=== PATIENT | female | born 1935 | race Caucasian/White ===

== ENCOUNTER 2017-06-25 06:00 | Inpatient (IN) | payer MEDICARE, OTHER ==
--- NOTE | 2017-06-14 11:11 | NUR ---
PATIENT IS HERE TODAY FOR PREADMISSION APPOINTMENT. SHE IS SCHEDULED TO HAVE A RIGHT TOTAL KNEE REPLACEMENT ON 06/25/17. THE PATIENT IS VERY CONCERNED SHE HAS AN APPOINTMENT IS LESS THAN 20 MIN WITH [facility] AND DOES NOT WANT TO MISS THAT APPOINTMENT. SHE STATES SHE IS NOT GOING TO THE RETIREMENT IN [place] AND WOULD LIKE TO STAY IN THE HOSPITAL AFTER SURGERY UNTIL SHE CAN GO HOME. SHE DOES NOT HAVE FAMILY IN THE AREA AND DOES NOT HAVE LONG DISTANCE TO BE ABLE TO CONTACT HER DAUGHTER TO SEE IF SHE CAN COME AND STAY WITH HER. SHE STATES SHE HAS ONE STEP INTO HER HOME AND THEN MANY STEPS INSIDE THE HOME SINCE IT IS A TWO STORY HOME. SHE USES A WALKER TO GET AROUND INSIDE HER HOME AND A WC IF SHE GOES OUT BECAUSE SHE HAS A HARD TIME GETTING AROUND. SHE STATES SHE HAS A TUB/SHOWER COMBO BUT JUST DOES NOT KNOW HOW SHE WILL SHOWER WITHOUT HELP. BEFORE WE COULD FINISH THE PREADMIT SHE ASKED TO BE TAKEN TO HER APPOINTMENT WITH CARDIOLOGY. SHE WAS INSTRUCTED TO COME BACK TO DAY SURGERY SO SHE COULD FINISH THE APPOINTMENT AND GET INSTRUCTIONS ON DAY OF PROCEDURE. THIS INFORMATION WILL BE SENT TO DR JOSE MOELLER AND BOB PLANNING FOR FURTHER FOLLOW UP.
[~2017-06-25] VITALS: Ht 154.9 cm; Wt 74.8 kg
--- OUTSIDE RECORDS SUMMARY | ~2017-06-25 | XMS | Encounter Summary ---
Demographics + + + | Address | [address] | | | [place] [address] | + + + | Home Phone | | + + + | Preferred Language | Unknown | + + + | Marital Status | | + + + | Mandaeism Affiliation | 1001 | + + + | Race | Unknown | + + + | Ethnic Group | Unknown | + + + Author + + + | Author | [facility] | + + + | Organization | [facility] | + + + | Address | Unknown | + + + | Phone | Unavailable | + + + Support + + +---------+ + | Name | Relationship | Address | Phone | + + +---------+ + | Gale Archuleta | ECON | Unknown | | + + +---------+ + Care Team Providers + +------+ + | Care Sales Person Name | Role | Phone | + +------+ + | Christ Martinez DO | PCP | | + +------+ + Reason for Visit + + + | Reason | Comments | + + + | Labs Only | [facility] 10/23/2016, 03/27/2017 | + + + Encounter Details +--------+ + + + + | Date | Type | Department | Care Team | Description | +--------+ + + + + | 04/23/ | Documentati | [facility] [place] | Angeli Raymundo, | Labs Only | | 2018 | on Only | [facility] [place] | LINUX DEVOPS ENGINEER | ([place], [place]. | | | | [address] | | 10/23/2016, | | | | [facility] | | 03/27/2017) | | | | [address] | | | | | | [phone] | | | +--------+ + + + + Social History + +-------+ +--------+------+ | Tobacco Use | Types | Packs/Day | Years | Date | | | | | Used | | + +-------+ +--------+------+ | Never Smoker | | | | | + +-------+ +--------+------+ + +---+---+---+ | Smokeless Tobacco: | | | | | Never Used | | | | + +---+---+---+ + + +---------+ + | Alcohol Use | Drinks/We | oz/Week | Comments | | | ek | | | + + +---------+ + | No | 0 | 0.0 | | | | Standard | | | | | drinks or | | | | | | | | | | equivalen | | | | | t | | | + + +---------+ + + + + | Sex Assigned at | Date Recorded | | | | + + + | Not on file | | + + + as of this encounter Plan of Treatment Not on fileas of this encounter Visit Diagnoses Not on filein this encounter"
--- OUTSIDE RECORDS SUMMARY | ~2017-06-25 | XMS | Encounter Summary ---
Demographics + + + | Address | [address] | | | [place] [address] | + + + | Home Phone | | + + + | Preferred Language | Unknown | + + + | Marital Status | | + + + | Anglican Affiliation | 1001 | + + + | Race | Unknown | + + + | Ethnic Group | Unknown | + + + Author + + + | Author | [facility] | + + + | Organization | [facility] | + + + | Address | Unknown | + + + | Phone | Unavailable | + + + Support + + +---------+ + | Name | Relationship | Address | Phone | + + +---------+ + | Gale Archuleta | ECON | Unknown | | + + +---------+ + Care Team Providers + +------+ + | Care Geometrician Name | Role | Phone | + +------+ + | Christ Martinez DO | PCP | | + +------+ + Reason for Visit + + + | Reason | Comments | + + + | Labs Only | [facility] 05/29/17 | + + + Encounter Details +--------+ + + + + | Date | Type | Department | Care Team | Description | +--------+ + + + + | 06/14/ | Documentati | [facility] [place] | Nikia Jaramillo, | Labs Only ([facility] | | 2018 | on Only | Kim Carl | JABIER | Labs 05/29/17) | | | | [address] | | | | | | [address] | | | | | | [place] [address] | | | | | | [phone] | | | +--------+ + + + [...]
--- OUTSIDE RECORDS SUMMARY | ~2017-06-25 | XMS | Encounter Summary ---
Demographics + + + | Address | [address] | | | [place] [address] | + + + | Home Phone | | + + + | Preferred Language | Unknown | + + + | Marital Status | | + + + | Orthodox Affiliation | 1001 | + + + | Race | Unknown | + + + | Ethnic Group | Unknown | + + + Author + + + | Author | [facility] | + + + | Organization | [facility] | + + + | Address | Unknown | + + + | Phone | Unavailable | + + + Support + + +---------+ + | Name | Relationship | Address | Phone | + + +---------+ + | Gale Archuleta | ECON | Unknown | | + + +---------+ + Care Team Providers + +------+ + | Care Puttier Name | Role | Phone | + +------+ + | Christ Martinez DO | PCP | | + +------+ + Reason for Visit +--------+ + | Reason | Comments | +--------+ + | Other | [facility] 10/23/16 | +--------+ + Encounter Details +--------+ + + + + | Date | Type | Department | Care Team | Description | +--------+ + + + + | 03/30/ | Documentati | [facility] [place] | Asia Lara CMA | Other ([facility] | | 2018 | on Only | [facility] [place] | | Labs 10/23/16) | | | | [address] | | | | | | [place] | | | | | | [address] | | | | | | [phone] | | | +--------+ + + + [...]
--- OUTSIDE RECORDS SUMMARY | ~2017-06-25 | XMS | Clinical Summary ---
Demographics + + + | Address | [address] | | | [place] [address] | + + + | Home Phone | | + + + | Preferred Language | Unknown | + + + | Marital Status | | + + + | Jewish Affiliation | 1001 | + + + | Race | Unknown | + + + | Ethnic Group | Unknown | + + + Author + + + | Author | [facility] | + + + | Organization | [facility] [employer] | + + + | Address | Unknown | + + + | Phone | Unavailable | + + + Support + + +---------+ + | Name | Relationship | Address | Phone | + + +---------+ + | Gale Archuleta | ECON | Unknown | | + + +---------+ + Care Team Providers + +------+ + | Care Basket Sorter Name | Role | Phone | + +------+ + | Christ Martinez DO | PP | | + +------+ + Allergies + + + + + + | Active Allergy | Reactions | Severity | Noted | Comments | | | | | Date | | + + + + + + | Tetanus Antitoxin | Edema | Medium | 12/31/19 | | | | | | 15 | | + + + + + + Current Medications + + +-------+---------+------+------+-------+ | Prescription | Sig. | Disp. | Refills | Star | End | Statu | | | | | | t | Date | s | | | | | | Date | | | + + +-------+---------+------+------+-------+ | gabapentin | Take 300 mg by mouth | | | | | Activ | | (NEURONTIN) 300 MG | every evening. | | | | | e | | capsule | | | | | | | + + +-------+---------+------+------+-------+ | felodipine | Take 5 mg by mouth | | | | | Activ | | (PLENDIL) 5 MG 24 hr | daily. | | | | | e | | tablet | | | | | | | + + +-------+---------+------+------+-------+ | insulin aspart | Inject into the | | | | | Activ | | (NOVOLOG) 100 | skin 3 (three) times | | | | | e | | UNIT/ML | daily before meals. | | | | | | | injectionIndications | 10 units before | | | | | | | : Type 2 Diabetes | breakfast and lunch, | | | | | | | Mellitus | and 15 units before | | | | | | | | dinner | | | | | | + + +-------+---------+------+------+-------+ | insulin glargine | Inject 30 Units into | | | | | Activ | | (LANTUS) 100 UNIT/ML | the skin nightly. | | | | | e | | injection | | | | | | | + + +-------+---------+------+------+-------+ | atorvastatin | Take 10 mg by mouth | | | | | Activ | | (LIPITOR) 10 MG | nightly. | | | | | e | | tablet | | | | | | | + + +-------+---------+------+------+-------+ | | Take 1 tablet by | | | | | Activ | | lisinopril-hydrochlo | mouth 2 (two) times | | | | | e | | rothiazide | daily. | | | | | | | (ZESTORETIC) 20-12.5 | | | | | | | | MG per tablet | | | | | | | + + +-------+---------+------+------+-------+ | celecoxib | Take 200 mg by mouth | | | | | Activ | | (CELEBREX) 200 MG | as needed for Pain. | | | | | e | | capsule | Takes 1-2 Times | | | | | | | | per week | | | | | | + + +-------+---------+------+------+-------+ | metoprolol | Take 100 mg by mouth | | | | | Activ | | (TOPROL-XL) 100 MG | daily. | | | | | e | | 24 hr tablet | | | | | | | + + +-------+---------+------+------+-------+ | Turmeric 500 MG | Take 1 capsule by | | | | | Activ | | CAPS | mouth daily. | | | | | e | + + +-------+---------+------+------+-------+ | nitrofurantoin, | Take 100 mg by mouth | | | | | Activ | | macrocrystal-monohyd | 2 (two) times | | | | | e | | rate, (MACROBID) 100 | daily. | | | | | | | MG | | | | | | | | capsuleIndications: | | | | | | | | Uncomplicated | | | | | | | | Urinary Tract | | | | | | | | Infection | | | | | | | + + +-------+---------+------+------+-------+ | atenolol | Take 50 mg by mouth | | | | 05/28 | Disco | | (TENORMIN) 50 MG | daily. | | | | 0 | ntinu | | tablet | | | | | 18 | ed | + + +-------+---------+------+------+-------+ Active Problems + + + | Problem | Noted Date | + + + | Chest pain | 01/28/2015 | + + + + + | Last Assessment & Plan: She reports chest pain many months | | back did not happen againShe feel better- says her BP And DM are | | better controlled nowShe do not want to do any testing including | | stress test or angiogram at this time- she want to see me incase | | of recurrence of symptomsEcho done recently in [place] | | showed hyperdynamic LV function with concentric remodelling- - | | could be from hypovolemia/ dehydration- encourage to have good | | hydrationMay continue atenolol, Lisinopril/hctz, StatinContinue | | risk factor modificationFollow up 6 months or recurrence of | | symptoms. | + + + + + | Pulmonary HTN | 01/28/2015 | + + + + + | Last Assessment & Plan: Mid to moderate TR on echo with | | moderate-severe PHTN on echoDiscussed with patient- she feel | | improved currently and do not want to do any additional | | testingContinue Lisinopril/hctz, Atenolol, ASAThis could be a | | secondary PHTN from LV diastolic dysfunciton | + + + + + | Chronic diastolic CHF (congestive heart failure) | 01/28/2015 | + + + + + | Last Assessment & Plan: Heart failure of normal EF | | Appears well compensated currently | | No chest pain, no SOB | | Bradly edema improved | | Continue Lisinopril, Atenolol | | Follow up in 6 months. | + + Encounters +--------+ + + + + | Date | Type | Specialty | Care Team | Description | +--------+ + + + + | 06/14/ | Office | | Cherie Coronado | Mild diastolic | | 2018 | Visit | | [place] | dysfunction (Primary | | | | | | Dx); Mild pulmonary | | | | | | hypertension (HCC); | | | | | | Mild tricuspid | | | | | | regurgitation; | | | | | | Hypertension goal BP | | | | | | (blood pressure) < | | | | | | 140/80; Encounter | | | | | | for pre-operative | | | | | | cardiovascular | | | | | | clearance; Murmur, | | | | | | cardiac; | | | | | | Hyperlipidemia, | | | | | | unspecified | | | | | | hyperlipidemia type; | | | | | | History of | | | | | | precordial chest | | | | | | pain; Stage 3 | | | | | | chronic kidney | | | | | | disease; Type 2 | | | | | | diabetes mellitus | | | | | | without | | | | | | complication, with | | | | | | long-term current | | | | | | use of insulin (HCC) | +--------+ + + + + | 06/14/ | Documentati | | Nikia Jaramillo, | Labs Only ([facility] | | 2017 | on Only | | [place] | Labs 05/29/17) | +--------+ + + + + | 06/11/ | Documentati | | Francy Stewart, | Other ([facility] | | 2017 | on Only | | [place] | Labs) | +--------+ + + + + | 06/04/ | Documentati | | Carrol, | Labs Only | 2017 | on Only | | CHEPE Alvarado | | +--------+ + + + + | 05/22/ | Ancillary | | Cherie Coronado | Mild diastolic | | 2017 | Procedure | | [place] | dysfunction; Other | | | | | | secondary pulmonary | | | | | | hypertension; | | | | | | Tricuspid 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, | | | | | | unspecified | | | | | | etiology; | | | | | | Hypertension goal BP | | | | | | (blood pressure) < | | | | | | 140/80; Encounter | | | | | | for pre-operative | | | | | | cardiovascular | | | | | | clearance; Murmur, | | | | | | cardiac | +--------+ + + + + | 05/03/ | Office | | Cherie Coronado | History of | | 2017 | Visit | | [place] | precordial chest | | | | | | pain (Primary Dx); | | | | | | Mild diastolic | | | | | | dysfunction; Other | | | | | | secondary pulmonary | | | | | | hypertension; | | | | | | Tricuspid 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, | | | | | | unspecified | | | | | | etiology; | | | | | | Hypertension goal BP | | | | | | (blood pressure) < | | | | | | 140/80; | | | | | | Hyperlipidemia, | | | | | | unspecified | | | | | | hyperlipidemia type; | | | | | | Type 2 diabetes | | | | | | mellitus without | | | | | | complication, with | | | | | | long-term current | | | | | | use of insulin | | | | | | (HCC); Stage 3 | | | | | | chronic kidney | | | | | | disease; Encounter | | | | | | for pre-operative | | | | | | cardiovascular | | | | | | clearance | +--------+ + + + + | 04/23/ | Documentati | | Angeli Raymundo | Labs Only | | 2018 | on Only | | [employer] SU[employer] TECHNICIAN | (Calvin Gama. | | | | | | 10/23/2016, | | | | | | 03/27/2017) | +--------+ + + + + | 04/23/ | Documentati | | Rosaura, | Other | | 2018 | on Only | | JABIER Chisholm | (10/26/16.Christ | | | | | | Michelle.Tho | | | | | | notes) | +--------+ + + + + | 04/04/ | Documentati | | Ashley Gerber MA | Labs Only (09/2016) | | 2018 | on Only | | | | +--------+ + + + + | 03/30/ | Documentati | | Asia Lara CMA | Other ([facility] | | 2018 | on Only | | | Labs 10/23/16) | +--------+ + + + + from Last 3 Months Family History + + +------+ + | Medical History | Relation | Name | Comments | + + +------+ + | Diabetes type II | Father | | | + + +------+ + | Breast cancer | Sister | | | + + +------+ + | Cancer | Sister | | | + + +------+ + | Diabetes type II | Sister | | | + + +------+ + + +------+ + + | Relation | Name | Status | Comments | + +------+ + + | Father | | | Hx DM | | | | (Age | | | | | 87) | | + +------+ + + | Mother | | | unknown health status and cause of | | | | (Age | | | | | late | | | | | 80's ) | | + +------+ + + | Sister | | | | + +------+ + + Social History + +-------+ +--------+------+ [...] on file | | + + + Last Filed Vital Signs + + + + | Vital Sign | Reading | Time Taken | + + + + | Blood Pressure | 122/52 | 06/14/2017 10:48 AM PDT | + + + + | Pulse | 74 | 06/14/2017 10:48 AM PDT | + + + + | Temperature | - | - | + + + + | Respiratory Rate | 18 | 06/14/2017 10:48 AM PDT | + + + + | Oxygen Saturation | 97% | 06/14/2017 10:48 AM PDT | + + + + | Inhaled Oxygen | - | - | | Concentration | | | + + + + | Weight | 72.5 kg (159 lb 14.4 | 06/14/2017 10:48 AM PDT | | | oz) | | + + + + | Height | 154.9 cm (5' 1") | 06/14/2017 10:48 AM PDT | + + + + | Body Mass Index | 30.21 | 06/14/2017 10:48 AM PDT | + + + + Plan of Treatment + + + + + | Health Maintenance | Due Date | Last Done | Comments | + + + + + | DEXA SCAN SCREENING | | | | | | 0 | | | + + + + + | Vaccine: | | | | | Pneumococcal 65+ | 0 | | | | Low/Medium Risk (1 | | | | | of 2 - PCV13) | | | | + + + + + | Vaccine: Influenza | | | | | (Season Ended) | 8 | | | + + + + + Procedures + +--------+ + + + | Procedure Name | Priori | Date/Time | Associated Diagnosis | Comments | | | ty | | | | + +--------+ + + + | ECHO OUTSIDE | Routin | 05/22/2017 | Mild diastolic | Results for this | | INTERPRETATION | e | 10:56 AM | dysfunction Other | procedure are in the | | STANDARD | | PDT | secondary pulmonary | results section. | | | | | hypertension | | | | | | Tricuspid 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, | | | | | | unspecified etiology | | | | | | Hypertension goal | | | | | | BP (blood pressure) | | | | | | < 140/80 Encounter | | | | | | for pre-operative | | | | | | cardiovascular | | | | | | clearance Murmur, | | | | | | cardiac | | + +--------+ + + + from Last 3 Months Results Lipid panel (06/01/2017 9:30 AM) + + + + | Component | Value | Ref Range | + + + + | CHOLESTEROL | 125 | 200 mg/dL | + + + + | TRIGLYCERIDES | 120 | 30 - 150 mg/dL | + + + + | HDL CHOL | 38.0 (A) | 40 mg/dl | + + + + | LDL CALC | 63 | 100 mg/dL | + + + + | LDl/HDL Ratio | | | + + + + | CHOL/HDL | 3.3 | 4.44 | + + + + | VLDL CHOL | 24 | 4 - 40 mg/dL | + + + + | NON HDL CHOL | 87 | 130 | + + + + + + + | Specimen | Performing Laboratory | + + + | Blood | [facility] [address] [place] [address] [place] | | | [id number] | + + + ECHO outside interpretation standard (05/22/2017 10:56 AM) + + + | Specimen | Performing Laboratory | + + + | | [id number] [address] | + + + + + | Impressions | + + | 1. Left ventricular systolic function is hyperdynamic with an estimated EF of >70%. | | 2. The diastolic filling pattern indicates impaired relaxation consistent with mild | | dysfunction (Grade I). 3. The right ventricle is normal in size and function. 4. | | Gucz-nf-yfrjugiw eccentric tricuspid regurgitation present. 5. There is mild pulmonary | | hypertension. | + + + + | Narrative | + + | Patient Name: Alfonso Rios Date of : 1935 | | Performing Physician: GLADYS WEI MD | | INDICATIONS | | HTN, Murmur CONCLUSIONS 1. Left ventricular systolic | | function is hyperdynamic with an estimated EF of >70%. 2. The diastolic filling pattern | | indicates impaired relaxation consistent with mild dysfunction (Grade I). 3. The right | | ventricle is normal in size and function. 4. Gljl-xq-mfptmkgj eccentric tricuspid | | regurgitation present. 5. There is mild pulmonary hypertension. FINDINGS -------- | | ECG rhythm: Sinus rhythm. Study: A 2-dimensional transthoracic echocardiogram with | | m-mode, spectral and color flow Doppler was perfomed. Study: This was a technically | | adequate study. Left Ventricle: Left ventricular systolic function is hyperdynamic with | | an estimated EF of >70%. Left Ventricle: The left ventricle cavity size is normal. | | Left Ventricle: Left ventricular wall thickness is normal. Left Ventricle: No regional | | wall motion abnormalities. Left Ventricle: The diastolic filling pattern indicates | | impaired relaxation consistent with mild dysfunction (Grade I). Right Ventricle: The | | right ventricle is normal in size and function. Right Ventricle: The right ventricle | | is normal in size. Left Atrium: The left atrial size is normal. Right Atrium: The | | right atrial size is normal. Aortic Valve: The aortic valve appears to be trileaflet. | | Aortic Valve: There is mild aortic valve sclerosis without stenosis. Aortic Valve: | | There is no evidence of aortic stenosis. Mitral Valve: There is trace mitral | | regurgitation. Mitral Valve: No evidence of MVP. Mitral Valve: Mild mitral annular | | calcification present. Tricuspid Valve: The tricuspid valve appears structurally | | normal. Tricuspid Valve: Zchl-rj-pxpaessa eccentric tricuspid regurgitation present. | | Tricuspid Valve: There is mild pulmonary hypertension. Tricuspid Valve: The right | | ventricular systolic pressure (pulmonary artery systolic pressure), as measured by | | Doppler, is 38 - 43 mm Hg. Pulmonic Valve: The pulmonic valve is normal. Pulmonic | | Valve: Mild pulmonic regurgitation. Pericardium: There is no pericardial effusion. | | IVC/Hepatic Veins: The IVC is normal size (1.5-2.5cm) and collapses >50% with sniff, | | consistent with central venous pressures of 5-10mmHg. Aorta: The aortic root, ascending | | aorta and aortic arch are normal. Mass: No mass visualized Thrombus: No clot | | visualized Thrombus: No vegetation visualized. Septum: No ASD observed. Septum: No | | VSD observed. MEASUREMENTS Ao asc: 2.99 cm Ao Diam: 2.73 cm | | Ao sinus: 2.[address] junct: 2.85 cm IVC: 1.48 cm LA Diam: 3.43 | | cm LA Major: 4.67 cm EDV(Teich): 55.07 ml IVSd: 0.97 cm LVIDd: 3.61 | | cm LVPWd: 0.98 cm LVOT Area: 3.67 cm2 LVOT Diam: 2.16 cm %FS: 32.48 | | % EF(Teich): 61.75 % ESV(Teich): 21.06 ml LVIDs: 2.44 cm SV(Teich): | | 34.01 ml RA Major: 4.92 cm RV Major: 7.41 cm RVIDd: 2.69 cm LVEF MOD | | A2C: 69.31 % SV MOD A2C: 36.16 ml LVEF MOD A4C: 66.70 % SV MOD A4C: | | 39.93 ml EF Biplane: 66.91 % LVEDV MOD BP: 55.75 ml LVESV MOD BP: 18.44 | | ml LVEDV MOD A2C: 52.17 ml LVLd A2C: 7.13 cm LVEDV MOD A4C: 59.86 ml | | LVLd A4C: 7.10 cm LVESV MOD A2C: 16.01 ml LVLs A2C: 5.53 cm LVESV MOD | | A4C: 19.93 ml LVLs A4C: 5.94 cm LAESV(A-L): 50.00 ml LAESV Index | | (A-L): 28.73 ml/m2 LAAs A2C: 15.00 cm2 LAESV A-L A2C: 43.59 ml LALs | | A2C: 4.38 cm LAAs A4C: 17.21 cm2 LAESV A-L A4C: 50.39 ml LALs A4C: | | 4.99 cm RAAs: 12.71 cm2 RAESV A-L: 26.83 ml RAESV MOD: 26.68 ml | | RALs: 5.11 cm TAPSE: 2.43 cm AV maxP.01 mmHg AV meanP.84 | | mmHg AV Vmax: 1.65 m/s AV Vmean: 1.15 m/s AV VTI: 35.88 cm ADONAY Vmax: | | 2.44 cm2 ADONAY (VTI): 2.69 cm2 AVAI Vmax: 0.00 cm2/m2 AVAI (VTI): 0.00 | | cm2/m2 LVOT maxP.85 mmHg LVOT meanP.98 mmHg LVSI Dopp: 55.56 | | ml/m2 LVSV Dopp: 96.67 ml LVOT Vmax: 1.10 m/s LVOT Vmean: 0.81 m/s LVOT | | VTI: 26.29 cm MV A Boaz: 1.17 m/s MV DecT: 260.62 ms MV E Boaz: 0.76 | | m/s MV E/A Ratio: 0.65 MV PHT: 75.58 ms MVA By PHT: 2.91 cm2 Septal | | e': 0.05 m/s Septal E/e': 13.53 RAP: 5 mmHg RVSP: 37.73 mmHg TR | | maxP.73 mmHg TR Vmax: 2.86 m/s State Inspector: Authenticated | | by: GLADYS WEI MD Report Date/Time: -- [id number] | + + + + | Procedure Note | + + | Neil, Rad Results In - 05/22/2017 7:21 PM PDT Patient Name: Cesar Rios of | | : 5Accession: [id number] Physician: GLADYS WEI MD | | INDICATIONS HTN | | , MurmurCONCLUSIONS 1. Left ventricular systolic function is hyperdynamic with | | an estimated EF of >70%.2. The diastolic filling pattern indicates impaired relaxation | | consistent with mild dysfunction (Grade I).3. The right ventricle is normal in size and | | function.4. Gazp-fb-tuyrbzxs eccentric tricuspid regurgitation present.5. There is mild | | pulmonary hypertension.FINDINGS--------ECG rhythm: Sinus rhythm.Study: A 2-dimensional | | transthoracic echocardiogram with m-mode, spectral and color flow Doppler was perfomed. | | Study: This was a technically adequate study.Left Ventricle: Left ventricular systolic | | function is hyperdynamic with an estimated EF of >70%. Left Ventricle: The left | | ventricle cavity size is normal. Left Ventricle: Left ventricular wall thickness is | | normal. Left Ventricle: No regional wall motion abnormalities. Left Ventricle: The | | diastolic filling pattern indicates impaired relaxation consistent with mild dysfunction | | (Grade I).Right Ventricle: The right ventricle is normal in size and function. Right | | Ventricle: The right ventricle is normal in size.Left Atrium: The left atrial size is | | normal.Right Atrium: The right atrial size is normal.Aortic Valve: The aortic valve | | appears to be trileaflet. Aortic Valve: There is mild aortic valve sclerosis without | | stenosis. Aortic Valve: There is no evidence of aortic stenosis.Mitral Valve: There is | | trace mitral regurgitation. Mitral Valve: No evidence of MVP. Mitral Valve: Mild mitral | | annular calcification present.Tricuspid Valve: The tricuspid valve appears structurally | | normal. Tricuspid Valve: Yxxw-cp-ewepmimt eccentric tricuspid regurgitation present. | | Tricuspid Valve: There is mild pulmonary hypertension. Tricuspid Valve: The right | | ventricular systolic pressure (pulmonary artery systolic pressure), as measured by | | Doppler, is 38 - 43 mm Hg.Pulmonic Valve: The pulmonic valve is normal. Pulmonic Valve: | | Mild pulmonic regurgitation.Pericardium: There is no pericardial effusion.IVC/Hepatic | | Veins: The IVC is normal size (1.5-2.5cm) and collapses >50% with sniff, consistent with | | central venous pressures of 5-10mmHg.Aorta: The aortic root, ascending aorta and aortic | | arch are normal.Mass: No mass visualizedThrombus: No clot visualized Thrombus: No | | vegetation visualized.Septum: No ASD observed. Septum: No VSD | | observed.MEASUREMENTS Ao asc: 2.99 cmAo Diam: 2.73 cmAo sinus: 2.86 | | cmAo st junct: 2.85 cmIVC: 1.48 cmLA Diam: 3.43 cmLA Major: 4.67 cmEDV(Teich): | | 55.07 mlIVSd: 0.97 cmLVIDd: 3.61 cmLVPWd: 0.98 cmLVOT Area: 3.67 [id number] Diam: | | 2.16 cm%FS: 32.48 %EF(Teich): 61.75 %ESV(Teich): 21.06 mlLVIDs: 2.44 | | cmSV(Teich): 34.01 mlRA Major: 4.92 cmRV Major: 7.41 cmRVIDd: 2.69 cmLVEF MOD | | A2C: 69.31 %SV MOD A2C: 36.16 mlLVEF MOD A4C: 66.70 %SV MOD A4C: 39.93 mlEF | | Biplane: 66.91 %LVEDV MOD BP: 55.75 mlLVESV MOD BP: 18.44 mlLVEDV MOD A2C: 52.17 | | mlLVLd A2C: 7.13 cmLVEDV MOD A4C: 59.86 mlLVLd A4C: 7.10 cmLVESV MOD A2C: 16.01 | | mlLVLs A2C: 5.53 cmLVESV MOD A4C: 19.93 mlLVLs A4C: 5.94 cmLAESV(A-L): 50.00 | | mlLAESV Index (A-L): 28.73 ml/m2LAAs A2C: 15.00 [id number] A-L A2C: 43.59 mlLALs | | A2C: 4.38 cmLAAs A4C: 17.21 [id number] A-L A4C: 50.39 mlLALs A4C: 4.99 cmRAAs: | | 12.71 [id number] A-L: 26.83 mlRAESV MOD: 26.68 mlRALs: 5.11 cmTAPSE: 2.43 cmAV | | maxP.01 mmHgAV meanP.84 mmHgAV Vmax: 1.65 m/Theodore Vmean: 1.15 m/Theodore VTI: | | 35.88 cmAVA Vmax: 2.44 cm2AVA (VTI): 2.69 uq4FRSD Vmax: 0.00 cm2/m2AVAI (VTI): | | 0.00 cm2/m2LVOT maxP.85 mmHgLVOT meanP.98 mmHgLVSI Dopp: 55.56 ml/m2LVSV | | Dopp: 96.67 mlLVOT Vmax: 1.10 m/sLVOT Vmean: 0.81 m/sLVOT VTI: 26.29 cmMV A Boaz: | | 1.17 m/sMV DecT: 260.62 msMV E Boaz: 0.76 m/sMV E/A Ratio: 0.65 MV PHT: 75.58 | | msMVA By PHT: 2.91 ic3Nvgsxb e': 0.05 m/sSeptal E/e': 13.53 RAP: 5 mmHgRVSP: | | 37.73 mmHgTR maxP.73 mmHgTR Vmax: 2.86 m/sSonographer: Authenticated by: | | YASMANI BURCHeport Date/Time: -- [id number]:1. Left ventricular | | systolic function is hyperdynamic with an estimated EF of >70%.2. The diastolic filling | | pattern indicates impaired relaxation consistent with mild dysfunction (Grade I).3. The | | right ventricle is normal in size and function.4. Epwa-wq-kubmfaaj eccentric tricuspid | | regurgitation present.5. There is mild pulmonary hypertension. | | | |MEASUREMENTS | | | |Ao asc: 2.99 cm | |Ao Diam: 2.73 cm | |Ao sinus: 2.86 cm | |Ao st junct: 2.85 cm | |IVC: 1.48 cm | |LA Diam: 3.43 cm | |LA Major: 4.67 cm | |EDV(Teich): 55.07 ml | |IVSd: 0.97 cm | |LVIDd: 3.61 cm | |LVPWd: 0.98 cm | |LVOT Area: 3.67 cm2 | |LVOT Diam: 2.16 cm | |%FS: 32.48 % | |EF(Teich): 61.75 % | |ESV(Teich): 21.06 ml | |LVIDs: 2.44 cm | |SV(Teich): 34.01 ml | |RA Major: 4.92 cm | |RV Major: 7.41 cm | |RVIDd: 2.69 cm | |LVEF MOD A2C: 69.31 % | |SV MOD A2C: 36.16 ml | |LVEF MOD A4C: 66.70 % | |SV MOD A4C: 39.93 ml | |EF Biplane: 66.91 % | |LVEDV MOD BP: 55.75 ml | |LVESV MOD BP: 18.44 ml | |LVEDV MOD A2C: 52.17 ml | |LVLd A2C: 7.13 cm | |LVEDV MOD A4C: 59.86 ml | |LVLd A4C: 7.10 cm | |LVESV MOD A2C: 16.01 ml | |LVLs A2C: 5.53 cm | |LVESV MOD A4C: 19.93 ml | |LVLs A4C: 5.94 cm | |LAESV(A-L): 50.00 ml | |LAESV Index (A-L): 28.73 ml/m2 | |LAAs A2C: 15.00 cm2 | |LAESV A-L A2C: 43.59 ml | |LALs A2C: 4.38 cm | |LAAs A4C: 17.21 cm2 | |LAESV A-L A4C: 50.39 ml | |LALs A4C: 4.99 cm | |RAAs: 12.71 cm2 | |RAESV A-L: 26.83 ml | |RAESV MOD: 26.68 ml | |RALs: 5.11 cm | |TAPSE: 2.43 cm | |AV maxP.01 mmHg | |AV meanP.84 mmHg | |AV Vmax: 1.65 m/s | |AV Vmean: 1.15 m/s | |AV VTI: 35.88 cm | |ADONAY Vmax: 2.44 cm2 | |ADONAY (VTI): 2.69 cm2 | |AVAI Vmax: 0.00 cm2/m2 | |AVAI (VTI): 0.00 cm2/m2 | |LVOT maxP.85 mmHg | |LVOT meanP.98 mmHg | |LVSI Dopp: 55.56 ml/m2 | |LVSV Dopp: 96.67 ml | |LVOT Vmax: 1.10 m/s | |LVOT Vmean: 0.81 m/s | |LVOT VTI: 26.29 cm | |MV A Boaz: 1.17 m/s | |MV DecT: 260.62 ms | |MV E Boaz: 0.76 m/s | |MV E/A Ratio: 0.65 | |MV PHT: 75.58 ms | |MVA By PHT: 2.91 cm2 | |Septal e': 0.05 m/s | |Septal E/e': 13.53 | |RAP: 5 mmHg | |RVSP: 37.73 mmHg | |TR maxP.73 mmHg | |TR Vmax: 2.86 m/s | | | |State Inspector: | |Authenticated by: GLADYS WEI MD | |Report Date/Time: -- [id number] | | | |IMPRESSION: | |1. Left ventricular systolic function is hyperdynamic with an estimated EF of >70%. | |2. The diastolic filling pattern indicates impaired relaxation consistent with mild dysfunc tion (Grade I). | |3. The right ventricle is normal in size and function. | |4. Anen-wd-mnhxgznw eccentric tricuspid regurgitation present. | |5. There is mild pulmonary hypertension. | + + EKG STANDARD 12 LEAD (05/03/2017 10:46 AM) + + + + | Component | Value | Ref Range | + + + + | Ventricular Rate | 68 | BPM | + + + + | Atrial Rate | 68 | BPM | + + + + | P-R Interval | 152 | ms | + + + + | QRS Duration | 84 | ms | + + + + | Q-T Interval | 424 | ms | + + + + | QTC Calculation | 450 | ms | | (Alissa) | | | + + + + | Calculated P [place] | 53 | degrees | + + + + | Calculated R [place] | 73 | degrees | + + + + | Calculated T [place] | 48 | degrees | + + + + | Diagnosis | Please refer to Providers office visit note | | | | for Providers Interpretation.Confirmed by | | | | [facility], ADAN Maldonado ([id number]), | | | | non linear editor Magdaleno De León ([id number]) on 05/03/2017 | | | | 10:58:32 AM | | + + + + + + + | Specimen | Performing Laboratory | + + + | | [facility] [address] [place] [address] | + + + from Last 3 Months Insurance + +--------+ +------+-------+ + | Payer | Benefi | Subscriber | Type | Phone | Address | | | t Plan | ID | | | | | | / | | | | | | | Group | | | | | + +--------+ +------+-------+ + | MEDICARE | MEDICA | xxxxxxxxxx | | | [address] | | | RE | | | | [place] [address] | | | IP-OP | | | | | + +--------+ +------+-------+ + | MEDICAID | MEDICA | xxxxxxxx | | | [address] | | | ID | | | | [place] | | | [place] | | | | [phone] | + +--------+ +------+-------+ + + +--------+ +--------+ + + | Guarantor Name | Accoun | Relation to | Date | Phone | Billing Address | | | t Type | Patient | of | | | | | | | | | | + +--------+ +--------+ + + | ALFONSO RIOS | Person | Self | [birth year] | Home: | [address] | | | al/Fam | | 1936 | [phone] [place] | | | [place]enn | | | [phone] [phone] | + +--------+ +--------+ + +
--- OUTSIDE RECORDS SUMMARY | ~2017-06-25 | XMS | Encounter Summary ---
Demographics + + + | Address | [address] | | | [place] [address] | + + + | Home Phone | | + + + | Preferred Language | Unknown | + + + | Marital Status | | + + + | Caodaism Affiliation | 1001 | + + + | Race | Unknown | + + + | Ethnic Group | Unknown | + + + Author + + + | Author | [facility] | + + + | Organization | [facility] | + + + | Address | Unknown | + + + | Phone | Unavailable | + + + Support + + +---------+ + | Name | Relationship | Address | Phone | + + +---------+ + | Gale Archuleta | ECON | Unknown | | + + +---------+ + Care Team Providers + +------+ + | Care Tire Retreader Name | Role | Phone | + +------+ + | Christ Martinez DO | PCP | | + +------+ + Reason for Visit +--------+ + | Reason | Comments | +--------+ + | Other | [facility] | +--------+ + Encounter Details +--------+ + + + + | Date | Type | Department | Care Team | Description | +--------+ + + + + | 06/11/ | Documentati | [facility] | Francy Stewart, | Other ([facility] | | 2018 | on Only | [facility] | JABIER | Labs) | | | | [address] | | | | | | [place] | | | | | | [address] | | | | | | [phone] | | | +--------+ + + + [...] Treatment Not on fileas of this encounter Results Lipid panel (06/01/2017 9:30 AM) + [...] | + + + | Blood | [address] | | | [address] | + + + in this encounter Visit Diagnoses Not on filein this encounter"
--- OUTSIDE RECORDS SUMMARY | ~2017-06-25 | XMS | Clinical Summary ---
Demographics + + + | Address | [address] | | | [place] [address] | + + + | Home Phone | | + + + | Preferred Language | Unknown | + + + | Marital Status | Unknown | + + + | Mu-Ism Affiliation | Unknown | + + + | Race | Unknown | + + + | Ethnic Group | Unknown | + + + Author + + + | Author | [facility] | | | and [facility] | + + + | Organization | [facility] | | | and [facility] | + + + | Address | Unknown | + + + | Phone | Unavailable | + + + Support + + +---------+ + | Name | Relationship | Address | Phone | + + +---------+ + | None,Per Patient | ECON | Unknown | | + + +---------+ + Care Team Providers + +------+ + | Care Sports Photographer Name | Role | Phone | + +------+ + | Christ Martinez DO | PP | | + +------+ + Allergies + + + + + + | Active Allergy | Reactions | Severity | Noted | Comments | | | | | Date | | + + + + + + | Tetanus Toxoids | | | 03/30/19 | | | | | | 15 [...] | | Activ | | (NEURONTIN) 300 mg | nightly. | | | | | e | | capsule | | | | | | | + + +-------+---------+------+------+-------+ Active Problems + + + | Problem | Noted Date | + + + | Peripheral neuropathy | 03/30/2014 | + + + | DDD (degenerative disc disease), lumbar | 03/30/2014 | + + + | Bilateral leg weakness | 03/30/2014 | + + + | Diabetes mellitus (HCC) | 03/30/2014 | + + + Social History + +-------+ +--------+------+ | Tobacco Use | Types | Packs/Day | Years | Date | | | | | Used | | + +-------+ +--------+------+ | Never Smoker | | | | | + +-------+ +--------+------+ + + + | Sex Assigned at | Date Recorded | | | | + + + | Not on file | | + + + Last Filed Vital Signs + + + + | Vital Sign | Reading | Time Taken | + + + + | Blood Pressure | - | - | + + + + | Pulse | - | - | + + + + | Temperature | - | - | + + + + | Respiratory Rate | - | - | + + + + | Oxygen Saturation | - | - | + + + + | Inhaled Oxygen | - | - | | Concentration | | | + + + + | Weight | 77.1 kg (170 lb) | 03/30/20141099 PST | + + + + | Height | 154.9 cm (5' 1") | 03/30/20141099 PST | + + + + | Body Mass Index | 32.12 | 03/30/20141099 PST | + + + + Plan of Treatment + + + + + | Health Maintenance | Due Date | Last Done | Comments | + + + + + | Diabetic Eye Exam | | | | | (Bi-Annually) | 3 | | | + + + + + | Diabetic Foot Exam | | | | | | 3 | | | + + + + + | Hemoglobin A1c Q3 | | | | | Months | 3 | | | + + + + + | Vaccine: | | | | | Pneumococcal (PPSV23 | 0 | | | | only) 65+ | | | | | Low/Medium Risk (1 | | | | | of 1 - PPSV23) | | | | + + + + + | Microalbumin | | | | | Screening | 5 | | | + + + + + | Vaccine: Influenza | | | | | (Season Ended) | 8 | | | + + + + + Results Not on filefrom Last 3 Months Insurance + +--------+ +--------+ +---------+ | Payer | Benefi | Subscriber | Type | Phone | Address | | | t Plan | ID | | | | | | / | | | | | | | Group | | | | | + +--------+ +--------+ +---------+ | [employer] | FAMILY | xxxxxxxxxx | Medica | [id number] | | MEDICARE | CARE | | re | [id number] | | | | PRMCR | | | | | | | MDCR | | | | | | | HMO | | | | | + +--------+ +--------+ +---------+ | [employer] | MODA | [id number] | Medica | [phone] | | | MEDICAID HMO | HEALTH | | id | [id number] | | | | MDCD | | | | | | | HMO [place] | | | | | + +--------+ +--------+ +---------+ + +--------+ +--------+ + + | Guarantor Name | Accoun | Relation to | Date | Phone | Billing Address | | | t Type | Patient | of | | | | | | | | | | + +--------+ +--------+ + + | ALFONSO AGGARWAL | Person | Self | [birth year] | Home: | [address] | | | al/Fam | | 1936 | [phone] | [place] | | | [place] | | [phone] | + +--------+ +--------+ + +
--- OUTSIDE RECORDS SUMMARY | ~2017-06-25 | XMS | Encounter Summary ---
Demographics + + + | Address | [address] | | | [place] [address] | + + + | Home Phone | | + + + | Preferred Language | Unknown | + + + | Marital Status | | + + + | Temple Affiliation | 1001 | + + + | Race | Unknown | + + + | Ethnic Group | Unknown | + + + Author + + + | Author | [facility] | + + + | Organization | [facility] | + + + | Address | Unknown | + + + | Phone | Unavailable | + + + Support + + +---------+ + | Name | Relationship | Address | Phone | + + +---------+ + | Gale Archuleta | ECON | Unknown | | + + +---------+ + Care Team Providers + +------+ + | Care Cna Hha Name | Role | Phone | + +------+ + | Christ Martinez DO | PCP | | + +------+ + Encounter Details +--------+ + + + + | Date | Type | Department | Care Team | Description | +--------+ + + + + | 05/22/ | Ancillary | [facility] | Cherie Coronado | Mild diastolic | | 2018 | Procedure | ECHO | [address] | dysfunction; Other | | | | | [address] | secondary pulmonary | | | | | [place] [address] | hypertension; | | | | | [phone] | Tricuspid valve | | | | [...] cardiac | +--------+ + + + + Social [...] Treatment Not on fileas of this encounter Procedures + +--------+ + + + | [...] | | + +--------+ + + + in this encounter Results ECHO outside interpretation standard (05/22/2017 10:56 AM) + + + | Specimen | Performing Laboratory | + + + | | [address] [place] [address] | + + + + + | Impressions | + + | 1. Left ventricular systolic function is hyperdynamic with an estimated EF of >70%. | | 2. The diastolic filling pattern indicates impaired relaxation consistent with mild | | dysfunction (Grade I). 3. The right ventricle is normal in size and function. 4. | | Bgdh-ce-lqudtkcf eccentric tricuspid regurgitation present. 5. There is mild pulmonary | | hypertension. | + + + + | Narrative | + + | Patient Name: Yessy Aggarwal Date of : 1935 | | Performing Physician: GLADYS WEI MD | | INDICATIONS | | HTN, Murmur CONCLUSIONS 1. Left ventricular systolic | | function is hyperdynamic with an estimated EF of >70%. 2. The diastolic filling pattern | | indicates impaired relaxation consistent with mild dysfunction (Grade I). 3. The right | | ventricle is normal in size and function. 4. Iadn-pv-qshoefwv eccentric tricuspid | | regurgitation present. 5. [...] appears structurally | | normal. Tricuspid Valve: Irxj-qr-hjyouiew eccentric tricuspid regurgitation present. | | Tricuspid [...] | maxP.73 mmHg TR Vmax: 2.86 m/s Business Practices Officer: Authenticated | | by: GLADYS WEI MD Report Date/Time: -- 30_[id number]_30:15:26 | + + + + | Procedure Note | + + | Neil, Rad Results In - 05/22/2017 7:21 PM PDT Patient Name: Cesar Aggarwal of | | : 5Accession: [id number] Physician: GLADYS WEI MD | | INDICATIONS HTN | | , MurmurCONCLUSIONS 1. Left ventricular systolic function is hyperdynamic with | | an estimated EF of >70%.2. The diastolic filling pattern indicates impaired relaxation | | consistent with mild dysfunction (Grade I).3. The right ventricle is normal in size and | | function.4. Yocy-nv-vjpxlvgv eccentric tricuspid regurgitation present.5. There is mild [...] appears structurally | | normal. Tricuspid Valve: Gjkb-dn-cbugqdmd eccentric tricuspid regurgitation present. | | Tricuspid [...] cmLVIDd: 3.61 cmLVPWd: 0.98 cmLVOT Area: 3.67 zi6HRVT Diam: | | 2.16 cm%FS: 32.48 %EF(Teich): [...] mlLAESV Index (A-L): 28.73 ml/m2LAAs A2C: 15.00 ey2IBNVX A-L A2C: 43.59 mlLALs | | A2C: 4.38 cmLAAs A4C: 17.21 da3VOEML A-L A4C: 50.39 mlLALs A4C: 4.99 cmRAAs: | | 12.71 wn7SCWOG A-L: 26.83 mlRAESV MOD: 26.68 mlRALs: 5.11 cmTAPSE: 2.43 cmAV | | maxP.01 mmHgAV meanP.84 mmHgAV Vmax: 1.65 m/Theodore Vmean: 1.15 m/Theodore VTI: | | 35.88 cmAVA Vmax: 2.44 cm2AVA (VTI): 2.69 uy4AECY Vmax: 0.00 cm2/m2AVAI (VTI): | | 0.00 cm2/m2LVOT maxP.85 mmHgLVOT meanP.98 mmHgLVSI Dopp: 55.56 ml/m2LVSV | | Dopp: 96.67 mlLVOT Vmax: 1.10 m/sLVOT Vmean: 0.81 m/sLVOT VTI: 26.29 cmMV A Boaz: | | 1.17 m/sMV DecT: 260.62 msMV E Boaz: 0.76 m/sMV E/A Ratio: 0.65 MV PHT: 75.58 | | msMVA By PHT: 2.91 tk3Rxvqsb e': 0.05 m/sSeptal E/e': 13.53 RAP: 5 mmHgRVSP: | | 37.73 mmHgTR maxP.73 mmHgTR Vmax: 2.86 m/sSonographer: Authenticated by: | | YASMANI BURCHeport Date/Time: -- 24_[id number]_[id number]:15:26IMPRESSION:1. Left ventricular | | systolic function is hyperdynamic with an estimated EF of >70%.2. The diastolic filling | | pattern indicates impaired relaxation consistent with mild dysfunction (Grade I).3. The | | right ventricle is normal in size and function.4. Lnde-eh-haqtuoyb eccentric tricuspid | | regurgitation present.5. There [...] |TR Vmax: 2.86 m/s | | | |Business Practices Officer: | |Authenticated by: GLADYS WEI MD | |Report Date/Time: -- 10_[id number]_42:15:26 | | | |IMPRESSION: | |1. Left ventricular systolic function is hyperdynamic with an estimated EF of >70%. | |2. The diastolic filling pattern indicates impaired relaxation consistent with mild dysfunc tion (Grade I). | |3. The right ventricle is normal in size and function. | |4. Obbo-it-cfhwfmbr eccentric tricuspid regurgitation present. | |5. There is mild pulmonary hypertension. | + + in this encounter Visit Diagnoses + + | Diagnosis | + + | Mild diastolic dysfunction | + + | Heart disease, unspecified | + + | Other secondary pulmonary hypertension (HCC) | + + | Tricuspid valve insufficiency, unspecified etiology | + + | Hypertension goal BP (blood pressure) < 140/80 | + + | Unspecified essential hypertension | + + | Encounter for pre-operative cardiovascular clearance | + + | Pre-operative cardiovascular examination | + + | Murmur, cardiac | + + | Undiagnosed cardiac murmurs | + +"
--- OUTSIDE RECORDS SUMMARY | ~2017-06-25 | XMS | Encounter Summary ---
Demographics + + + | Address | [address] | | | [place] [address] | + + + | Home Phone | | + + + | Preferred Language | Unknown | + + + | Marital Status | | + + + | Sikh Affiliation | 1001 | + + + | Race | Unknown | + + + | Ethnic Group | Unknown | + + + Author + + + | Author | [facility] | + + + | Organization | [facility] | + + + | Address | Unknown | + + + | Phone | Unavailable | + + + Support + + +---------+ + | Name | Relationship | Address | Phone | + + +---------+ + | Gale Archuleta | ECON | Unknown | | + + +---------+ + Care Team Providers + +------+ + | Care Tobacco Stripper Hand Name | Role | Phone | + +------+ + | Christ Martinez DO | PCP | | + +------+ + Reason for Visit +--------+ + | Reason | Comments | +--------+ + | Other | 10/26/16.Christ Martinez.Progress notes | +--------+ + Encounter Details +--------+ + + + + | Date | Type | Department | Care Team | Description | +--------+ + + + + | 04/23/ | Documentati | [facility] | Rosaura, | Other | | 2018 | on Only | [facility] [place] | JABIER [place]m | (10/26/16.Christ | | | | [address] | | [place] | | | | [facility] [place] | | notes) | | | | [address] | | | | | | [phone] | | | +--------+ + + + [...]
--- OUTSIDE RECORDS SUMMARY | ~2017-06-25 | XMS | Clinical Summary ---
Demographics + + + | Address | [address] | | | [place] [address] | + + + | Home Phone | | + + + | Preferred Language | Unknown | + + + | Marital Status | Single | + + + | Jew Affiliation | Unknown | + + + | Race | White | + + + | Ethnic Group | or | + + + Author + + + | Author | [facility] | + + + | Organization | [facility] | + + + | Address | Unknown | + + + | Phone | Unavailable | + + + Support + + +---------+ + | Name | Relationship | Address | Phone | + + +---------+ + | HARSHAL CHRISTY | ECON | Unknown | | + + +---------+ + Care Team Providers + +------+ + | Care Etiquette Coach Name | Role | Phone | + +------+ + PP | Unavailable | + +------+ + Source Comments LISANDRA is fully live on both [facility] and [facility] Allergies + + + + + + | Active Allergy | Reactions | Severity | Noted | Comments | | | | | Date | | + + + + + + | Tetanus Vaccines And | | High | 12/23/19 | Pt became swollen | | Toxoid | | | 08 | | + + + + + + Current Medications + + +-------+---------+------+------+-------+ | Prescription | Sig. | Disp. | Refills | Star | End | Statu | | | | | | t | Date | s | | | | | | Date | | | + + +-------+---------+------+------+-------+ | metformin 500 mg | 3 tabs PO BID | | | | | Activ | | Oral Tablet | | | | | | e | + + +-------+---------+------+------+-------+ | atenolol 50 mg | 1 tab daily | | | | | Activ | | Oral Tablet | | | | | | e | + + +-------+---------+------+------+-------+ | | 1 tab dialy | | | | | Activ | | hydrochlorothiazide | | | | | | e | | 25 mg Oral Tablet | | | | | | | + + +-------+---------+------+------+-------+ | glyBURIDE 5 mg | 1 tab BID | | | | | Activ | | Oral Tablet | | | | | | e | + + +-------+---------+------+------+-------+ | felodipine SR 5 mg | 1 tab daily | | | | | Activ | | Oral Tablet | | | | | | e | | Sustained Release 24 | | | | | | | | hr | | | | | | | + + +-------+---------+------+------+-------+ | lisinopril 20 mg | 2 tab daily | | | | | Activ | | Oral Tablet | | | | | | e | + + +-------+---------+------+------+-------+ | VICODIN 5-500 mg | 1-2 tab PO PRN pain | | | | | Activ | | Oral Tablet | | | | | | e | + + +-------+---------+------+------+-------+ Active Problems + + + | Problem | Noted Date | + + + | Lumbar spondylosis | 12/23/2007 | + + + + + | Overview: ICD10 | + + Family History + + +------+ + | Medical History | Relation | Name | Comments | + + +------+ + | Non-contributory | Father | | | + + +------+ + | Non-contributory | Mother | | | + + +------+ + + +------+ + + | Relation | Name | Status | Comments | + +------+ + + | Father | | | | + +------+ + + | Mother | | | | + +------+ + + Social History + +-------+ +--------+------+ | Tobacco Use | Types | Packs/Day | Years | Date | | | | | Used | | + +-------+ +--------+------+ | Never Smoker | | | | | + +-------+ +--------+------+ + + +---------+ + | Alcohol Use | Drinks/We | oz/Week | Comments | | | ek | | | + + +---------+ + | No | | | | + + +---------+ + + + + | Sex Assigned at | Date Recorded | | | | + + + | Not on file | | + + + Last Filed Vital Signs + + + + | Vital Sign | Reading | Time Taken | + + + + | Blood Pressure | 142/86 | 12/23/2007 11:06 AM PDT | + + + + | Pulse | 79 | 12/23/2007 11:06 AM PDT | + + + + | Temperature | 36.7 C (98.1 F) | 12/23/2007 11:06 AM PDT | + + + + | Respiratory Rate | 9 | 12/23/2007 11:06 AM PDT | + + + + | Oxygen Saturation | - | - | + + + + | Inhaled Oxygen | - | - | | Concentration | | | + + + + | Weight | 79.4 kg (175 lb) | 12/23/2007 11:06 AM PDT | + + + + | Height | 154.9 cm (5' 1") | 12/23/2007 11:06 AM PDT | + + + + | Body Mass Index | 33.07 | 12/23/2007 11:06 AM PDT | + + + + Plan of Treatment + + + + + | Health Maintenance | Due Date | Last Done | Comments | + + + + + | INFLUENZA VACCINE | | | | | (FLU SHOT) | 8 | | | + + + + + Results Not on filefrom Last 3 Months
--- OUTSIDE RECORDS SUMMARY | ~2017-06-25 | XMS | Encounter Summary ---
Demographics + + + | Address | [address] | | | [place] [address] | + + + | Home Phone | | + + + | Preferred Language | Unknown | + + + | Marital Status | | + + + | Sabianist Affiliation | 1001 | + + + | Race | Unknown | + + + | Ethnic Group | Unknown | + + + Author + + + | Author | [facility] | + + + | Organization | [facility] | + + + | Address | Unknown | + + + | Phone | Unavailable | + + + Support + + +---------+ + | Name | Relationship | Address | Phone | + + +---------+ + | Gale Archuleta | ECON | Unknown | | + + +---------+ + Care Team Providers + +------+ + | Care Mill Hand Name | Role | Phone | + +------+ + | Christ Martinez DO | PCP | | + +------+ + Reason for Visit + + + | Reason | Comments | + + + | Labs Only | | + + + Encounter Details +--------+ + + + + | Date | Type | Department | Care Team | Description | +--------+ + + + + | 06/04/ | Documentati | [facility] | [place] | Labs Only | | 2018 | on Only | [facility] [place] | [facility] [place] | | | | | [address] | | | | | | [facility] [place] | | | | | | [address] | | | | | | [phone] | | | +--------+ + + + [...]
--- OUTSIDE RECORDS SUMMARY | ~2017-06-25 | XMS | Encounter Summary ---
Demographics + + + | Address | [address] | | | [place] [address] | + + + | Home Phone | | + + + | Preferred Language | Unknown | + + + | Marital Status | | + + + | Latter Day Affiliation | 1001 | + + + | Race | Unknown | + + + | Ethnic Group | Unknown | + + + Author + + + | Author | [facility] | + + + | Organization | [facility] | + + + | Address | Unknown | + + + | Phone | Unavailable | + + + Support + + +---------+ + | Name | Relationship | Address | Phone | + + +---------+ + | Gale Archuleta | ECON | Unknown | | + + +---------+ + Care Team Providers + +------+ + | Care Psychological Operations Officer Name | Role | Phone | + +------+ + | Christ Martinez DO | PCP | | + +------+ + Reason for Visit + + + | Reason | Comments | + + + | Labs Only | 09/2016 | + + + Encounter Details +--------+ + + + + | Date | Type | Department | Care Team | Description | +--------+ + + + + | 04/04/ | Documentati | [facility] | Ashley Gerber MA | Labs Only (09/2016) | | 2018 | on Only | [place] | | | | | | [address] | | | | | | [place] | | | | | | [address] | | | | | | [phone] | | | +--------+ + + + [...]
--- OUTSIDE RECORDS SUMMARY | ~2017-06-25 | XMS | Encounter Summary ---
Demographics + + + | Address | [address] | | | [place] [address] | + + + | Home Phone | | + + + | Preferred Language | Unknown | + + + | Marital Status | | + + + | Mandaen Affiliation | [id number] | + + + | Race | Unknown | + + + | Ethnic Group | Unknown | + + + Author + + + | Author | [facility] | + + + | Organization | [facility] | + + + | Address | Unknown | + + + | Phone | Unavailable | + + + Support + + +---------+ + | Name | Relationship | Address | Phone | + + +---------+ + | Gale Archuleta | ECON | Unknown | | + + +---------+ + Care Team Providers + +------+ + | Care Family Engagement Specialist Name | Role | Phone | + +------+ + | Christ Crews DO | PCP | | + +------+ + Reason for Visit + + + | Reason | Comments | + + + | Follow-up | annual | + + + Routine Exam (Routine) +--------+--------+ + + + + | Status | Reason | Specialty | Diagnoses / | Referred By | Referred To | | | | | Procedures | Contact | Contact | +--------+--------+ + + + + | Closed | | Cardiology | Diagnoses | Michelle | Sneha, | | | | | Type 2 | DO Christ | Stephen Velazquez MD | | | | | diabetes | [address] | [address] | | | | | mellitus | [address] | Joel Torres | | | | | with | [address] | | | | | hyperglycemi | [place], | [place], [place] | | | | | a ([facility]) | [place] [address] | [address] Phone: | | | | | snf | Phone: | [phone] | | | | | (current) | [phone] | Fax: | | | | | use of | Fax: | [phone] | | | | | insulin | [phone] | | | | | | (HCC) | | | | | | | Hypertensive | | | | | | | heart | | | | | | | disease | | | | | | | without | | | | | | | heart | | | | | | | failure | | | | | | | Procedures | | | | | | | routine | | | +--------+--------+ + + + + Encounter Details +--------+---------+ + + + | Date | Type | Department | Care Team | Description | +--------+---------+ + + + | 05/03/ | Office | [facility] | Cherie Coronado | History of | | 2018 | Visit | Cardiology Vlad | [address] | precordial chest | | | | [address] | Joel Nair F | pain (Primary Dx); | | | | [address] | [place] [address] | Mild diastolic | | | | [place] [address] | [phone] | dysfunction; Other | | | | [phone] | | secondary pulmonary | | | [...] | | | | | clearance | +--------+---------+ + + + Social History + +-------+ [...] + + + as of this encounter Last Filed Vital Signs + + + + | Vital Sign | Reading | Time Taken | + + + + | Blood Pressure | 116/56 | 05/03/2017 10:37 AM PST | + + + + | Pulse | 70 | 05/03/2017 10:37 AM PST | + + + + | Temperature | - | - | + + + + | Respiratory Rate | 20 | 05/03/2017 10:37 AM PST | + + + + | Oxygen Saturation | 97% | 05/03/2017 10:37 AM PST | + + + + | Inhaled Oxygen | - | - | | Concentration | | | + + + + | Weight | 74.8 kg (165 lb) | 05/03/2017 10:37 AM PST | + + + + | Height | 154.9 cm (5' 1") | 05/03/2017 10:37 AM PST | + + + + | Body Mass Index | 31.18 | 05/03/2017 10:37 AM PST | + + + + in this encounter Instructions Patient Instructions - Cherie Coronado ARNP - 05/03/2017 10:30 AM PSTI have ordered y ou fasting labs to be done at [facility] and also ordered you an Echo to be done at [facility] See me back in 4-6 weeks so I can do cardiac risk assessment for your knee surgery in this encounter Progress Notes Cherie Coronado ARNP - 05/03/2017 10:30 AM PSTFormatting of this note may be differen t from the original. Date of visit: 05/04/2017 Primary Care Physician: [facility] CHIEF COMPLAINT: Chief Complaint Patient presents with Follow-up annual HISTORY OF PRESENT ILLNESS: Ms. Yessy Aggarwal is an 81-year-old woman who is here today for cardiac clearance for a nticipated right knee surgery to be done at the end of May She has a history of chest pain, hypertension, hyperlipidemia, moderate to severe pulmonary hypertension, mild to moderate tricuspid regurgitation, chronic diastolic heart failure, ty pe II diabetes. She was a patient of Dr. Hoover and last seen by him in January 2015 and I reviewed his note today. He documented her above findings, and that she had declined doing a stress test or angiogram at that point. I also reviewed the notes from her PCP, Dr. Crews who saw her last on April 26, 2017. Her last Echo performed September 2014 and reported normal EF of 59 percent with moderate left ventricular hypertrophy, mild diastolic dysfunction, and moderate pulmonary hypertensio n. Her EKG done in the office today showed normal sinus rhythm at 60 bpm and similar to E KG performed in January [address] Hoover. Her labs performed in September 2016 showed a normal CMP except for creatinine of 1.19 and G FR of 43, consistent with stage III chronic kidney disease with normal liver enzymes and an A1c of 7.9, and her last A1c done in February was improved at 6.8.Her last lipid panel was do cumented by Dr. Crews is being done in August 2015 an overall fairly well controlled with an LDL of 63, triglycerides of 131, cholesterol 126. Today, she denies any chest pain, palpitations, dyspnea, dizziness,or syncope. She also denies any signs or symptoms of stroke or TIA. She was unsure of the purpose of her visit and I explained to her that she was being seen to have a cardiac evaluation for degree of risk with anticipated right knee surgery. She is a lifelong unknown nonsmoker and nondrinker, denies any use of recreational or ill icit drugs, drinks minimal caffeine, seldom exercises due to back and knee pain and uses a w alker. She moved from [place] in the s, and is unsure of most of her family history, but reports that she is the last surviving member of 8 children. She brought her medication bottles to the clinic today and I reviewed them with her person al REVIEW OF SYSTEMS: Negative except for pertinent items noted in HPI. Constitutional: Denies fatigue or unexplained weight loss. Appetite is good. Weight is st able. Denies night sweats fevers or chills HENT: Denies nosebleeds. Positive for minor hearing loss Denies dysphagia Eyes: Recent cataract surgery. History of glaucoma, not on any treatment Denies visual dis turbance or double vision. Respiratory/Sleep:: Denies cough and shortness of breath. Denies hemoptysis or excessive s putum production. Denies snoring, orthopnea, PND. Cardiovascular: Denies chest pain, palpitations and leg swelling. Denies history of rheuma tic fever. Denies claudication . Gastrointestinal: Denies history of gastroesophageal reflux disease . Denies nausea, vomi ting, abdominal pain and blood in stool. Genitourinary: Denies hematuria. Musculoskeletal: arthralgia both knees, back, Hx DJD and DDD. History of epidural injectio ns left knee replacement, anticipating right knee surgery, Dr. Bull, anticipating right kne e surgery Denies myalgias, back pain and arthralgias. Skin: Denies color change. Denies rash or lesions Neurological: Denies for peripheral neuropathy to lower legs, secondary to back injuries a nd diabetes Denies history of stroke/Transient ischemic attack.Denies history of seizures. D enies dizziness, syncope Hematological/Oncology Does not bruise/bleed easily. Denies history of cancer Endocrine: Positive for type II diabetes, denies thyroid disease. Denies excessive thirst or hunger. Psychiatric/Behavioral: reports some mild chronic anxiety , Vaccines: Current on 2017 flu vaccine. Current on pneumonia vaccine. Habits/Social : Denies history of smoking. Denies EtOH use. Drinks servings of caffeine da jenn . Denies illicit drug use. Exercising due to knee pain, uses walker. Moved from [facility] in the 1950's, last surviving of 8 children. Has 5 children of her own. . 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 felodipine (PLENDIL) 5 MG 24 hr tablet Take 5 mg by mouth daily. gabapentin (NEURONTIN) 300 MG capsule Take 300 mg by mouth every evening. insulin aspart (NOVOLOG) 100 UNIT/ML injection Inject into the skin 3 (three) times da jenn before meals. insulin glargine (LANTUS) 100 UNIT/ML injection Inject into the skin nightly. lisinopril-hydrochlorothiazide (ZESTORETIC) 20-12.5 MG per tablet Take 1 tablet by mout h daily. atenolol (TENORMIN) 50 MG tablet Take 50 mg by mouth daily. No facility-administered medications prior to visit. PHYSICAL EXAM: Wt Readings from Last 3 Encounters: 05/03/17 74.8 kg (165 lb) 01/28/15 84 kg (185 lb 1.6 oz) Temp Readings from Last 3 Encounters: No data found for Temp BP Readings from Last 3 Encounters: 05/03/17 116/56 01/28/15 134/70 Pulse Readings from Last 3 Encounters: 05/03/17 70 01/28/15 87 GENERAL: Well developed, well nourished, in no distress. Appears approximately stated age . HEENT: Normocephalic, atraumatic. EYES: PERRL, EOM normal. MOUTH: Oral mucosae moist, dentition adequate, no lesions noted NECK: No JVD, lymphadenopathy, thyromegaly, bruits. Carotid pulses are 2+ bilaterally LUNGS/CHEST: Clear bilaterally, with no rales, rhonchi or wheezing noted, respirations unl abored HEART: Nondisplaced PMI, regular rate and rhythm, S1, S2 normal. 2/6 diastolic Murmur LLS B , near apex. No rubs or gallops noted. ABDOMEN: Soft, nontender, no organomegaly, masses or bruits. Bowel sounds are normal in a ll 4 quadrants. The abdominal aortic pulsation is not palpable. EXTREMITIES: Trace bilateral ankle edema. Radial pulses 2+ bilaterally. Femoral pulses ar e 2+ bilaterally without bruits. DP and PT pulses are 2+ bilaterally. No clubbing. Gait i s slow and stiff SKIN: Warm and dry, capillary refill is normal, no lesions. NEUROLOGIC: Awake, alert and oriented x 3. No focal motor or sensory deficits, but poor me marjorie PSYCHIATRIC: Appropriate, affect appears normal DATA: Blood tests: No results found for: WBC, RBC, HGB, HCT, PLT No results found for: NA, K, CL, CO2, ANIONGAP, GLUF, BUN, CREATININE, BCR, CA, EGFR No results found for: CHOL, TRIG, LDL, LDL, GLUF, HGBA1C No results found for: BNP, CKTOTAL, TSH, CRP No results found for: METF, NMETFX, TFNMFX, [id number], JNAXIC32QIK, TOTEPI PROCEDURES/IMAGING Two-view chest x-ray: 2012. PA and lateral views show clear lungs and normal cardiom ediastinal silhouette. Normal pulmonary vasculature. No evidence of pneumonia, effusion, c ongestive heart failure, or other acute pathology. Significant degenerative change and anky losis to spine ECHO Echo: 09/29: EF 59 percent..Moderate LV hypertrophy. Mild diastolic dysfunction. R V normal in size and function. Normal bi atrial size normal. Aortic valve calcified and th ickened, no stenosis or regurgitation. Mitral valve slight thickening to the posterior mitr al valve, trace MR. Mild TR.. Moderate pulmonary hypertension, RVSP 50 mmHg. EKG /EVENT MONITOR EK: Normal sinus rhythm, normal EKG. Rate 66 bpm, CT 160 ms, QRS 76 ms, QTC 419 ms LABS Labs: 09/24/2015: Lipids: Cholesterol 126, triglycerides 131, HDL 37, LDL 63 Labs: 2016: CMP: Sodium 142, potassium 4.1, chloride 105, glucose 54, BUN 38, creatin ine 1.19, GFR 43. AST 12, ALT 11, alk phos 70, total bilirubin 0.4, albumin 3.8. A1c 7.9. A1c: 03/27/2017 :6.8 ( 148) ASSESSMENT & PLAN: She is here today for cardiac risk assessment for anticipated right knee surgery at the e may. She was unsure of the purpose of her visit , which I explained to her is to evaluate her he art Function prior to her having knee surgery I reviewed her previous testing in detail with her as she was unaware that she had any pr oblems with her heart, but told her that her EKG was normal today, and she is asymptomatic w ith blood pressure and heart rate well controlled, and her weight is down 20 pounds since , and her diabetes also seems better controlled. I do not have a lipid panel since August 2015, so I have ordered a CMP and lipid panel with copies to be sent to her PCP, Dr. Crews are. I have also ordered an updated echo and I wi ll follow-up with her in 4-5 weeks with the results. I will send Dr. Bull a letter documenting her cardiac risk assessment after I see her ba ck on June 07 1. History of precordial chest pain 2. Chronic diastolic CHF (congestive heart failure) 3. Other secondary pulmonary hypertension 4. Tricuspid valve insufficiency, unspecified etiology 5. Hypertension goal BP (blood pressure) < 140/80 6. Hyperlipidemia, unspecified hyperlipidemia type 7. Type 2 diabetes mellitus without complication, with long-term current use of insulin (HC C) 8. Stage 3 chronic kidney disease 9. Encounter for pre-operative cardiovascular clearance 10. Murmur, cardiac Orders Placed This Encounter Procedures Comprehensive metabolic panel Lipid panel Electrocardiogram, 12-lead Echo cardiac adult complete The following portions of the patient's history were personally reviewed by me and updated as appropriate: EKG tracings, other specialty provider and PCP notes,any Hospital admission and discharge summaries, any ER records , current and previous cardiac testing and procedure reports and d teresa, medication bottles brought to visit today personally reviewed by me. Allergies, current medications.labs Family history, past medical history, past social history, past surgical history. Problem list. AUDREY Renteria [facility] 05/04/2017in this encounter Plan of Treatment + +--------+ + + | Name | Priori | Associated Diagnoses | Order Schedule | | | ty | | | + +--------+ + + | Comprehensive metabolic panel | Routin | Mild Diastolic | Expected: | | | e | Dysfunction Other | 05/03/2017, Expires: | | | | Secondary Pulmonary | 05/03/2018 | | | | Hypertension (Hcc) | | | | | Tricuspid Valve | | | | | Insufficiency, | | | | | Unspecified Etiology | | | | | Hyperlipidemia, | | | | | Unspecified | | | | | Hyperlipidemia Type | | | | | Type 2 Diabetes | | | | | Mellitus Without | | | | | Complication, With | | | | | Long-Term Current | | | | | Use Of Insulin (Hcc) | | | | | Stage 3 Chronic | | | | | Kidney Disease | | | | | Encounter For | | | | | Pre-Operative | | | | | Cardiovascular | | | | | Clearance | | + +--------+ + + | Lipid panel | Routin | Tricuspid Valve | Expected: | | | e | Insufficiency, | 05/03/2017, Expires: | | | | Unspecified Etiology | 05/03/2018 | | | | Hyperlipidemia, | | | | | Unspecified | | | | | Hyperlipidemia Type | | | | | Type 2 Diabetes | | | | | Mellitus Without | | | | | Complication, With | | | | | Long-Term Current | | | | | Use Of Insulin (Hcc) | | + +--------+ + + as of this encounter Results ECHO outside interpretation standard (05/22/2017 10:56 AM) + + + | Specimen | Performing Laboratory | + + + | | [address] [address] | + + + + + | Impressions | + + | 1. Left ventricular systolic function is hyperdynamic with an estimated EF of >70%. | | 2. The diastolic filling pattern indicates impaired relaxation consistent with mild | | dysfunction (Grade I). 3. The right ventricle is normal in size and function. 4. | | Jnwd-rv-lugfpzvj eccentric tricuspid regurgitation present. 5. There is [...] is normal in size and function. 4. Geel-zv-bddqraix eccentric tricuspid | | regurgitation present. 5. [...] appears structurally | | normal. Tricuspid Valve: Wfhg-ti-vnlztjzf eccentric tricuspid regurgitation present. | | Tricuspid [...] | maxP.73 mmHg TR Vmax: 2.86 m/s Performance Improvement Specialist: Authenticated | | by: GLADYS WEI MD Report Date/Time: -- [id number] | + + + + | Procedure Note | + + | Neil, Rad Results In - 05/22/2017 7:21 PM PDT Patient Name: Cesar Aggarwal of | | : 5Accession: [id number] Physician: GLADYS WEI MD | | INDICATIONS HTN | | , MurmurCONCLUSIONS 1. Left ventricular systolic function is hyperdynamic with | | an estimated EF of >70%.2. The diastolic filling pattern indicates impaired relaxation | | consistent with mild dysfunction (Grade I).3. The right ventricle is normal in size and | | function.4. Nght-ba-faobdqky eccentric tricuspid regurgitation present.5. There is mild [...] appears structurally | | normal. Tricuspid Valve: Srhb-ew-raofaelz eccentric tricuspid regurgitation present. | | Tricuspid [...] cmLVIDd: 3.61 cmLVPWd: 0.98 cmLVOT Area: 3.67 [id number] Diam: | | 2.16 cm%FS: 32.48 %EF(Teich): [...] mlLAESV Index (A-L): 28.73 ml/m2LAAs A2C: 15.00 [id number] A-L A2C: 43.59 mlLALs | | A2C: 4.38 cmLAAs A4C: 17.21 [id number] A-L A4C: 50.39 mlLALs A4C: 4.99 cmRAAs: | | 12.71 [id number] A-L: 26.83 mlRAESV MOD: 26.68 mlRALs: 5.11 cmTAPSE: 2.43 cmAV | | maxP.01 mmHgAV meanP.84 mmHgAV Vmax: 1.65 m/Theodore Vmean: 1.15 m/Theodore VTI: | | 35.88 cmAVA Vmax: 2.44 cm2AVA (VTI): 2.69 wo7RFOC Vmax: 0.00 cm2/m2AVAI (VTI): | | 0.00 cm2/m2LVOT maxP.85 mmHgLVOT meanP.98 mmHgLVSI Dopp: 55.56 ml/m2LVSV | | Dopp: 96.67 mlLVOT Vmax: 1.10 m/sLVOT Vmean: 0.81 m/sLVOT VTI: 26.29 cmMV A Boaz: | | 1.17 m/sMV DecT: 260.62 msMV E Boaz: 0.76 m/sMV E/A Ratio: 0.65 MV PHT: 75.58 | | msMVA By PHT: 2.91 ox5Cmhadl e': 0.05 m/sSeptal E/e': 13.53 RAP: 5 mmHgRVSP: | | 37.73 mmHgTR maxP.73 mmHgTR Vmax: 2.86 m/sSonographer: Authenticated by: | | Ysabel BURCH Date/Time: -[id number]:1. Left ventricular | | systolic function is hyperdynamic with an estimated EF of >70%.2. The diastolic filling | | pattern indicates impaired relaxation consistent with mild dysfunction (Grade I).3. The | | right ventricle is normal in size and function.4. Iaau-gb-kepvpnvp eccentric tricuspid | | regurgitation present.5. There [...] |TR Vmax: 2.86 m/s | | | |Performance Improvement Specialist: | |Authenticated by: GLADYS WEI MD | |Report Date/Time: -[id number] | | | |IMPRESSION: | |1. Left ventricular systolic function is hyperdynamic with an estimated EF of >70%. | |2. The diastolic filling pattern indicates impaired relaxation consistent with mild dysfunc tion (Grade I). | |3. The right ventricle is normal in size and function. | |4. Mkyr-it-ugzeplnp eccentric tricuspid regurgitation present. | |5. There [...] Calculation | 450 | ms | | (Gumeet) | | | + + + + | Calculated P [place] | 53 | degrees | + + + + | Calculated R [place] | 73 | degrees | + + + + | Calculated T [place] | 48 | degrees | + + + + | Diagnosis | Please refer to Providers office visit note | | | | for Providers Interpretation.Confirmed by | | | | [facility] Read Only, ADAN Maldonado ([id number]), | | | | restaurant expeditor Magdaleno De León ([id number]) on 05/03/2017 | | | | 10:58:32 AM | | + + + + + + + | Specimen | Performing Laboratory | + + + | | [facility] [address] [address] | + + + in this encounter Visit Diagnoses + + | Diagnosis | + + | History of precordial chest pain - Primary | + + | Personal history of other specified diseases | + + | Mild diastolic dysfunction | + + | Heart disease, unspecified | + + | Other secondary pulmonary hypertension (HCC) | + + | Tricuspid valve insufficiency, unspecified etiology | + + | Hypertension goal BP (blood pressure) < 140/80 | + + | Unspecified essential hypertension | + + | Hyperlipidemia, unspecified hyperlipidemia type | + + | Type 2 diabetes mellitus without complication, with long-term current use of insulin | | (HCC) | + + | Stage 3 chronic kidney disease | + + | Encounter for pre-operative cardiovascular clearance | + + | Pre-operative cardiovascular examination | + + | Murmur, cardiac | + + | Undiagnosed cardiac murmurs | + + | Hypertensive left ventricular hypertrophy, without heart failure | + +
--- OUTSIDE RECORDS SUMMARY | ~2017-06-25 | XMS | Encounter Summary ---
Demographics + + + | Address | [address] | | | [place] [address] | + + + | Home Phone | | + + + | Preferred Language | Unknown | + + + | Marital Status | | + + + | Yazidism Affiliation | 1001 | + + + | Race | Unknown | + + + | Ethnic Group | Unknown | + + + Author + + + | Author | [facility] | + + + | Organization | [facility] | + + + | Address | Unknown | + + + | Phone | Unavailable | + + + Support + + +---------+ + | Name | Relationship | Address | Phone | + + +---------+ + | Gale Archuleta | ECON | Unknown | | + + +---------+ + Care Team Providers + +------+ + | Care Eyelet Punch Operator Name | Role | Phone | + +------+ + | Christ Crews DO | PCP | | + +------+ + Reason for Visit + + + | Reason | Comments | + + + | Follow-up | 5 week- Echo Done | + + + Encounter Details +--------+---------+ + + + | Date | Type | Department | Care Team | Description | +--------+---------+ + + + | 06/14/ | Office | [facility] | Cherie Coronado | Mild diastolic | | 2018 | Visit | [facility] [place] | Cindy, OVENS SUPERVISOR [address] | dysfunction (Primary | | | | [address] | [address] F | Dx); Mild pulmonary | | | | [address] | [place] [address] | hypertension (HCC); | | | | [place] [address] | [phone] | Mild tricuspid | | | | [phone] | | regurgitation; | | | | [...] | | use of insulin (HCC) | +--------+---------+ + + + Social History [...] AM PDT | + + + + in this encounter Instructions Patient Instructions - Cherie Coronado ARNP - 06/14/2017 10:30 AM PDTYour Echo looked better today but still have mild pulmonary hypertension, and mild to moderate tricuspid reg urgitation , and okay for surgery See me back in one year but sooner if needed. in this encounter Progress Notes Cherie Coronado, OVENS SUPERVISOR - 06/14/2017 10:30 AM PDTFormatting of this note may be differen t from the original. Date of visit: 06/15/2017 Primary Care Physician: CHRIST CREWS CHIEF COMPLAINT: Chief Complaint Patient presents with Follow-up 5 week- Echo Done HISTORY OF PRESENT ILLNESS: Ms. Yessy Aggarwal is an 81-year-old woman who is here today for cardiac clearance for a nticipated right knee surgery to be done at the end of May She has a history of previous chest, now resolved,hypertension, hyperlipidemia, mild pulmon shaheed hypertension, mild to moderate tricuspid regurgitation, Mild diastolic heart failure, t ype II diabetes. She was a patient of Dr. Hoover and last seen by him in January 2015 . He documented she had declined a stress test or angiogram when he saw her. I also previously reviewed the notes from her PCP, Dr. Crews who saw her last on April. I saw her last on May 04, 2017 when I repeated her EKG which showed normal sinus rhythm at 60 bpm and stable since January 2015, and also ordered an echo, CMP and lipids Her previous testing and procedures are documented below. Her lipid panel performed June 01, 2017 showed lipids are well controlled with cholesterol of 125, triglycerides of 120 and LDL of 63, CMP normal except for low glucose of 56 and BUN of 39 with creatinine of 0.95 and GFR of 56 and A1c of 6.4, and CBC shows elevated white bl ood cell count of 14, hemoglobin of 10.9, hematocrit of 33.9, with elevated neutrophils and low lymphocytes, and urinary urinalysis showed likely urinary tract infection with mild elev ation to WBC , 3+ bacteria and moderate leukoesterase, and INR was 1.3 Her Echo performed 05/22/2017 reports improved EF, and decreased pulmonary hypertension wi th a hyperdynamic EF of greater than 70 percent. LV is normal in size, mild diastolic dysfu nction, RV normal in size and function, mild to moderate eccentric tricuspid regurgitation, and mild pulmonary hypertension, with no apparent pericardial effusion, and normal size aort ic root, ascending aorta, and aortic arch. Today she reports she is just finishing a week's worth of antibiotics for her urinary tra ct infection, and getting a repeat urinalysis today. She also reports she has followed up w desean Crews about her low blood sugars, and for some reason her blood sugars have been ru nning a low, and she has lost 6 pounds since I saw her last. She reports her knee surgery is still planned for the end of May Today, she denies any chest pain, palpitations, dyspnea, dizziness,or syncope. She als o denies any signs or symptoms of stroke or TIA. She is a [employer] and is a lifelong unknown nonsmoker and nondrinker, den ies any use of recreational or illicit drugs, drinks minimal caffeine, seldom exercises due to back and knee pain and uses a walker. She moved from [place] in the 1949's, and is unsure of most of her family history, but reports that she is the last surviving member of 8 children. She brought her medication bottles to the clinic today and I reviewed them with her person tarik REVIEW OF SYSTEMS: Negative except for pertinent [...] knee replacement, anticipating right knee surgery, Dr. Blul, anticipating right kne e surgery Denies myalgias, back pain and arthralgias. Skin: Denies color change. Denies rash or lesions Neurological: Denies for peripheral neuropathy to lower legs, secondary to back injuries a nd diabetes Denies history of stroke/Transient ischemic attack.Denies history of seizures. D enies dizziness, syncope Hematological/Oncology Does not bruise/bleed easily. Denies history of cancer Endocrine: Positive for type II diabetes, reports recent low blood sugars, see HPI , , andrey es thyroid disease. Denies excessive thirst or hunger. Psychiatric/Behavioral: reports some mild chronic anxiety , Vaccines: Current on 2017 flu vaccine. Current on pneumonia vaccine. Habits/Social : Denies history of smoking. Denies EtOH use. Drinks servings of caffeine da jenn . Denies illicit drug use. Exercising due to knee pain, uses walker. Moved from [facility] in the s, last surviving of 8 children. Has 5 children of her own. . 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 celecoxib (CELEBREX) 200 MG capsule Take 200 mg by mouth as needed for Pain. Takes 1-2 Times per week felodipine (PLENDIL) 5 MG 24 hr tablet Take 5 mg by mouth daily. gabapentin (NEURONTIN) 300 MG capsule Take 300 mg by mouth every evening. insulin aspart (NOVOLOG) 100 UNIT/ML injection Inject into the skin 3 (three) times da jenn before meals. 10 units before breakfast and lunch, and 15 units before dinner insulin glargine (LANTUS) 100 UNIT/ML injection Inject 30 Units into the skin nightly. lisinopril-hydrochlorothiazide (ZESTORETIC) 20-12.5 MG per tablet Take 1 tablet by mout h 2 (two) times daily. metoprolol (TOPROL-XL) 100 MG 24 hr tablet Take 100 mg by mouth daily. atenolol (TENORMIN) 50 MG tablet Take 50 mg by mouth daily. No facility-administered medications prior to visit. PHYSICAL EXAM: Wt Readings from Last 3 Encounters: 06/14/17 72.5 kg (159 lb 14.4 oz) 05/03/17 74.8 kg (165 lb) 01/28/15 84 kg (185 lb 1.6 oz) Temp Readings from Last 3 Encounters: No data found for Temp BP Readings from Last 3 Encounters: 06/14/17 122/52 05/03/17 116/56 01/28/15 134/70 Pulse Readings from Last 3 Encounters: 06/14/17 74 05/03/17 70 01/28/15 87 GENERAL: Well developed, [...] ANIONGAP, GLUF, BUN, CREATININE, BCR, CA, EGFR Lab Results Component Value Date CHOL 125 06/01/2017 TRIG 120 06/01/2017 LDL 63 06/01/2017 No results found for: BNP, CKTOTAL, TSH, CRP No results found for: METF, NMETFX, TFNMFX, [id number], QCJGSK10AXY, TOTEPI PROCEDURES/IMAGING Two-view chest x-ray: 2012. PA and lateral views show clear lungs and normal cardiom ediastinal silhouette. Normal pulmonary vasculature. No evidence of pneumonia, effusion, c ongestive heart failure, or other acute pathology. Significant degenerative change and anky losis to spine ECHO Last Echo: 05/22/2017:( [facility]) SR. TAS. EF greater than 70 percent. LV normal in size and wa ll thickness. No regional wall motion abnormalities. Mild diastolic dysfunction, grade 1, normal for age. RV normal in size and function. Normal size atria. Aortic valve trileafle t, but mild aortic valve sclerosis without stenosis. Trace MR, no mitral valve prolapse, mi ld MAC. Tricuspid valve structurally normal, mild to moderate eccentric tricuspid regurgita tion. Mild pulmonary hypertension, RVSP 38-43 mmHg. Mild NM. No pericardial effusion. No rmal size IVC, normal CVP. Aortic root, ascending aorta, and aortic arch are normal. No cl ot or mass visualized Echo: 09/29: EF 59 percent..Moderate LV hypertrophy. [...] sinus rhythm, normal EKG. Rate 66 bpm, NM 160 ms, QRS 76 ms, QTC 419 ms LABS Labs: 09/24/2015: Lipids: Cholesterol 126, triglycerides 131, HDL 37, LDL 63 Labs: 2016: CMP: Sodium 142, potassium 4.1, chloride 105, glucose 54, BUN 38, creatin ine 1.19, GFR 43. AST 12, ALT 11, alk phos 70, total bilirubin 0.4, albumin 3.8. A1c 7.9. A1c: 03/27/2017 :6.8 ( 148) Labs: 2017: Sodium 140, potassium 3.6, chloride 101, glucose 56, BUN 39, creatinine 0. 95, AST 16, ALT 9, alk phos 72, total bilirubin 0.3, GFR 56, albumin 3.7, A1c 6.4. CBC: WBC 14, hemoglobin 10.9, hematocrit 33.9, neutrophils 81.8, lymphocytes 9, urinalysis positive for elevated WBC, and moderate leuk esterase and 3+ bacteria, INR 1.3 ASSESSMENT & PLAN: She is here today for cardiac risk assessment for anticipated right knee surgery at the e of May. I had ordered an Echo, CMP, and lipid panel, and she also had a CBC A1c and urinalysis per formed on June 01. Her lipid panel performed June 01, 2017 showed lipids are well controlled ,CMP normal exce pt for low glucose of 56 and BUN of 39 with creatinine of 0.95 and GFR of 56, and A1c of 6.4 , and CBC shows elevated white blood cell count of 14 likely due to UTI,, hemoglobin of 10. 9, hematocrit of 33.9, with elevated neutrophils and low lymphocytes, and INR was 1.3 . Urinalysis showed urinary tract infection and she reports this has been treated with one- week course Nitrofurantoin which she is just finishing today, and getting a repeat urinalys is Her Echo performed 05/22/2017 shows a hyperdynamic EF of greater than 70 percent. LV is n ormal in size, mild diastolic dysfunction, RV normal in size and function, mild to moderate eccentric tricuspid regurgitation, and mild pulmonary hypertension, with no apparent pericar dial effusion, and normal size aortic root, ascending aorta, and aortic arch. Overall her echo has improved since 2014 , with improved EF ,now mild pulmonary hyperten yeni, resolution of previous LV hypertrophy ,but increased tricuspid regurgitation as previo usly mild I reviewed the results of her labs and Echo with her in detail, and told her she had a lo w cardiac risk for surgery , and also gave her a copy of her echo to take with her. She is otherwise stable today with heart rate and blood pressure well controlled, but rep orts she has ongoing low blood sugars which she has followed up with Dr. Crews about, and h as also lost 6 pounds since I saw her last. I will see her back in one year, as she will need serial echoes to evaluate her pulmonary hypertension and mild to moderate tricuspid regurgitation. She did not want me to order an Echo today to be done prior to seeing me back in one yea r, and prefers to have it done after she sees me back. 1. Mild diastolic dysfunction 2. Mild pulmonary hypertension (HCC) 3. Mild tricuspid regurgitation 4. Hypertension goal BP (blood pressure) < 140/80 5. Encounter for pre-operative cardiovascular clearance 6. Murmur, cardiac 7. Hyperlipidemia, unspecified hyperlipidemia type 8. History of precordial chest pain 9. Stage 3 chronic kidney disease 10. Type 2 diabetes mellitus without complication, with long-term current use of insulin (H CC) No orders of the defined types were placed in this encounter. The following portions of the patient's history [...] social history, past surgical history. Problem list. Cherie CoronadoAUDREY [facility] 06/15/2017in this encounter Plan of Treatment Not on fileas of this encounter Visit Diagnoses + + | Diagnosis | + + | Mild diastolic dysfunction - Primary | + + | Heart disease, unspecified | + + | Mild pulmonary hypertension (HCC) | + + | Other chronic pulmonary heart diseases | + + | Mild tricuspid regurgitation | + + | Diseases of tricuspid valve | + + | Hypertension goal BP (blood pressure) < 140/80 | + + | Unspecified essential hypertension | + + | Encounter for pre-operative cardiovascular clearance | + + | Pre-operative cardiovascular examination | + + | Murmur, cardiac | + + | Undiagnosed cardiac murmurs | + + | Hyperlipidemia, unspecified hyperlipidemia type | + + | History of precordial chest pain | + + | Personal history of other specified diseases | + + | Stage 3 chronic kidney disease | + + | Type 2 diabetes mellitus without complication, with long-term current use of insulin | | (HCC) | + +
[~2017-06-25 06:00] MED LIST: CELEBREX200 MG PO; FELODIPINE ER5 MG PO; LANTUS100 UNITS/ SUB-Q; LIPITOR10 MG PO; LISINOPRIL-HCT1 EACH PO; METOPROLOL SUC100 MG PO; NEURONTIN300 MG PO; NOVOLOG100 UNIT/2 SUB-Q
--- NOTE | 2017-06-25 07:14 | NUR ---
PATIENT CHECKED IN FOR SURGERY, RESTING IN BED, RATES CHRONIC RIGHT KNEE PAIN 8/10. CHG MOUTHWASH AND NASAL SWABS ARE DONE.
--- NOTE | 2017-06-25 09:10 | NUR ---
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
--- NOTE | 2017-06-25 11:56 | NUR ---
06/25/17 1156 Amelie Rodriguez 1137 PT ARRIVES IN PACU WITH O2 VIA OXYMASK AT 4L. BREATHING EVEN AND NON LABORED. OPA IN PLACE. PT AROUSES TO VOICE BUT QUICKLY BACK TO SLEEP. CBG 154. BILATERAL SCD'S AND MARY HOES IN PLACE. 1150 PT AROUSES TO VOICE, OPA REMOVED AT THIS TIME. P CONTINUES TO REST, SATS 98% ON 4L PER OXYMASK. 1151 PT REPORTS SLIGHT PAIN TO RIGHT KNEE. PT MOVING ALL EXTREMITIES. CMS INTACT. SPINAL LEVEL AT THE KNEE. SENSATION TO PRESSURE BELOW.
--- NOTE | 2017-06-25 13:35 | NUR ---
PT ARRIVED TO FLOOR FROM PACU VIA HOSPITAL BED. PT IS VERY DROWSY, WILL OPEN EYES AND RESPOND TO VERBAL STIMULI BUT FALLS BACK ASLEEP QUICKLY AND EASILY. PT DENIES PAIN OR NAUSEA AT THIS TIME, STATES SHE WANTS TO EAT SOMETHING. GOOD SENSATION AND MOVEMENT OF BLE, BUT PT REPORTS CHRONIC NUMBNESS OF LEFT LEG. RIGHT KNEE DRESSING CDI. SCD'S, TEDS, HEEL PROTECTORS, AND CRYO CUFF IN PLACE. PT ORIENTED TO SELF ONLY. PT LOOKS AROUND ROOM AND ASKS "WHAT IS THIS ROOM? I DON'T LIKE IT." PT REQUIRES FREQUENT REORIENTATION TO SITUTION AND PLACE. SATTING 99% ON 2LNC, HR 105, PULSE OX IN PLACE. IV INFUSING IN LEFT WRIST, SITE WITHOUT REDNESS OR INFLAMMATION. CALL LIGHT WITHIN REACH. BED ALARM ON.
--- NOTE | 2017-06-25 14:34 | NUR ---
PT HAD APPROX 100ML OF DARK ORANGE EMESIS. MEDICATED WITH ZOFRAN. PT STATES "I'M HUNGRY! I NEED SOMETHING TO EAT!" TAKING SIPS WATER.
--- NOTE | 2017-06-25 15:56 | NUR ---
PT TRIED TO EAT CLEAR LIQUIDS ON CLEAR LIQUID TRAY, HAD 300ML EMESIS. WEANED TO RA SATTING 97%. PT STILL VERY DROWSY BUT NOW ORIENTED TO LOCATION AND YEAR. CALL LIGHT WITHIN REACH.
--- NOTE | 2017-06-25 16:30 | NUR ---
PT ASSISTED TO BSC WITH P.T. AND THIS RN. HAD INCONTINENT VOID IN BED AND LARGE 500ML VOID IN COMMODE. PT ASSISTED BACK TO BED. PAINFUL WITH MOVEMENT BUT DENIES PAIN AT REST. FALLS ASLEEP EASILY. CRYOCUFF, TEDS, SCD'S IN PLACE. CALL LIGHT WITHIN REACH.
--- NOTE | 2017-06-25 18:36 | NUR ---
PATIENT RESTING IN BED WITH EYES CLOSED. RN IN ROOM. ICE IN CRYO. FRESH ICE WATER. CALL BUTTON IN REACH.
--- NOTE | 2017-06-25 18:39 | NUR ---
PT DESATTING TO 88% WHILE ASLEEP, BREATHING THROUGH MOUTH, PLACED ON 2L NC. SATS INCREASE TO 100% ON RA WHILE AWAKE. PT STILL VERY DROWSY BUT MENTATION CONTINUES TO CLEAR. DENIES PAIN. PT ATE MASHED POTATOES, JOLENE WELL SO FAR. STATES NAUSEA RESOLVED AT THIS TIME. CALL LIGHT WITHIN REACH.
--- NOTE | 2017-06-25 19:15 | NUR ---
BEDSIDE REPORT RECEIVED FROM CHEPE PERKINS. PT SLEEPING, AWAKENS TO RN TOUCH, AND BACK TO SLEEP SNORING. PT ON 2L OXYMASK AT THIS TIME, SPO2 100%. SCDS, MARY HOSE, HEEL PROTECTORS IN PLACE. DRESSING CDI WITH LOUIS WRAP, CRYO CUFF ON FILLED WITH ICE. IVF INFUSING WNL. BED ALARM IS ON PT KNOWN TO BE CONFUSED. CALL LIGHT IN REACH.
--- NOTE | 2017-06-25 21:40 | NUR ---
PT ASSESSMENT COMPLETE. PT DENIES ANY PAIN AT THIS TIME, CSM INTACT BLE WITH CHRONIC NUMBNESS NOTED IN LEFT LEG. LOUIS WRAP CDI TO RIGHT KNEE. CRYO CUFF REFILLED WITH ICE AND IN PLACE. PT DENIES NAUSEA, BOWEL TONES ACTIVE AT THIS TIME. LUNGS CLEAR, DIMINISHED THROUGHOUT ALL LOBES. HR REGULAR RHYTHM 72, SPO2 99% ON 1L OXYGEN BY OXYMASK. PT CONTINUES TO BE DROWSY, ORIENTED X 4 AT THIS TIME, SOME CONFUSION UPON AWAKENING REGARDING TIME OF DAY. SCHEDULED TYLENOL AND TORADOL ADMINISTERED FOR PAIN, CBG 387 AT THIS TIME. IVF INFUSING WNL. NEW BAG HUNG. DR. BENJAMIN VERIFIED AND VERBAL OKAY TO ADMINISTER HOME EYE DROPS. CALL LIGHT IN REACH, PT STATES DOES NOT NEED TO VOID AT THIS TIME, BED ALARM SET. SCDS, MARY RESTREPO ON.
--- NOTE | 2017-06-25 21:50 | NUR ---
NOTIFIED OF PTS CBG 387, ORDER TO CONTINUE W SS INSULIN ORDERED.
--- NOTE | 2017-06-25 22:00 | NUR ---
IN PT ROOM FOR ADMINISTRATION OF EYE DROPS. 2PA WITH FWW TO BSC FOR VOID. PT ABLE TO FOLLOW DIRECTIONS W WALKER USE, WEAKNESS NOTED. 450 ML VOID. ASSISTED BACK TO BED, SCDS, MARY HOSE, HEEL PROTECTORS, CRYO CUFF IN PLACE. PT HAS WATER, PERSONAL SUPPLIES IN REACH. TV REMOTE GIVEN TO PT REQUESTED. BED ALARM SET.
--- NOTE | 2017-06-26 00:58 | NUR ---
CHECKED ON PT, PT APPEARS TO BE SLEEPING, SPO2 100% ON 1L OXYGEN BY OXYMASK, MOUTH OPEN, SNORING. IVF INFUSING, LIGHTS OFF IN ROOM. SCDS, HEEL PROTECTORS, MARY HOSE ON. BED ALARM IN PLACE.
--- NOTE | 2017-06-26 02:50 | NUR ---
PT ASSESSMENT COMPLETE. PT IS ALERT AND ORIENTED X 4, DRESSING ON RIGHT KNEE CLEAN DRY AND INTACT [place] WRAP, CRYO CUFF WITH ICE TO RIGHT KNEE. SCDS, MARY HOSE ON. CSM INTACT BUE, BLE. BOWEL TONES ACTIVE X 4, PT DENIES NAUSEA. LUNGS CLEAR THROUGHOUT ALL LOBES. PT DENIES TOILETING NEEDS AT THIS TIME. SUGAR FREE PUDDING, APPLE SAUCE, ICE WATER GIVEN TO PT REQUESTED. IVF INFUSING WNL. CALL LIGHT IN REACH, BED ALARM ON. WILL CONTINUE TO MONITOR. PT ON ROOM AIR AT THIS TIME SPO2 99%.
--- NOTE | 2017-06-26 04:01 | NUR ---
CHECKED ON PT, PT AWAKE, SITTING UP IN BED WATCHING TV. SPO2 96% ON ROOM AIR. PT GIVEN GLUCERNA NUTRITION DRINK AT THIS TIME. CALL LIGHT IN REACH, SCDS, MARY HOSE, CRYO CUFF IN PLACE. IVF INFUSING. NO ADDL REQUESTS. BED ALARM SET.
--- NOTE | 2017-06-26 04:45 | NUR ---
PT ALERT AND ORIENTED X 4 THIS SHIFT, ON ROOM AIR. NO EMESIS THIS SHIFT. PAIN MANAGED WITH SCHEDULED TORADOL, TYLENOL. DRESSING C/D/I. CRYO CUFF ON RIGHT KNEE, SCDS, MARY HOSE, HEEL PROTECTORS ON. CONT. PULSE OX IN PLACE. IVF INFUSING WNL. 2PA W FWW TO BSC FOR VOIDS. BED ALARM IN PLACE PT DROWSY AND FORGETFUL AT START OF SHIFT.
--- NOTE | 2017-06-26 06:35 | NUR ---
SCHEDULED TYLENOL ADMINISTERED PT RATES PAIN 8/10 IN RIGHT KNEE. PT REFUSES PRN PAIN MEDICATIONS "I DON'T WANT ANYTHING THAT WILL MAKE ME SLEEPY". CRYO CUFF REFILLED WITH ICE AT THIS TIME. PT ASSISTED TO BSC WITH 2PA AND FWW FOR BM, VOID. CALL LIGHT GIVEN TO PT. PT ALERT THIS MORNING COMPARED TO START OF SHIFT.
--- NOTE | 2017-06-26 07:56 | NUR ---
BEDSIDE REPORT RECEIVED FROM ALLISON MO. WHITE BOARD UPDATED. STUDENT NURSE, BRITTANY, PRESENT FOR REPORT. PATIENT DROWSY. AWAKENS TO VOICE AND THEN FALLS BACK ASLEEP EASILY. CRYOCUFF IN PLACE ON RIGHT KNEE. SCDs ON. SALINE LOCKED NOW. WILL SEE HOW SHE TOLERATES BREAKFAST.
--- NOTE | 2017-06-26 08:04 | OR ---
[facility] [address] [place], [place] [address] Signed DATE OF OPERATION: 06/25/2017 SURGEON: Mundo Bull MD PREOPERATIVE DIAGNOSIS: Severe degenerative joint disease, right knee. POSTOPERATIVE DIAGNOSIS: Severe degenerative joint disease, right knee. PROCEDURE PERFORMED: Right total knee arthroplasty. GROMMET WORKER: MONIQUE Osborne. Maddie was present for the entire procedure, was critical for positioning, retraction, and wound closure. ANESTHESIA: Spinal. BLOOD LOSS: Minimal. TOURNIQUET TIME: 56 minutes. IMPLANT: [place] Triathlon size 3 with 11 mm insert and 32 patella. BRIEF HISTORY: Alfonso is an 81-year-old female with progressive worsening of her arthritis. We treated this nonoperatively for significant amount of time. Risks and benefits of operative treatment were discussed with her and she elected to proceed. DESCRIPTION OF PROCEDURE: Once consent was obtained and medical clearance was obtained, she was taken to the operating room. After adequate anesthesia, she was placed on operating room table. All downside pressure points were well padded. The right leg was placed on a hip bump and placed in well-padded proximal thigh tourniquet. The leg was then prepped and draped in a standard sterile fashion and the leg was prepped and draped in a standard sterile Electronically Signed By: MUNDO BULL MD 06/26/17 0804 PATIENT NAME: ALFONSO RIOS OPERATIVE REPORT DATE OF : 33 REPORT #: [id number] PHYSICIAN: MUNDO BULL MD PCP: SHAUN CREWS DO REPORT IS CONFIDENTIAL AND NOT TO BE RELEASED WITHOUT AUTHORIZATION [facility] [address] [place], [place] [address] Signed fashion. Standard anterior approach through curved incision was taken through skin and subcutaneous tissue. After exsanguinating the leg and inflating tourniquet to 250 mm, a median parapatellar arthrotomy was performed and the infrapatellar fat pad was excised. The MCL was elevated at a sleeve around the posterior medial corner. The knee was flexed. The anterior horns of menisci were transected as was the ACL. At this point, we attempted to use the navigation, however, the navigation computer would not start and registered the trackers. We then elected to go back to standard procedure. The distal femoral drill hole was placed and the intramedullary guide was positioned and the guide was set to take 9 mm off the distal femur. The cut was made with care taken to protect the surrounding soft tissues. The distal femur sized to a 3, which matched the other side. The AP cutting block was then pinned in line with epicondylar axis and the anterior, posterior, and chamfer cuts were made. All bone pieces were excised as were osteophytes. Attention was turned to proximal tibia. The menisci were removed and the cutting block was then pinned to remove 2 mm off the medial side and aligned with the anterior tibial spine. The cut was made again with care taken to protect the patellar tendon, the MCL. Posterior osteophytes and posterior release were performed. The flexion and extension gaps were sized found to be symmetric at 11 mm. The trials were then positioned, knee was taken through range of motion, and found to be stable. The patella was cut, sized, and drilled for a 32 patella. The distal femoral drill holes were made. The proximal tibia was finished using the keel punch. All bone surfaces were pulse lavaged and packed with dry Ray-Dimitry. Cement was mixed and reached proper consistency, displaced all implants on bone surfaces. The tibia was impacted in position first and all excess cement removed. The polyethylene was snapped into position. The femur was impacted. Again any remaining cement was removed. The leg was extended and nicely loaded. The patella was clamped and again the remaining cement was removed. The cement was allowed to harden. Once hardened sufficiently, the knee was flexed and the remaining cement was removed using osteotomes. The knee was pulse lavaged at intervals throughout the procedure. A total of 3 L antibiotic irrigation was used. The periarticular soft tissues were injected with 95 mL of ropivacaine, Toradol mixture. The arthrotomy was then closed using #2 Stratafix subcutaneous tissue with 0 Stratafix, and skin with ivis. Wound was dressed with Mepilex Ag dressing, ABD, and Azael wrap. The patient tolerated the procedure well. All sponge, needle, and instrument counts were correct. Mundo Bull MD BA/MODL /[id number] Electronically Signed By: MUNDO BULL MD 06/26/17 0804 PATIENT NAME: ALFONSO RIOS OPERATIVE REPORT DATE OF : 33 REPORT #: [id number] PHYSICIAN: MUNDO BULL MD PCP: SHAUN CREWS DO REPORT IS CONFIDENTIAL AND NOT TO BE RELEASED WITHOUT AUTHORIZATION [address] [address] Signed Copies: ~ Electronically Signed By: MUNDO BULL MD 06/26/17 0804 PATIENT NAME: BLANCAALFONSOMoe HOLCOMB OPERATIVE REPORT DATE OF : 33 REPORT #: [id number] PHYSICIAN: MUNDO BULL MD PCP: SHAUN CREWS DO REPORT IS CONFIDENTIAL AND NOT TO BE RELEASED WITHOUT AUTHORIZATION
--- NOTE | 2017-06-26 08:20 | NUR ---
OT IN ROOM WITH PATIENT AT THIS TIME. ICE IN CRYO.
--- NOTE | 2017-06-26 09:00 | NUR ---
MED REC COMPLETE WITH DR CREWS OFFICE RECORDS AND LEV REFILL HISTORY.
[2017-06-26] MEDS ORDERED: PREDNISOLONE ACE5 ML OPTH (09:59)
--- NOTE | 2017-06-26 10:05 | NUR ---
PATIENT REPORTS 2-3/10 PAIN IN RIGHT KNEE. SCDs IN PLACE. +2 PEDAL PULSES BILAT. CLEAR LUNG SOUNDS. REGULAR EVEN HEART BEAT. ACTIVE BOWEL TONES. PATIENT REPORTS FEELING SLEEPY AND WOULD LIKE TO STAY IN BED FOR NOW. CHAIR SET UP FOR PATIENT TO GET INTO WHEN PHYSICAL THERAPIST WORKS WITH HER. WORKED ON INCENTIVE SPIROMETER X3 AND ABLE TO REACH 1500. KEPT BEAD BETWEEN ARROWS WELL.
--- NOTE | 2017-06-26 10:50 | NUR ---
PATIENT IN ROOM WORKING WITH PT. NO NEEDS AT THIS TIME.
--- NOTE | 2017-06-26 13:13 | NUR ---
STUDENT RN STATES THAT THE PATIENT ATE LUNCH AND IS UP IN THE CHAIR WITH CRYO CUFF ON. NO OTHER NEEDS AT THIS TIME.
--- NOTE | 2017-06-26 15:28 | NUR ---
PT SITTING UP IN RECLINER. C/O HAVING LOOSE STOOLS. WILL HOLD FURTHER STOOL SOFTENERS.
--- NOTE | 2017-06-26 17:28 | NUR ---
FAXED CHART NOTES TO [facility] INCLUDING FACESHEET, H AND P, OP NOTE, PT EVAL AND NOTES, PROG NOTES, AND IMAGING. RECIEVED FAX CONFIRMATION.
--- NOTE | 2017-06-26 17:46 | NUR ---
PATIENT UP WITH PHYSICAL THERAPY X2 TODAY. DIARRHEA D/T STOOL SOFTENERS. HOLD LAXATIVES. SALINE LOCKED. TOLERATING ADA DIET. CRYOCUFF. TEDS. SCDs. ACCU CHECKS. OXYCODONE X1 TODAY.
--- NOTE | 2017-06-26 19:25 | NUR ---
BEDSIDE REPORT RECEIVED FROM CHEPE CUEVAS. PT APPEARS TO BE SLEEPING, SITTING UP IN CHAIR, EYES CLOSED, BREATHING NON-LABORED, ON ROOM AIR. IV SALINE LOCKED. CRYO CUFF ON RIGHT KNEE. PERSONAL SUPPLIES AND CALL LIGHT IN REACH, WILL CONTINUE TO MONITOR.
--- NOTE | 2017-06-26 20:40 | NUR ---
PT ASSESSMENT COMPLETE. DRESSING C/D/I RIGHT KNEE, PT C/O 6/10 PAIN RIGHT KNEE. PRN OXYCODONE 5 MG ADMINISTERED, SCHEDULED TORADOL. STRONG PEDAL PULSES BILATERALLY, CAP REFILL <3 BILATERALLY, SENSATION INTACT RIGHT KNEE. CHRONIC NUMBNESS LEFT LEG. LUNGS CLEAR THROUGHOUT ALL LOBES, BOWEL TONES ACTIVE, ABDOMEN SOFT, PT REFUSES PRN MILK OF MAGNESIA. CRYO CUFF REFILLED AT THIS TIME. 2PA TO RESTROOM FOR BM, INCONTINENT OF STOOL. CHARLES SHEEHAN IN PT ROOM FOR SAFETY.
--- NOTE | 2017-06-26 22:19 | NUR ---
PT SLEEPING, AWAKENS TO VOICE, PT RATES PAIN 5/10 IN RIGHT KNEE. SCHEDULED TYLENOL ADMINISTERED. CRYO CUFF, SCDS, MARY HOSE, HEEL PROTECTORS IN PLACE. PT HAS NO REQUESTS AT THIS TIME.
--- NOTE | 2017-06-27 00:40 | NUR ---
IN PT ROOM TO CHECK ON PT, PT AWAKE, LYING IN BED, STATES NEED FOR BM. 2PA WITH CHARLES SHEEHAN AND FWW TO BSC FOR BM. SMALL INCONTINENCE OF STOOL. PT RATES PAIN 5/10 IN RIGHT KNEE, GRIMACING, STATING IT HURTS W AMBULATION. PRN OXYCODONE 5MG ADMINISTERED FOR PAIN. CHARLES SHEEHAN REMAINS IN ROOM WITH PT FOR SAFETY.
--- NOTE | 2017-06-27 03:16 | NUR ---
IN PT ROOM FOR SCHEDULED TORADOL ADMINISTRATION, IV INFILTRATED, NEW IV STARTED RIGHT FOREARM BY RN SANTIAGO, PT JOLENE WELL. SALINE LOCKED. DRESSING CDI RIGHT KNEE, CRYO CUFF REFILLED AND ON KNEE. PT RATES PAIN 5/10. SCDS, HEEL PROTECTORS ON. CSM INTACT BLE, BUE. LUNGS CLEAR THROUGHOUT. PT DENIES TOILETING NEEDS, WATCHING TV AT THIS TIME, CALL LIGHT IN REACH.
--- NOTE | 2017-06-27 04:16 | NUR ---
CHECKED ON PT, PT APPEARS TO BE SLEEPING, EYES CLOSED, BREATHING VISIBLE, EQUAL CHEST RISE BILATERALLY, SCDS ON, MARY HOSE, HEEL PROTECTORS IN PLACE.
--- NOTE | 2017-06-27 05:55 | NUR ---
MEPILEX C/D/I THROUGHOUT SHIFT, CSM INTACT. PAIN CONTROLLED W SCHEDULED TORADOL, TYLENOL, PRN OXYCODONE X 2 THIS SHIFT. THREE BMS THIS SHIFT. NEW IV RIGHT FOREARM SALINE LOCKED. 2PA TO RESTROOM FOR VOIDS, ATTENDS IN PLACE, INCONTINENT URINE AND STOOL. SCDS, CRYO CUFF, HEEL PROTECTORS IN PLACE.
--- NOTE | 2017-06-27 06:31 | NUR ---
2PA FROM BSC TO RESTROOM FOR ORAL CARE AND BACK TO BED. PT RATES PAIN 6/10 IN RIGHT KNEE. PRN OXYCODONE 5MG ADMINISTERED WITH SCHEDULED TYLENOL. CRYO CUFF TO RIGHT KNEE. MARY HOSMaggi AND SCDS IN PLACE. CALL LIGHT IN REACH. PT HAS PERSONAL SUPPLIES IN REACH. CHARLES SHEEHAN IN ROOM FOR VITALS.
--- NOTE | 2017-06-27 07:46 | NUR ---
patient resting in bed. Patient states she washed hands and face with wash cloth already and has performed oral care. Call light in reach. No other needs at this time.
--- NOTE | 2017-06-27 09:55 | NUR ---
PHYSICAL THERAPY IN ROOM TO WORK WITH PATIENT. PATIENT GOING TO ATTEMPT TO WALK IN [place] WITH PT.
--- NOTE | 2017-06-27 10:00 | NUR ---
PATIENT WAS ABLE TO DO THE STAIRS WITH PT. ASSISTED BACK TO BR DUE TO PATIENT HAVING LOOSE STOOL. AFTER BR PATIENT WAS ASSISTED TO THE CHAIR. LEGS ELEVATED. KRYO IN PLACE.
--- NOTE | 2017-06-27 10:42 | NUR ---
PATIENT SITTING UP IN BEDSIDE RECLINER, LEGS ELEVATED. CRYO REFILLED, APPLIED TO PATIENT. LINENS CHANGED AND READJUSTED NEEDED. CALL LIGHT IN REACH. NO OTHER NEEDS AT THIS TIME.
--- NOTE | 2017-06-27 11:01 | NUR ---
RECIEVED CALL FROM LASHAWN AT [facility] AND HE STATES THEY WILL ACCEPT PT.
--- NOTE | 2017-06-27 11:03 | NUR ---
PT REQUESTED TO HAVE FARHAN FROM [facility] TO DRIVE HER TO [place] TOMORROW. I CALLED THEM AND GAVE THE INFORMATION TO THEM AND THEY SAID THEY SHOULD BE ABLE TO MAKE IT WORK.
--- NOTE | 2017-06-27 11:21 | NUR ---
patient sleeping in chair. blood sugar taken this afternoon for a blood sugar of 155.
--- NOTE | 2017-06-27 12:11 | NUR ---
patient resting in bedside recliner, CRYO on, call light in reach, no other needs at this time.
--- NOTE | 2017-06-27 13:00 | NUR ---
PATIENT TOLERATED [address] BENJAMIN ROUNDED IN ROOM. DR. BENJAMIN ORDERED AT HOME BLOOD PRESSURE MEDICATION. NO OTHER ORDERS AT THIS TIME.
--- NOTE | 2017-06-27 14:04 | NUR ---
PATIENT RESTING IN BEDSIDE RECLINER AFTER PHYSICAL THERAPY. CRYO CUFF ON. CALL LIGHT IN REACH. RN AND STATISTICS PROFESSOR IN ROOM. NO OTHER NEEDS AT THIS TIME.
--- NOTE | 2017-06-27 14:53 | NUR ---
PATIENT WOKE FROM RESTING IN CHAIR. ASSISTED TO BR. PATIENT HAD ANOTHER BM AND VOIDED. TOLERATING AMBULATING WITH ONE ASSIST AND WALKER. PLAN TO WORK WITH PT AT 1500.
--- NOTE | 2017-06-27 15:04 | NUR ---
CHW While doing daily discharge rounding, patient expressed that she needed her diabetic supplies refilled and asked if Dr. Martinez could be contacted to make sure she received the request from the patient's insurance company. Contacted Dr. Martinez's office with refill request. Spoke to Tong who took the information and will make sure Dr. Martinez will get the refill request.
--- NOTE | 2017-06-27 15:13 | NUR ---
PATIENT ASSISTED TO THE EDGE OF BED IN ANTICIPATION TO WORK WITH PT. SET UP TO BE READY FOR JUAN ANTONIO. PATIENT CALLED DAUGHTER TO UP ON PLAN OF CARE/ TRANSPORT FOR TOMORROW.
--- NOTE | 2017-06-27 15:30 | NUR ---
PATIENT WORKING WITH PT
--- NOTE | 2017-06-27 15:33 | NUR ---
recieved a CALL BACK FROM [facility] STATING THAT EITHER SHE OR I NEED TO CALL THE MEDICAID TRANSPORT [phone]. CALLED AND LEFT MULTIPLE MESSAGES FOR THEM TO CALL BACK.
--- NOTE | 2017-06-27 15:49 | NUR ---
PATIENT UP WORKING WITH PHYSICAL THERAPY. NO OTHER NEEDS AT THIS TIME.
--- NOTE | 2017-06-27 16:31 | NUR ---
PATIENT PLAN TO DISHCARGE TOMORROW TO [facility] IN [place]. PT WAS ABLE TO DO THE STAIRS WITH PT TODAY. DOING WELL WITH AMBULATING IN [place]. PATIENT HAS BEEN GIVEN 1 OXY FOR PAIN BEFORE THERAPY DUE TO PATIENT BEING DROWSY AT TIMES. PATIENT HAS HAD SEVERAL LOOSE STOOLS. HOLDING STOOL SOFTENERS AT THIS TIME. PTS BLOOD SUGARS HAVE BEEN WELL CONTROLLED. NEEDING SS COVERAGE THIS AFTERNOON. DISCHARGE PLANNING ASSISTING WITH TRANSPORT NEEDS TO FACILITY. R KNEE DRESSING IS INTACT. [facility]. TEDS, SCDS, AND CRYO ARE IN PLACE.
--- NOTE | 2017-06-27 18:38 | NUR ---
PATIENT SITTING UP IN BED EATING DINNER. CALL LIGHT IN REACH. CRYO CUFF FILLED, SCD'S ON, FRESH ICE WATER AT BEDSIDE TABLE. NO OTHER NEEDS AT THIS TIME
--- NOTE | 2017-06-27 19:20 | NUR ---
BEDSIDE REPORT RECEIVED FROM CHEPE PRINCE. PT APPEARS TO BE SLEEPING, EYES CLOSED BREATHING NON-LABORED, SCDS, HEEL PROTECTORS, MARY HOSE ON. CRYO CUFF FILLED WITH ICE. IV SALINE LOCKED. CALL LIGHT IN REACH.
--- NOTE | 2017-06-27 21:46 | NUR ---
PT ASSESSMENT COMPLETE. PT RATES PAIN 10/10 IN RIGHT KNEE, PRN OXYCODONE ADMINSITERED AT THIS TIME, ICE IN CRYO CUFF ON RIGHT KNEE. DRESSING C/D/I. CSM INTACT BLE, BUE W CHRONIC NUMBNESS LLE. BOWEL TONES ACTIVE X 4, ABDOMEN SOFT. PT CONTINUES TO BE UPSET RE DIARRHEA EPISODES, MILK OF MAG HELD AT THIS TIME, PT REFUSING. SCDS, MARY HOSE ON. PT DEMONSTRATES INCENTIVE SPIROMETER USE X 5 WITH 1250 ML BEST EFFORT. LUNGS SOUND CLEAR THROUGHOUT ALL LOBES. CALL LIGHT IN REACH, LIGHTS OFF IN ROOM. PT GIVEN GATORADE REQUESTED.
--- NOTE | 2017-06-28 01:40 | NUR ---
CALL LIGHT ANSWERED, PT C/O 11/05 PAIN IN RIGHT KNEE, PRN OXYCODONE 5 MG ADMINISTERED FOR PAIN. DRESSING CDI, CRYO CUFF ON RIGHT KNEE WITH ICE, HEEL PROTECTORS, SCDS, MARY HOSE ON. CSM INTACT. LUNGS CLEAR THROUGHOUT ALL LOBES, HR REGULAR, BOWEL TONES ACTIVE X 4. PT GIVEN SIPS OF WATER. CALL LIGHT IN REACH, LIGHTS OFF IN ROOM.
--- NOTE | 2017-06-28 03:59 | NUR ---
CHECKED ON PT, PT APPEARS TO BE SLEEPING, EYES CLOSED, BREATHING NON-LABORED, SCDS, MARY HOSE, HEEL PROTECTORS ON.
--- NOTE | 2017-06-28 05:17 | NUR ---
PT HAD TWO BMS THIS SHIFT, CONTINUES TO C/O DIARRHEA. OXYCODONE 5MG FOR PAIN CONTROL AND SCHEDULED TYLENOL, CRYO CUFF TO RIGHT KNEE, SCDS, MARY HOSE, HEEL PROTECTORS ON THROUGHOUT SHIFT. DRESSING C/D/I. PT USING CALL LIGHT APPROPRIATELY, 2PA FWW TO RESTROOM.
--- NOTE | 2017-06-28 06:17 | NUR ---
PT LYING IN BED, RATES PAIN 8/10 IN RIGHT KNEE AFTER AMBULATING FROM RESTROOM BACK TO BED, CRYO CUFF ON RIGHT KNEE REFILLED WITH ICE. SCDS, MARY HOSE, HEEL PROTECTORS ON. PRN OXYCODONE 5MG ADMINISTERED AT THIS TIME, SCHEDULED TYLENOL. PT HAS PERSONAL SUPPLIES AND CALL LIGHT IN REACH.
--- NOTE | 2017-06-28 06:19 | NUR ---
HELPED PT TO THE BATHROOM AND BACK TO BED WITH HER FWW. HOOKED UP SCDS AND CRYO. VITALS AND I&OS DONE AND CHARTED. GARBAGES EMPTIED. PT NEEDS NOTHING ELSE AT THIS TIME.
--- NOTE | 2017-06-28 07:30 | NUR ---
MD AT BEDSIDE. MD REMOVES DRESSING AND UPDATES PT ON PLAN OF CARE. MD STATES TO APPLY NEW DRESSING AFTER A FEW HOURS, BEFOR DISCHARGE.
--- NOTE | 2017-06-28 07:34 | NUR ---
CALLED THE TRAN[facility]ORTATION [facility] AND TALKED WITH SAMANTHA, ARRANGEMENTS WERE STARTED FOR PT TO BE TRANSPORTED TO [facility] AT APPROX 11 AM. AWAITING A CONFIRMATION PHONE CALL BACK.
[2017-06-28] MEDS ORDERED: OXYCODONE HCL5 MG PO (07:35)
--- NOTE | 2017-06-28 08:01 | NUR ---
FAXED ORDERS, PASRR, AND RX TO [facility], RECIEVED FAX CONFIRMATION OF THIS.
--- NOTE | 2017-06-28 08:26 | NUR ---
MORNING ASSESSMENT AND MEDICATIONS DUE. THIS RN TO BEDSIDE. MEDICATIONS GIVEN. WOUND REMAINS OPEN TO AIR. PROPED WITH PILLOW TO KEEP LEG STRAIGHT. PT EATING BREAKFAST. REPORTS 09/04 PAIN STATING "IT'S FINE RIGHT NOW." SCDS, AND MARY HOSE IN PLACE. PT STATES SHE HAS NO REQUESTS OR COMPALINTS AT THIS TIME. ASSESSMENT DONE. MEDICAITONS GIVEN (SEE MAR). BED RAILS UP. BED ALARM ON. CALL LIGHT WITHIN REACH.
--- NOTE | 2017-06-28 09:00 | NUR ---
RECIEVED VERIFICATION FROM TRANSPORT THAT THEY WILL BE HERE AT 11.
[2017-06-28] MEDS ORDERED: DULCOLAX10 MG PR (10:15)
[2017-06-28] MEDS ORDERED: MILK OF MA400 MG/5 M PO (10:15)
--- NOTE | 2017-06-28 10:15 | NUR ---
IV DC'D FROM THE RIGHT ARM TIP INTACT. NEW DRESSING APPLIED TO THE KNEE MEPILEX AND OPSITE. PATIENT BELONGINGS PACKED UP AND PATIENT DRESSED.
[2017-06-28] MEDS ORDERED: FLEET ENEMA133 ML PR (10:16)
[2017-06-28] MEDS ORDERED: TYLENOL EXTRA500 MG PO (10:17)
[2017-06-28] MEDS ORDERED: TEST N'GO1 EACH MISC ×2 (10:18→10:31)
[2017-06-28] MEDS ORDERED: NOVOLOG100 UNIT/2 SUB-Q (10:24)
[2017-06-28] MEDS ORDERED: PROTONIX40 MG PO (10:28)
[2017-06-28] MEDS ORDERED: XARELTO10 MG PO (10:30)
--- NOTE | 2017-06-28 10:44 | NUR ---
HELPED PATIENT GET DRESSED TOOK OUT IV. HELPED HER PACK UP HER STUFF. RIGHT NOW THEY ARE GOING OVER HER MEDS. BEFORE SHE DISCHARGES. SHE IS UP IN HER CHAIR.
--- NOTE | 2017-07-01 17:12 | DS ---
[facility] [address] [place] [address] Signed ADMISSION DATE: 06/25/2017 DISCHARGE DATE: 06/28/2017 ADMISSION DIAGNOSIS: Degenerative joint disease, right knee. DISCHARGE DIAGNOSIS: Degenerative joint disease, right knee. PROCEDURE PERFORMED: Right total knee arthroplasty. BRIEF HISTORY: Alfonso is an 81-year-old female with severe pain in her knee. She had undergone nonoperative treatment without significant improvement. Risks and benefits of operative treatment were discussed with her and she elected to proceed. DESCRIPTION OF PROCEDURE: Once consent was obtained, she was taken to the operating room. After adequate anesthesia, she underwent the above-named procedure. She tolerated this well and was taken to the recovery room and subsequently to the orthopedic floor. She was placed on oral pain medication of oxycodone and gabapentin and IV Toradol. She did well postoperatively. She did have a little bit of diarrhea at the end of her stay. She was able to ambulate with physical therapy. However, she had poor safety control and was not able to do the stairs because she lives alone and has no family to take care of her. We elected to proceed with sending her to a halfway facility. She agrees to this. She will follow up with me in 10 days as previously scheduled. Mundo Bull MD BA/EDILSONL /[id number] Copies: Electronically Signed By: MUNDO BULL MD 07/01/17 1712 PATIENT NAME: ALFONSO RIOS DISCHARGE SUMMARY DATE OF : 34 REPORT #: [id number] PHYSICIAN: MUNDO BULL MD PCP: SHAUN CREWS DO REPORT IS CONFIDENTIAL AND NOT TO BE RELEASED WITHOUT AUTHORIZATION [address] [address] Signed ~ Electronically Signed By: MUNDO BULL MD 07/01/17 1712 PATIENT NAME: ALFONSO RIOS DISCHARGE SUMMARY DATE OF : 34 REPORT #: [id number] PHYSICIAN: MUNDO BULL MD PCP: SHAUN CREWS DO REPORT IS CONFIDENTIAL AND NOT TO BE RELEASED WITHOUT AUTHORIZATION
== END 2017-06-28 10:55 | disposition home or self-care (01) | DRG 470 ==
LOC: MS 06:00 → DS 06:00 → MS 09:00 → EDSTATUS 09:00 → DS 09:00 → MS 11:35 → DS 13:00 → MS 06-28 10:55
PROVIDERS: ADMIT Specialist
PROC: 3E0T3BZ Introduction of Anesthetic Agent into Peripheral Nerves and Plexi, Percutaneous Approach (ICD-10-PCS; 2017-06-25)
PROC: 3E0T33Z Introduction of Anti-inflammatory into Peripheral Nerves and Plexi, Percutaneous Approach (ICD-10-PCS; 2017-06-25)
PROC: 0SRC0J9 Replacement of Right Knee Joint with Synthetic Substitute, Cemented, Open Approach (ICD-10-PCS; principal; 2017-06-25 09:00)
DX: M17.11 Unilateral primary osteoarthritis, right knee (principal); I13.0 Hypertensive heart and chronic kidney disease with heart failure and stage 1 through stage 4 chronic kidney disease, or unspecified chronic kidney disease; I50.30 Unspecified diastolic (congestive) heart failure; G89.18 Other acute postprocedural pain; E11.22 Type 2 diabetes mellitus with diabetic chronic kidney disease; N18.3 Chronic kidney disease, stage 3 (moderate); Z79.4 Long term (current) use of insulin; E78.5 Hyperlipidemia, unspecified
CPT/HCPCS: 01402; 36415; 64447; 64450; 73560; 76942; 80048; 85025; 97110; 97116; 97161; 97165; 97530; 97535; C1713; C1776; G8987; G8988; J0690; J1100; J1885; J2274; J2310; J2405; J2704; J2795; J3010; J7120

== ENCOUNTER 2017-09-30 11:46 | Emergency (ER) | payer MEDICARE, OTHER ==
[~2017-09-30] VITALS: Ht 154.9 cm; Wt 74.8 kg
[~2017-09-30 11:46] MED LIST changes: +DULCOLAX10 MG PR; +FLEET ENEMA133 ML PR; +MILK OF MA400 MG/5 M PO; +OXYCODONE HCL5 MG PO; +PREDNISOLONE ACE5 ML OPTH; +PROTONIX40 MG PO; +TEST N'GO1 EACH MISC; +TYLENOL EXTRA500 MG PO; +XARELTO10 MG PO
== END 2017-09-30 14:00 | disposition home or self-care (01) ==
LOC: ED 11:46
DX: L76.82 Other postprocedural complications of skin and subcutaneous tissue (principal); E11.9 Type 2 diabetes mellitus without complications; I10 Essential (primary) hypertension; Z88.7 Allergy status to serum and vaccine; Z79.4 Long term (current) use of insulin; Z79.899 Other long term (current) drug therapy
CPT/HCPCS: 99282

== ENCOUNTER 2017-11-02 08:45 | Day surgery (SDC) | payer MEDICARE, OTHER ==
[~2017-11-02] VITALS: Ht 154.9 cm; Wt 70.3 kg
--- NOTE | 2017-11-02 11:38 | NUR ---
11/02/17 1138 Renée Montano 1129 PT ARRIVED WITH ORAL AIRWAY IN PLACE. RESP EVEN AND UNLABROED ON 8L VIA MASK. PT NONAROUSABLE.
--- NOTE | 2017-11-02 13:05 | NUR ---
PT WAKES UP AND USES CALL LIGHT TO REQUEST SOMETHING TO EAT. PT IS OFFERED ITEMS FROM DS UNIT AND STATES SHE WANTS "FOOD!" PT IS OFFERED SANDWHICH FROM [employer] AND PT STATES "I HATE SANDWHICHES." PT SETTLES TO HAVE CHICKEN BREAST, MASHED POTATOES AND STEAMED VEGETABLES. DIETARY NOTIFIED.
--- NOTE | 2017-11-02 13:44 | NUR ---
1220: PATIENT BACK IN DAY SURGERY ROOM FROM PACU. PATIENT DROWSY, BUT EASILY AWAKENS TO VOICE. THEN FALLS BACK TO SLEEP QUICKLY. VS CHECKED. LEFT BAPTISM SURGICAL SITE WNL. ICE PACK TO LEFT BAPTISM. IV SITE WNL. SCDs ON. CALL LIGHT WITHIN REACH.
--- NOTE | 2017-11-02 15:36 | NUR ---
1425: PATIENT TOLERATED LUNCH. PATIENT ASSISTED TO GET DRESSED. PATIENT ASSISTED TO BATHROOM WITH PT'S PERSONAL WHEELED WALKER. GAIT STEADY. VOID WITHOUT DIFFICULTY. GAIT STEADY BACK TO ROOM. 1450: IV DC'D WNL. TIP INTACT. DRESSING APPLIED. DISCHARGE INSTRUCTIONS GIVEN TO PATIENT. ATTEMPTING TO CONTACT [facility] FOR PATIENT'S RIDE HOME. 1515: [facility] CONTACTED AFTER MANY ATTEMPTS. PATIENT'S RIDE WILL BE HERE BETWEEN 1545 AND 1600. PATIENT INFORMED. CALL LIGHT WITHIN REACH.
--- NOTE | 2017-11-03 08:00 | OR ---
[facility] [address] [place], [place] [address] Signed DATE OF OPERATION: 11/02/2017 SURGEON: Nickolas Zaman MD PREOPERATIVE DIAGNOSES: 1. Left mandaeism subcutaneous mass (1.5 x 2.5 cm). 2. Recent history of B-cell lymphoma. POSTOPERATIVE DIAGNOSES: 1. Left mandaeism subcutaneous mass (1.5 x 2.5 cm). 2. Recent history of B-cell lymphoma. PROCEDURE PERFORMED: Excision, left mandaeism subcutaneous mass. ESTIMATED BLOOD LOSS: None. 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 She came in early September for a right axillary lymph node biopsy, which turned out to be a B-cell lymphoma. She told me today she is not going to do traditional IV chemotherapy, but received a shot once a week for 8 weeks. In the meantime, she has a 1.5 x 2.5 cm subcutaneous discoid lesion on her left mandaeism. She said it is bothersome and has been increasing in size over the last year. She is worried that it could be cancer. I explained to Alfonso that it is possible that it could also be a simple cyst. She wanted me to excise it. It was a bit much to do in the office, so we brought over here to the hospital to do under appropriate lighting and monitoring. I explained to Alfonso the incision required to remove that lesion. There is risk of surgery including, but not limited to bleeding, infection, scarring, change in contour of the skin as well as possible need for additional surgery and/or treatments. She had expressed understanding and wish to proceed. PROCEDURE NOTE: I met with Alfonso in our preop area. It is quite easy for us to identify the lesion, we marked that appropriately. She was then taken in the operating room and placed in the supine position under general LMA anesthesia. Her head was then rotated to the right. She was given preoperative antibiotics along with subcutaneous heparin. SCDs were utilized. She was then prepped and draped in the usual sterile fashion. We utilized just a linear incision over the lesion and went down and around the lesion with the help Electronically Signed By: NICKOLAS ZAMAN MD 11/03/17 0800 PATIENT NAME: ALFONSO RIOS OPERATIVE REPORT DATE OF : 34 REPORT #: [id number] PHYSICIAN: NICKOLAS ZAMAN MD PCP: CHRIST CREWS DO REPORT IS CONFIDENTIAL AND NOT TO BE RELEASED WITHOUT AUTHORIZATION [facility] [address] [place], [place] [address] Signed of the cautery. It did not have a classic appearance of the cyst and it could very well be a lymph node. It traveled a little further than we had anticipated, but we were able to reach all of it with our cautery. We did have 2 mm blood vessel inferiorly and we placed two small clips on the blood vessel for hemostasis. After this, local anesthetic was injected in the wound. The wound was irrigated and suctioned out until clear. The dermis was reapproximated with interrupted 3-0 subcuticular Monocryl sutures. The skin edges were reapproximated with a running 6-0 fast absorbing plain gut suture. The wound was than left open to air. Alfonso was weaned from anesthesia, extubated in the OR, and taken to recovery room in stable condition. Nickolas Zaman MD ALB/MODL /[id number] cc: MD Christ Segura DO Andrew L Bower, MD Copies: ART GORE MD, ARIAN DO BOWER, ANDREW L MD ~ Electronically Signed By: NICKOLAS ZAMAN MD 11/03/17 0800 PATIENT NAME: ALFONSO RIOS OPERATIVE REPORT DATE OF : 34 REPORT #: [id number] PHYSICIAN: NICKOLAS ZAMAN MD PCP: CHRIST CREWS DO REPORT IS CONFIDENTIAL AND NOT TO BE RELEASED WITHOUT AUTHORIZATION
== END 2017-11-02 15:55 | disposition home or self-care (01) ==
LOC: DS 08:45
PROVIDERS: Colon & Rectal Surgery
PROC: 0JB10ZZ Excision of Face Subcutaneous Tissue and Fascia, Open Approach (ICD-10-PCS; principal; 2017-11-02 10:45)
DX: C85.11 Unspecified B-cell lymphoma, lymph nodes of head, face, and neck (principal); C85.14 Unspecified B-cell lymphoma, lymph nodes of axilla and upper limb; I10 Essential (primary) hypertension; I12.9 Hypertensive chronic kidney disease with stage 1 through stage 4 chronic kidney disease, or unspecified chronic kidney disease; E11.22 Type 2 diabetes mellitus with diabetic chronic kidney disease; N18.3 Chronic kidney disease, stage 3 (moderate); E78.5 Hyperlipidemia, unspecified; E55.9 Vitamin D deficiency, unspecified; M19.90 Unspecified osteoarthritis, unspecified site; E11.42 Type 2 diabetes mellitus with diabetic polyneuropathy; Z66 Do not resuscitate; Z88.7 Allergy status to serum and vaccine; Z79.4 Long term (current) use of insulin; Z79.899 Other long term (current) drug therapy
CPT/HCPCS: 88184; 88185; 88305; J0690; J1100; J1644; J1885; J2250; J2405; J2704; J3010; J7120

== ENCOUNTER 2021-09-21 08:56 | Inpatient (IN) | payer MEDICARE, OTHER ==
[~2021-09-21] VITALS: Ht 154.9 cm; Wt 76.0 kg
[~2021-09-21 08:56] MED LIST changes: +ALLOPURINOL300 MG PO; +CLOTRIMAZOLE TOP; +KEFLEX500 MG PO; +NORCO 5-325 TA1 EACH PO; +NYSTATIN1 EAC2 MISC; +RITUXAN10 MG/1 ML IV; +VENTOLIN HFA18 GM
[2021-09-21] MEDS ORDERED: VITAMIN D31250 MC1 PO (14:08)
[2021-09-21] MEDS ORDERED: LANTUS SOL100 UNIT/1 SUB-Q (14:09)
[2021-09-21] MEDS ORDERED: METOPROLOL SUC200 MG PO (14:10)
[2021-09-21] MEDS ORDERED: NOVOLOG FL100 UNIT/1 SUB-Q (14:19)
--- NOTE | 2021-09-22 08:56 | EKG ---
[facility] [address] [facility] [place], [place] [address] Signed Normal sinus rhythm Normal ECG When compared with ECG of 19-SEP-2017 13:11, No significant change was found Confirmed by KELLEN CALL MD ([id number]) on 09/22/2021 8:56:12 AM Electronically Signed By: KELLEN CALL MD 09/22/21 0856 PATIENT NAME: ALFONSO RIOS Electrocardiogram DATE OF : 34 PHYSICIAN: KELLEN CALL MD REPORT #: [id number] REPORT IS CONFIDENTIAL AND NOT TO BE RELEASED WITHOUT AUTHORIZATION
--- NOTE | 2021-09-24 18:21 | EKG ---
[facility] [address] [facility] [place], [place] [address] Signed Normal sinus rhythm Low voltage QRS Borderline ECG When compared with ECG of 21-SEP-2021 09:10, No significant change was found Confirmed by KELLEN CALL MD ([id number]) on 09/24/2021 6:21:14 PM Electronically Signed By: KELLEN CALL MD 09/24/211820 PATIENT NAME: BLANCAALFONSOMoe HOLCOMB Electrocardiogram DATE OF : 34 PHYSICIAN: KELLEN CALL MD REPORT #: [id number] REPORT IS CONFIDENTIAL AND NOT TO BE RELEASED WITHOUT AUTHORIZATION
--- NOTE | 2021-09-25 17:23 | CONS ---
[facility] [address] [place], [place] [address] Signed DATE OF CONSULTATION: 09/23/2021 REQUESTING PHYSICIAN: Sol Martinez M.D. PROBLEM: Anemia, recent rectal bleeding, nausea and inability to tolerate oral intake. HISTORY OF PRESENT ILLNESS: This 86-year-old woman is known to have history of lymphoma, having undergone chemotherapy treatment for this. Indeed, she has a right subclavian port device placed by Dr. Jose C Majano in the past. She was admitted to the hospital on September 21 (two days ago) with complaints of nausea and episodic rectal bleeding including bright and dark blood. She was directly admitted through the emergency room for further evaluation and management. The patient has been treated in the Oncology Clinic locally for B-cell lymphoma and had nausea and vomiting for greater than a week prior to admission. She also noted some vertiginous symptoms upon standing. Her presentation to the emergency room showed ascites on CT scan, creatinine of 1.6 and albumin of 2.6, hemoglobin of 8.8. She does have underlying diabetes mellitus. Upon continued observation, she is noted to have worsening of her anemia. Her hematocrit today is 24, white count decreased to 15.8 and a platelet count of 331,000. Dr. Martinez called, requesting upper endoscopy and possible colonoscopy depending on clinical findings on upper endoscopy. She denies any prior history of upper endoscopy and has had no hematemesis associated with her current situation. She denies prior ulcer history to me. A CT scan was performed at the time of initial evaluation showed four-quadrant ascites, gallstones, and L3-4 and L4-5 posterior osteophytes and moderate central stenosis at both levels. Today, the patient is sitting upright and does not feel particularly dizzy. Transfusion was anticipated from what I understand. She has been intolerant of oral intake and today is n.p.o. REVIEW OF SYSTEMS: She denies any epigastric or substernal pain. Denies any lower abdominal pain, but does describe previous rectal bleeding, which was otherwise asymptomatic. PHYSICAL EXAMINATION: GENERAL: This is an obese woman, who does speak Ukrainian. Electronically Signed By: ASAD WINN MD 09/25/21 1723 PATIENT NAME: ALFONSO RIOS CONSULTATION DATE OF : 34 REPORT #: [id number] PHYSICIAN: ASAD WINN MD PCP: SHAUN CREWS DO REPORT IS CONFIDENTIAL AND NOT TO BE RELEASED WITHOUT AUTHORIZATION [facility] [address] [place], [place] [address] Signed VITAL SIGNS: Currently, temperature is 99.4, previously 99.1; blood pressure 112/53; pulse of 90; room air saturation was 99%. She is on nasal cannula oxygen currently. NECK: Trachea is midline. CHEST: Clear. HEART: Regular at this time. She has a port device in the right subclavian area. ABDOMEN: Quite obese, but soft and nontender. EXTREMITIES: Show no edema. LAB STUDIES: Most recently show white count of 15.8, hematocrit 24, and platelets 331,000 Chem profile showing creatinine of 1.69 at 0500 today, previously 1.61. Urinalysis was essentially normal, red cells 4-6 per high-power field. Serology showed no evidence of COVID disease or other respiratory viruses. IMAGING DATA: Her CT scan images are reviewed, showing a dense mass in the presternal area, which may not represent lymphoma despite its atypical position. The liver generally appears normal. There is ascites around the spleen noted. Additionally, thomas-hepatic ascites was noted. Gallstones are noted within the gallbladder. It does not look particularly inflamed on the CT scan. ASSESSMENT: A request is made for upper endoscopy and possible colonoscopy on the basis of her anemia and bleeding. She is noted to have lymphoma, though I do not know the primary source of it at this time. She does have abdominal ascites and I am uncertain as to the etiology of that problem, but she is notably without evidence of thrombocytopenia. Upper endoscopy can be performed to better characterize her upper gastrointestinal tract as a possible source of anemia, though more likely this represents a lower gastrointestinal source. As she does not have pancytopenia, it is less likely this represents a bone marrow failure problem and she has had rectal bleeding, it is noted. The risks of bleeding, infection, perforation, and so forth related to upper endoscopy and possible colonoscopy were reviewed with her, she understands and wished to proceed. If upper endoscopy today is negative, she will proceed with a bowel prep, anticipating colonoscopy tomorrow. MD GIOVANI Hayward/EDILSONL /[id number] Electronically Signed By: ASAD WINN MD 09/25/21 1723 PATIENT NAME: ALFONSO RIOS CONSULTATION DATE OF : 34 REPORT #: [id number] PHYSICIAN: ASAD WINN MD PCP: SHAUN CREWS DO REPORT IS CONFIDENTIAL AND NOT TO BE RELEASED WITHOUT AUTHORIZATION [address], [place] [address] Signed cc: DO Mike Henson MD Cynthia Rasch, MD Copies: SHAUN CREWS ROBERT C MD RASCH, CYNTHIA MD ~ Electronically Signed By: ASAD WINN MD 09/25/21 1723 PATIENT NAME: ALFONSO RIOS CONSULTATION DATE OF : 34 REPORT #: [id number] PHYSICIAN: ASAD WINN MD PCP: SHAUN CREWS DO REPORT IS CONFIDENTIAL AND NOT TO BE RELEASED WITHOUT AUTHORIZATION
--- NOTE | 2021-09-26 15:44 | OR ---
[facility] [address] [facility] [place], [place] [address] Signed DATE OF OPERATION: 09/25/2021 SURGEON: Asad Wnin MD PREOPERATIVE DIAGNOSES: 1. Gastric neoplasm, histology pending. 2. Elevated CEA level (22). 3. Ascites, unknown etiology. POSTOPERATIVE DIAGNOSES: 1. Gastric neoplasm, histology pending. 2. Elevated CEA level (22). 3. Ascites, unknown etiology. PROCEDURES: Left abdominal ultrasound-guided paracentesis. ANESTHESIA: 1% lidocaine. INDICATION: This 86-year-old white woman, was admitted by Dr. Martinez on September 21, 2021, with significant anemia. She has undergone transfusion. She does have a CT scan findings of ascites of uncertain etiology. The patient underwent upper endoscopy by me two days ago where she was found to have an ulcerated gastric neoplasm almost certainly accounting for the anemia. Additionally, a brief flexible sigmoidoscopy shows internal hemorrhoids. She had been having some episodic rectal bleeding. A CEA level was obtained, which was greater than 22. She is now to undergo a diagnostic paracentesis to better characterize the ascites fluid and in particular to assess for neoplastic cells. Notably, the patient has had increasing white count over the past several days, though she has no actual fever and no complaints of abdominal pain. Quite important is the prior history of B-cell lymphoma, originally diagnosed in 2018. She is to undergo diagnostic paracentesis at this time to better characterize the ascites fluid and in particular to assess for possible metastatic disease. The risks of bleeding, infection, bowel injury, and other unforeseen complications was reviewed with her. She understands and wished to proceed. FINDINGS: Electronically Signed By: ASAD WINN MD 09/26/21 1544 PATIENT NAME: ALFONSO RIOS OPERATIVE REPORT DATE OF : 33 REPORT #: [id number] PHYSICIAN: ASAD WINN MD PCP: SHAUN CREWS DO REPORT IS CONFIDENTIAL AND NOT TO BE RELEASED WITHOUT AUTHORIZATION [facility] [address] [place], [place] [address] Signed Vianney colored, slightly turbid fluid was noted. There was no sign of blood. A 60 mL syringe was obtained, which was adequate for the purpose at hand. DESCRIPTION OF PROCEDURE: At the bedside, abdominal ultrasound was undertaken on the left abdomen confirming an area of entry in the left upper abdomen appropriate for obtaining the fluid. The area was prepared with a chlorhexidine solution and draped sterilely. A 1% lidocaine was injected locally. With the probe secured by the butcher's assistant, 1% lidocaine anesthesia was found to be adequate and a small adilson was made in the skin with an 11 blade. The paracentesis covered sheath needle was directed into the space allowing for withdrawal of peritoneal fluid and the catheter portion advanced and the needle removed. A 3-way stopcock was applied with a syringe and adequate fluid was obtained. She does not have massive ascites and therefore, ultrasound visualization of a reasonable collection of fluid was quite helpful. The angiocatheter was removed and the site secured with a Band-Aid. She tolerated the procedure well. There were no complications. MD GIOVANI Hayward/MARIA ESTHER /[id number] cc: DO Mike Henson MD Cynthia Rasch, MD Copies: SHAUN CREWS ROBERT C MD RASCH, CYNTHIA MD ~ Electronically Signed By: ASAD WINN MD 09/26/21 1544 PATIENT NAME: ALFONSO RIOS OPERATIVE REPORT DATE OF : 34 REPORT #: [id number] PHYSICIAN: ASAD WINN MD PCP: SHAUN CREWS DO REPORT IS CONFIDENTIAL AND NOT TO BE RELEASED WITHOUT AUTHORIZATION
--- NOTE | 2021-09-26 15:44 | OR ---
[facility] [address] [place], [place] [address] Signed DATE OF OPERATION: 09/23/2021 SURGEON: Asad Winn MD PREOPERATIVE DIAGNOSES: 1. Persistent anemia (hemoglobin 7). 2. Recent episodic rectal bleeding. POSTOPERATIVE DIAGNOSES: 1. Neoplasm of mid stomach. 2. Internal hemorrhoids. PROCEDURES: 1. Esophagogastroduodenoscopy with biopsy. 2. Flexible sigmoidoscopy limited. ANESTHESIA: Propofol infusion; Bruce Pack CRNA. PREOPERATIVE ANTIBIOTIC: Ancef. INDICATION: This 86-year-old woman is admitted to the hospital on September 21, [address] Martinez. She is a patient of Dr. Michelle dawson. She is known to have B-cell lymphoma, having undergone treatment. A Port-A-Cath was [place] [address] Jose C Majano in the right subclavian area. In the past few days, she was admitted with weakness and so forth and found to have anemia with hemoglobin of 8. She had episodic small amounts of rectal bleeding. She has had poor ability to tolerate oral intake as well and is not eating well lately. She has been observed and has had no hematemesis, but consultation was undertaken at the direction of Dr. Martinez today for consideration of upper endoscopy and possible colonoscopy. I have reviewed with the patient the risks of bleeding, infection, perforation, and so forth related to upper endoscopy and colonoscopy if necessary. She understands. Notably, a CT scan was performed, which showed ascites of the abdomen and no other findings of note other than gallstones. Electronically Signed By: ASAD WINN MD 09/26/21 1544 PATIENT NAME: ALFONSO RIOS OPERATIVE REPORT DATE OF : 34 REPORT #: [id number] PHYSICIAN: ASAD WINN MD PCP: CHRIST CREWS DO REPORT IS CONFIDENTIAL AND NOT TO BE RELEASED WITHOUT AUTHORIZATION [facility] [address] [place], [place] [address] Signed FINDINGS: Esophagus and duodenum were normal. There was an ulcerated neoplasm of the mid upper stomach consistent with malignancy almost certainly accounting for her anemia. Did not have the characteristic appearance of lymphoma proper, however. Limited flexible sigmoidoscopy was undertaken with the upper endoscope confirming internal hemorrhoids, which were friable and almost certainly the source for recent rectal bleeding. There was no evidence of neoplasm up to approximately 20 cm. PROCEDURE IN DETAIL: The patient was brought to the endoscopy suite and placed in lateral decubitus position. Full cardiopulmonary monitoring was maintained. A bite block was placed. She was given intravenous sedation under the direction of the teaching specialists with propofol infusional technique. An Olympus video upper endoscope was passed by hypopharynx. The vocal cords were visualized as normal. Scope was advanced to the esophagus and throughout its length it was normal. The scope was passed in the stomach. Rugal folds initially appeared normal. The antrum was normal as was the pylorus. The scope was passed through into the duodenum, which was normal. The scope was withdrawn and retroflexed view undertaken, showing an ulcerated neoplasm in the upper third of the stomach it appeared. Careful manipulation allowed for better visualization and appeared to be a primary malignancy of the stomach. Multiple biopsies were obtained. The scope was withdrawn and reoriented, and antegrade view allowed for good visualization as well. The scope was withdrawn to the distal esophagus, which was normal. Scope was withdrawn and removed. She was not prepped for colonoscopy, digital rectal examination was undertaken and the flexible endoscope passed into the rectum allowing for manipulation to about 15 to 20 cm, which was normal. The scope was withdrawn and the anorectal area was friable and large internal hemorrhoidal plexus that almost certainly accounted for recent bleeding, but no sign of neoplasm proper. The scope was removed and the patient was taken to the recovery room in good condition. CONCLUDING DIAGNOSES: Anemia, probably related to gastric neoplasm; rectal bleeding related to hemorrhoids. PLAN: We will review her CT scan with the radiologist, obtain a CEA level and further consideration of the neoplasm of the stomach to be undertaken. Given her underlying B-cell lymphoma history and so forth possibility of gastrointestinal lymphoma (originally noted to be in the axilla) is a consideration, however, less likely. Her ascites may be bilingual sales representative of a malignant ascites due to gastric neoplasm and consideration might be made for paracentesis with cytology. I will review this with Electronically Signed By: ASAD WINN MD 09/26/21 1544 PATIENT NAME: ALFONSO RIOS OPERATIVE REPORT DATE OF : 34 REPORT #: [id number] PHYSICIAN: ASAD WINN MD PCP: CHRIST CREWS DO REPORT IS CONFIDENTIAL AND NOT TO BE RELEASED WITHOUT AUTHORIZATION [facility] [address] [facility] [place] [address] Signed Juan. MD GIOVANI Hayward/MODL /[id number] cc: MD Christ Harding DO Copies: KELLEN MARTINEZ MD, ARIAN DO ~ Electronically Signed By: ASAD WINN MD 09/26/21 1544 PATIENT NAME: ALFONSO RIOS OPERATIVE REPORT DATE OF : 34 REPORT #: [id number] PHYSICIAN: ASAD WINN MD PCP: CHRIST CREWS DO REPORT IS CONFIDENTIAL AND NOT TO BE RELEASED WITHOUT AUTHORIZATION
--- NOTE | 2021-09-28 14:54 | PATH ---
[facility] [address] [place] [facility] [place] [address] Signed SPECIMEN(S): A STOMACH BIOPSY SPECIMEN SOURCE: A. STOMACH BIOPSY CLINICAL HISTORY: Anemia; nausea and vomiting; being treated for B-cell lymphoma. Findings: Gastric tumor FINAL PATHOLOGIC DIAGNOSIS: Stomach biopsy: - Gastric-type mucosa with prominent lymphoid mucosal infiltrate and superficial slight chronic and active inflammation. - A Helicobacter pylori immunostain is positive for organisms. - See comment. COMMENT: The patient's history of B-cell lymphoma is noted. Evaluation of the mucosal lymphocytes reveals scattered small B and T cells in the presence of Helicobacter pylori organisms. If concern persists at this site, repeat evaluation could be considered following eradication of the Helicobacter gastritis. JVR:[facility]:C2NR MICROSCOPIC EXAMINATION: Histologic sections of all submitted blocks are examined by light microscopy. These findings, together with the gross examination, support the pathologic diagnosis. A Helicobacter pylori immunostain is performed with appropriate positive and negative controls on block (A1) and is negative for organisms. Immunohistochemical stains are performed with appropriate positive and negative controls and show the following: - CD3: Positive in scattered small lymphocytes. - CD20: Positive scattered in small lymphocytes. JVR:sm GROSS DESCRIPTION: The specimen, labeled "PC 1," and designated on the requisition "stomach biopsy," is received in formalin and consists of multiple rangel-white to rangel soft tissue fragments that measure less than 0.1 up to 0.5 cm in greatest dimension. The specimen is entirely submitted in cassette PATIENT NAME: ALFONSO RIOS PATHOLOGY DATE OF : 34 REPORT #: [id number] PHYSICIAN: DIANE VALDIVIA PCP: SHAUN CREWS DO REPORT IS CONFIDENTIAL AND NOT TO BE RELEASED WITHOUT AUTHORIZATION [facility] [address] [place], [place] [address] Signed (A1). AI (under the direct supervision of a pathologist) The Gross Description was prepared using a voice recognition system. The report was reviewed for accuracy; however, sound-alike word errors, addition and/or deletions may occur. If there is any question about this report, please contact Client Services. ADDITIONAL NOTES: Immunohistochemical and/or in situ hybridization studies were performed on this case with the appropriate positive controls that react as expected. This test was developed and its performance characteristics determined by [facility]. It has not been cleared or approved by the U.S. Food and Drug Administration. The FDA has determined that such clearance or approval is not necessary. This test is used for clinical purposes. It should not be regarded as investigational or for research. [facility] is certified under the Clinical Laboratory Improvement Amendments of 1988 (CLIA) as qualified to perform high complexity clinical laboratory testing. This assay has not been validated for specimens that have been decalcified. PERFORMING LABORATORY: The technical component was performed by [facility], [address] [place] [id number] (CLIA# [id number]). Professional interpretation was performed by [facility], [address] [place] [id number] (CLIA#: [id number]). Diagnostician: Scotty Goldberg MD Pathologist Electronically Signed 09/28/2021 Copies: ~ PATIENT NAME: ALFONSO RIOS PATHOLOGY DATE OF : 34 REPORT #: [id number] PHYSICIAN: DIANE PATHOLOGY PCP: SHAUN CREWS DO REPORT IS CONFIDENTIAL AND NOT TO BE RELEASED WITHOUT AUTHORIZATION
--- NOTE | 2021-09-28 15:30 | OR ---
[facility] [address] [place], [place] [address] Signed DATE OF OPERATION: 09/27/2021 SURGEON: Asad Winn MD PREOPERATIVE DIAGNOSES: 1. History of B-cell lymphoma in 2018. 2. Recently diagnosed ulcerated neoplasm of stomach with associated anemia; elevated CEA 22. 3. Internal hemorrhoids and recent rectal bleeding. POSTOPERATIVE DIAGNOSIS: Ulcerated neoplasm in proximal ascending colon. PROCEDURE: Total colonoscopy to cecum with biopsy of malignant-appearing mass of right colon. ANESTHESIA: Intravenous sedation; propofol infusion; Claudia Hebert CRNA. INDICATIONS: This 86-year-old woman is admitted by Dr. Martinez on September 21, 2021 with anemia and syncopal findings. She underwent transfusion. An upper endoscopy was performed a few days ago, which confirmed an ulcerated neoplasm in the midportion of the stomach. She was concurrently noted to have ascites on her admission CT scan for reasons that were unclear and underwent paracentesis for cytologic evaluation. Pathology on gastric biopsy as well as the ascites fluid is still pending. A CEA tumor marker was obtained and found to be elevated to greater than 22. Mindful of the gastric adenocarcinoma can have concurrent elevated CEA, but also, mindful of no prior colonic evaluation other than a flexible sigmoidoscopy recently at time of upper endoscopy. Colonoscopy was deemed inadvisable concurrently at this time. The risks of bleeding, infection, and perforation were reviewed with her, she understands and wished to proceed. Notably, a colonoscopy was planned for yesterday, but she had the onset of atrial fibrillation which was new. This quickly resolved to normal sinus rhythm with correction of magnesium electrolyte. FINDINGS: The prep was good. Complete colonoscopy was undertaken of the cecum. There was a circumferential neoplastic ulcerated lesion of the proximal ascending colon, most consistent with colon cancer. The remaining colon was normal except for diverticular Electronically Signed By: ASAD WINN MD 09/28/21 1530 PATIENT NAME: ALFONSO RIOS OPERATIVE REPORT DATE OF : 34 REPORT #: [id number] PHYSICIAN: ASAD WINN MD PCP: SHAUN CREWS DO REPORT IS CONFIDENTIAL AND NOT TO BE RELEASED WITHOUT AUTHORIZATION [facility] [address] [place], [place] [address] Signed changes of the sigmoid. PROCEDURE IN DETAIL: The patient was brought to the endoscopy suite and placed in lateral decubitus position. She was given Ancef preoperative antibiotics based on the prosthetic joint in the past. She was given intravenous sedation with propofol infusional technique and digital rectal examination was normal. An Olympus video colonoscope was passed in the rectum, observing the internal hemorrhoidal changes and sigmoidal diverticulosis. The scope was advanced further ultimately coming to the right colon where a circumferential ulcerated neoplasm was noted. This was not so tight that passage could not be accomplished and with various efforts the scope was passed beyond it to the cecum itself. The ileocecal valve and appendiceal orifice were normal. The scope was withdrawn and promptly noted was the circumferential lesion which was at the proximal ascending colon. Multiple biopsies were taken of the lesion and it was clinically consistent with neoplasm. The scope was withdrawn further and remaining colon was normal except for diverticular changes as previously noted. The scope was removed. The patient was taken to the recovery room in good condition. CONCLUDING DIAGNOSIS: In addition to an ulcerated gastric neoplasm almost certainly malignant, she now is most likely having concurrent right colon cancer. She has a history of B-cell lymphoma in 2018, which has been treated. Whether any of these new neoplasms or lymphoma in fact is uncertain and cytologic analysis of paracentesis fluid is still pending. I could foresee consideration for right colectomy concurrent to a partial gastric resection of the neoplasm as well as concurrent cholecystectomy for gallbladder with stones and her current symptoms suggestive of possible biliary disease. We will review this further in light of what pathology is identified. MD GIOVANI Hayward/MODL /[id number] Electronically Signed By: ASAD WINN MD 09/28/21 1530 PATIENT NAME: ALFONSO RIOS OPERATIVE REPORT DATE OF : 34 REPORT #: [id number] PHYSICIAN: ASAD WINN MD PCP: SHAUN CERWS DO REPORT IS CONFIDENTIAL AND NOT TO BE RELEASED WITHOUT AUTHORIZATION [facility] [address] [place], [place] [address] Signed cc: MD Sol Damon MD Arian Kargar, DO Copies: KEY BENJAMIN MD,SHAUN TRUONG MD, DO ~ Electronically Signed By: ASAD WINN MD 09/28/21 1530 PATIENT NAME: ALFONSO RIOS OPERATIVE REPORT DATE OF : 34 REPORT #: [id number] PHYSICIAN: ASAD WINN MD PCP: SHAUN CREWS DO REPORT IS CONFIDENTIAL AND NOT TO BE RELEASED WITHOUT AUTHORIZATION
--- NOTE | 2021-09-28 20:38 | EKG ---
[facility] [address] [facility] [place] [address] Signed Sinus tachycardia Nonspecific T wave abnormality Abnormal ECG When compared with ECG of 23-SEP-2021 12:12, Nonspecific T wave abnormality now evident in Anterolateral leads Confirmed by KEY BENJAMIN MD ([id number]) on 09/28/2021 8:38:49 PM Electronically Signed By: KEY BENJAMIN MD 09/28/212037 PATIENT NAME: ALFONSO RIOS Electrocardiogram DATE OF : 34 PHYSICIAN: KEY BENJAMIN MD REPORT #: [id number] REPORT IS CONFIDENTIAL AND NOT TO BE RELEASED WITHOUT AUTHORIZATION
--- NOTE | 2021-09-30 13:40 | PATH ---
[facility] [address] [place], [place] [address] Signed THIS IS AN ADDENDUM REPORT SPECIMEN(S): A RIGHT COLON BIOPSY TUMOR SPECIMEN SOURCE: A. RIGHT COLON BIOPSY TUMOR CLINICAL HISTORY: Anemia, elevated CEA, abdominal pain. Postop: Right colon CA. 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 COMMENT: Immunostains support a colorectal origin for this tumor. As part of [facility] Quality Improvement Program, this case was reviewed by another member of our pathology staff. Diagnostic notification to the office of Dr. Christ Crews is initiated by Dr. Goldberg and will be recorded separately. JVR:DS:marielle:C1NR MICROSCOPIC EXAMINATION: Histologic sections of all submitted blocks are examined by light microscopy. These findings, together with the gross examination, support the pathologic diagnosis. Immunostains are performed with appropriate controls on block (A1) and show the following: - CK7: Negative in tumor cells. - CK20: Positive in tumor cells. - CDx2: Positive in tumor cells (nuclear). - Villin: Positive in tumor cells. JVR:sm GROSS DESCRIPTION: The specimen, labeled "PC, right colon tumor biopsy," is received in formalin and consists of five rangel soft tissue fragments that measure 0.1-0.2 cm in greatest dimension. The specimen is entirely submitted in cassette (A1). JS (under the direct supervision of a pathologist) The Gross Description was prepared using a voice recognition system. The report PATIENT NAME: ALFONSO RIOS PATHOLOGY DATE OF : 33 REPORT #: [id number] PHYSICIAN: DIANE VALDIVIA PCP: CHRIST CREWS DO REPORT IS CONFIDENTIAL AND NOT TO BE RELEASED WITHOUT AUTHORIZATION [facility] [address] [place], [place] [address] Signed was reviewed for accuracy; however, sound-alike word errors, addition and/or deletions may occur. If there is any question about this report, please contact Client Services. ADDITIONAL NOTES: Immunohistochemical and/or in situ hybridization studies were performed on this case with the appropriate positive controls that react as expected. This test was developed and its performance characteristics determined by [facility]. It has not been cleared or approved by the U.S. Food and Drug Administration. The FDA has determined that such clearance or approval is not necessary. This test is used for clinical purposes. It should not be regarded as investigational or for research. [facility] is certified under the Clinical Laboratory Improvement Amendments of 1988 (CLIA) as qualified to perform high complexity clinical laboratory testing. This assay has not been validated for specimens that have been decalcified. PERFORMING LABORATORY: The technical component was performed by [facility], [address] [place] [id number] (CLIA# [id number]). Professional interpretation was performed by [email or web address] - [facility], [address] [place] [id number] (CLIA#: [id number]). COMMENT: Tumor cells show no loss of nuclear expression of MMR proteins. This correlates with a low probability of microsatellite instability. However, if there is a high clinical suspicion for Grimm syndrome (hereditary non-polyposis colorectal carcinoma syndrome) in this patient, additional testing should be considered. Please contact [facility] if such testing is indicated. MAGALI:teri ADDITIONAL NOTES: Immunohistochemical and/or in situ hybridization studies were performed on this case with the appropriate positive controls that react as expected. This test was developed and its performance characteristics determined by [facility]. It has not been cleared or approved by the U.S. Food and Drug Administration. The FDA has determined that such clearance or approval is not necessary. This test is used for clinical purposes. It should not be regarded as investigational or for research. [facility] is certified under the PATIENT NAME: ALFONSO RIOS PATHOLOGY DATE OF : 33 REPORT #: [id number] PHYSICIAN: JENMedstory SKIP PCP: CHRIST CREWS DO REPORT IS CONFIDENTIAL AND NOT TO BE RELEASED WITHOUT AUTHORIZATION [facility] [address] [place] [id number] Signed Clinical Laboratory Improvement Amendments of 1988 (CLIA) as qualified to perform high complexity clinical laboratory testing. PERFORMING LABORATORY: The technical preparation was performed by [email or web address], [address], [place] [address] (CLIA#: [id number]). Professional interpretation was performed by [email or web address] - [facility], [address] [place] [address] , [place] [address] (CLIA#: [id number]). REASON FOR ADDENDUM: To report the results of additional testing. ADDENDUM FINAL PATHOLOGIC DIAGNOSIS: Right colon, signet ring adenocarcinoma, microsatellite instability testing by IHC: - MLH1: Intact nuclear expression. - MSH2: Intact nuclear expression. - MSH6: Intact nuclear expression. - PMS2: Intact nuclear expression. INTERPRETATION: Normal pattern. ADDENDUM MICROSCOPIC EXAMINATION: A panel of four antibodies is selected which will detect 95% of microsatellite unstable carcinomas. Testing is performed at the request of Scotty Goldberg MD. Block: A1. Recut HE slide is prepared from the block. The presence of neoplastic glands and non-neoplastic internal control glands or stroma is confirmed. Internal control cells for MLH1, MSH2, PMS2 and MSH6 are positive. Neoplastic gland cells show the following: - MLH1: Positive. - MSH2: Positive. - MSH6: Positive. - PMS2: Positive. Technical testing is performed at [facility], [place]. JVR:[facility] Diagnostician: Scotty Goldberg MD Pathologist Electronically Signed 09/30/2021 PATIENT NAME: ALFONSO RIOS PATHOLOGY DATE OF : 33 REPORT #: [id number] PHYSICIAN: [facility] PCP: CHRIST CREWS DO REPORT IS CONFIDENTIAL AND NOT TO BE RELEASED WITHOUT AUTHORIZATION [facility] [address] [place] [address] [place], [place] [address] Signed Copies: ~ PATIENT NAME: BLANCAALFONSO PATHOLOGY DATE OF : 33 REPORT #: [id number] PHYSICIAN: DIANE VALDIVIA PCP: CHRIST CREWS DO REPORT IS CONFIDENTIAL AND NOT TO BE RELEASED WITHOUT AUTHORIZATION
--- NOTE | 2021-10-02 11:38 | OR ---
[facility] [address], [place] [address] Signed DATE OF OPERATION: 09/30/2021 SURGEON: Asad Winn MD PREOPERATIVE DIAGNOSES: 1. Right colon cancer ( Adenocarcinoma) with ulceration and bleeding. 2. 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 3. Benign ascites (preop paracentesis). 4. Symptomatic gallstones. 5. Distant history of B-cell lymphoma in 2018 ( axillary manifestation initially). POSTOPERATIVE DIAGNOSES: 1. Omental carcinomatosis. 2. Left adnexal mass. 3. Right subphrenic abscess and inflammation. 4. Right colon carcinoma, ulcerated and nearly obstructing. 5. Subacute calculous cholecystitis. 6. Ulcerated gastric lymphoma lesion. 7. Ascites. PROCEDURES: 1. Laparotomy with drainage of ascites. 2. Right colectomy with end-to-side ileo transverse colostomy. 3. Total omentectomy, incomplete tumor debulking. 4. Left adnexal mass excision. 5. Open cholecystectomy. 6. Wedge excision mid body of stomach, gastric lymphoma. 7. Drainage and irrigation of right subphrenic abscess site. ANESTHESIA: General endotracheal, Claudia Argyle, [employer], and postoperative Tap blocks. HISTORY: This 86-year-old woman, who is admitted to the hospital by Dr. Martinez on September 21, 2021, with complaints of dizziness and complaints of abdominal and pelvic pain. She had been treated in [address] Vidal for B-cell lymphoma diagnosed on axillary biopsy. She had undergone chemotherapy through a right subclavian Port-A-Cath device placed by Dr. Jose C Majano in the past. Her pain was dominantly in the lower abdomen. She additionally was noted to have some rectal bleeding. She was found to have an elevated creatinine of 1.6, a low albumin of 2.6, hemoglobin of 8.8, and a CT scan Electronically Signed By: ASAD WINN MD 10/02/21 1138 PATIENT NAME: ALFONSO RIOS OPERATIVE REPORT DATE OF : 33 REPORT #: [id number] PHYSICIAN: ASAD WINN MD PCP: CHRIST CREWS DO REPORT IS CONFIDENTIAL AND NOT TO BE RELEASED WITHOUT AUTHORIZATION [facility] [address], [place] [address] Signed showing ascites. She does have diabetes mellitus. Consultation was undertaken on the basis of her anemia as well as episodic rectal bleeding. Surgical consultation was undertaken and she underwent upper endoscopy by me on September 23, 2021, which showed an ulcerated lesion in the mid to upper portion of the stomach, which was suggestive though not diagnostic of a gastric carcinoma. Flexible sigmoidoscopy demonstrated internal hemorrhoids, possibly accounting for her rectal bleeding. The patient has had increasing elevated white count and was noted on initial CT scan to have ascites. CEA level was obtained, which was 22, quite elevated. CT scan was originally done showed no sign of hepatic metastasis nor signs of colon lesion nor the gastric lesion diagnosed on upper endoscopy. On the basis of her elevated CEA and with no known prior history of colonoscopy, she underwent colonoscopy, which demonstrated an ulcerated neoplasm of the proximal ascending colon. Uncertain as to the etiology of her ascites, I performed paracentesis. Cytology of the gastric lesion was considered probably a lymphoma; she had H pylori concurrently diagnosed and has been under treatment for that. The paracentesis to rule out malignant ascites showed no evidence of neoplastic disease. The patient additionally was noted to have gallstones on the CT scan and her initial presentation was additionally accompanied by poor oral intake, some upper abdominal pain, and concern maintained that she may have symptomatic gallstones in addition to all else. I have reviewed with the patient as well as one of her daughters in concert with Dr. Benjamin ( her hospitalist currently) the recommendations for surgery. I reviewed this also with her oncologist Dr Vidal informally as well. I have recommended right colectomy as the colon is a likely source for hemorrhage accounting for her anemia, as well as partial resection of the gastric lesion if feasible as it was ulcerated as well and likely represents lymphoma. Additionally, we would recommend cholecystectomy as I believe her symptoms are dominantly related to the gallbladder, which is shown to have stones. Other indicated procedures may also be needed and she agrees to those as well. The risks of bleeding, infection, anastomotic failure, failure to cure the problem overall, and other unforeseen complications was reviewed in great detail. The patient and her daughter understand and wished to proceed. FINDINGS: Indeed, she had considerable ascites. It did not appear to be infected fluid grossly speaking. There was carcinomatosis dominantly of the omentum. Impressive amount of nodular changes were noted in the omentum. Additionally noted was a left adnexal mass, Electronically Signed By: ASAD WINN MD 10/02/21 1138 PATIENT NAME: ALFONSO RIOS OPERATIVE REPORT DATE OF : 33 REPORT #: [id number] PHYSICIAN: ASAD WINN MD PCP: CHRIST CREWS DO REPORT IS CONFIDENTIAL AND NOT TO BE RELEASED WITHOUT AUTHORIZATION [address] [address] Signed which may or may not be a primary ovarian carcinoma source; most likely it represent some metastatic disease to the ovary. The uterus was intact. The tumor of the right colon was well identified and just at the start of the ascending colon at the junction between the cecum and the right colon. The thickened mesentery was suggestive mostly of obesity rather than metastatic disease, though the lymph nodes are most likely positive for metastatic disease. In addition, the gallbladder was subacutely inflamed and distended and had multiple (4) large multifaceted gallstones. Of special note was an impressively inflammatory appearance of the right subphrenic space with loculated creamy like curd material suggestive of subphrenic abscess. The small bowel in its entirety was normal, though there were a few small carcinomatosis lesions on the mesentery, but not many at all really. The spleen was normal. As regards the stomach, the gastric lymphoma ulcerated lesion was easily palpable on the anterior aspect and was resected. DESCRIPTION OF PROCEDURE: The patient was brought to the operating room, given a general endotracheal anesthetic. Initial use of her right subclavian port device was unsuccessful for reasons that are unclear as she did have fluids infusing today as well as preoperative antibiotics administered. Access with a Collier needle did not allow for withdrawal of blood and that site was abandoned for use during the case pending its further evaluation. IV was started in the right arm. Preoperative antibiotic cefoxitin was given and she did undergo a preoperative bowel prep including oral antibiotics. After satisfactory general endotracheal anesthesia, a Dunlap catheter was placed. The thick abdominal pannus and so forth was meticulously prepared with chlorhexidine solution and draped sterilely. The previous low midline pelvic incision was noted. The incision today was above the umbilicus extending through the thick abdominal wall pannus and then into the abdomen. Upon entry into the abdomen, copious amount of ascites fluid was withdrawn and removed. Immediately noted were 1-2 cm nodules compliance representative of carcinomatosis intercalated with the omentum quite impressively. There were also some areas of such nodules on the mesentery of the small bowel, but dominantlyi this represented extensive omental involvement mostly. The liver was palpably normal. The incision was extended inferiorly and superiorly for further examination. Surprisingly, the small bowel and virtually all of small bowel mesentery was free of nodular change. The liver was grossly normal without palpable lesion. Palpation of the stomach revealed a mass as expected in the anterior wall of the stomach approximately 2/3rd cephalad to the pylorus. A Bookwalter retractor was obtained. Ascites fluid was suctioned free. It is recalled that pre operative paracentesis and fluid cytology did not reveal signs of malignancy. Electronically Signed By: ASAD WINN MD 10/02/21 1138 PATIENT NAME: ALFONSO RIOS OPERATIVE REPORT DATE OF : 33 REPORT #: [id number] PHYSICIAN: ASAD WINN MD PCP: CHRIST CREWS DO REPORT IS CONFIDENTIAL AND NOT TO BE RELEASED WITHOUT AUTHORIZATION [address] [address] Signed It was thoughtfully considered whether or not closure of the abdomen for expectant management would be undertaken. Mindful of our intent for meaningful palliation, the operation proceeded. The omentum was freed from the transverse colon and the stomach and left in situ in continuity with the right colon. Small bowel was packed to the left side of the abdomen allowing for mobilization in the white line of Toldt on the right side. The right colon was from the posterior attachments, which showed a fair amount of edema and inflammation. The right colonic mesentery was scored and sequential application of hemostats was undertaken allowing for 0 silk ligation of the vascular pedicles. In the upper portions near the hepatic flexure and those areas corresponding to the ileocolic vessels, 0 silk sutures were used to secure the vascular pedicles. A small amount of ileum was fully exposed and then transected with a KAVON stapling device. The omentum had been freed from the stomach and left in continuity with the right transverse colon. Portions of the left omentum were freed completely securing the vascular pedicles with 0 silk ties. Further mobility of the right colonic mesentery was undertaken ultimately allowing for complete division of the mesentery corresponding to the mid transverse colon. A KAVON stapling device was used to transect the mid transverse colon and specimen in continuity; essentially all of the omentum was passed off the table. Irrigation was undertaken. Examination fully revealed that proximal and distal segments of bowel were quite viable. An end-to-side ileotransverse colostomy was undertaken in a 2-layer technique of interrupted 3-0 silk suture in the serosal layer, interrupted 3-0 Vicryl in the mucosal layer. The mesenteric defect was secured with interrupted silk sutures. The anastomosis was patent and viable. The small bowel was returned to a natural position and found to be viable as well. Palpation of the anterior wall of the stomach was undertaken showing the offending lesion to be approximately 2/3rd of the distance up from the pylorus. The ulcerated lesion having been visualized on upper endoscopy was deemed advisable to resect as it may be one or more of the causes of her bleeding and anemia. A Atul clamp was used to elevate the lesion and a KAVON stapling device used to transect the stomach lesion transversely. Complete excision of ulcerated lympnomatous mass was accomplished. The staple line was very secure but was additionally oversewn with 3-0 Silk suture. Attention was turned towards the pelvis. The small bowel was packed cephalad and the Electronically Signed By: ASAD WINN MD 10/02/21 1138 PATIENT NAME: ALFONSO RIOS OPERATIVE REPORT DATE OF : 33 REPORT #: [id number] PHYSICIAN: ASAD WINN MD PCP: CHRIST CREWS DO REPORT IS CONFIDENTIAL AND NOT TO BE RELEASED WITHOUT AUTHORIZATION [facility] [address], [place] [address] Signed uterus identified generally as normal, but with a bulky left adnexal mass. Mindful that the carcinomatosis most likely would be related to the colonic neoplasm, the possibility of another primary malignancy (ovarian) was made and excision of the adnexal mass deemed advisable. Application of tonsil clamps to the vascular pedicles of the left adnexal structures was undertaken and those areas were oversewn with 0 silk suture for good hemostasis. The mass of the ovary was approximately 6-8 cm in size and passed for permanent pathology. Excess irrigation fluid in the size was suctioned free. Attention was then turned towards the gallbladder. The gallbladder had been seen as a potential cause of her poor ability to eat as well as right upper and epigastric pain. On that basis, cholecystectomy was deemed advisable. The gallbladder was distended and subacutely inflamed. The surrounding small bowel was packed and secured with the Bookwalter retractor. Decompression of the gallbladder was undertaken showing clear yellow bile. A pursestring suture was used to secure the puncture site. A ring clamp was applied to the fundus of the gallbladder and using electrocautery, the gallbladder dissected free from the liver bed using electrocautery throughout. The distal portion of small cystic arterial branches were doubly clipped and divided. Ultimately, the cystic duct was well identified. Two large clips were applied distally, a large clip proximally, and the cystic duct transected. The gallbladder was opened on the back table and found to have at least 4 large multifaceted gallstones. The mucosa of the gallbladder was inflammed. Irrigation was undertaken showing no sign of bleeding or other problem. Reinspection of the abdominal cavity was undertaken. There appeared to be good hemostasis. Upon irrigation, the examining hand was passed over the dome of the liver at the most extreme portion on the right side demonstrating loculated curd-like proteinaceous material and intense inflammatory changes of the diaphragm itself. This area was Gram stain and cultured on the high probability this represented an abscess. Once completely freed and irrigated clean, plans were made for closure. The small bowel was returned to its natural anatomic configuration and all areas of anastomosis with serosal closure were examined and found to be viable and watertight. The midline fascia was reapproximated with running bidirectional #1 PDS suture. Subcutaneous tissue was irrigated and skin closed with running subcuticular 3-0 Vicryl. Steri-Strips were applied as was Acticoat dressing. At the conclusion of the procedure, the maritime pilot performed bilateral Tap blocks for Electronically Signed By: ASAD WINN MD 10/02/21 1138 PATIENT NAME: ALFONSO RIOS OPERATIVE REPORT DATE OF : 33 REPORT #: [id number] PHYSICIAN: ASAD WINN MD PCP: CHRIST CREWS DO REPORT IS CONFIDENTIAL AND NOT TO BE RELEASED WITHOUT AUTHORIZATION [address] [address] Signed postoperative analgesic benefit. She was extubated without problem and transferred to the recovery room in good condition, having suffered no known complications. Sponge, needle, and instrument counts reported as correct x3. Blood loss was estimated at 200 mL. MD GIOVANI Hayward/EDILSONL /[id number] cc: MD Christ Damon DO Robert C Quackenbush, MD Cynthia Rasch, MD Copies: KEY BENJAMIN MD, ARIAN DO QUACKENBUSH, ROBERT C MD RASCH, CYNTHIA MD ~ Electronically Signed By: ASAD WINN MD 10/02/21 1138 PATIENT NAME: ALFONSO RIOS OPERATIVE REPORT DATE OF : 33 REPORT #: [id number] PHYSICIAN: ASAD WINN MD PCP: CHRIST CREWS DO REPORT IS CONFIDENTIAL AND NOT TO BE RELEASED WITHOUT AUTHORIZATION
--- NOTE | 2021-10-07 15:11 | PATH ---
[facility] [address] [facility] [place], [place] [address] Signed SPECIMEN(S): A RIGHT COLON SPECIMEN(S): B PORTON OF STOMACH SPECIMEN(S): C LEFT ADNEXAL MASS SPECIMEN(S): D GALLBLADDER SPECIMEN SOURCE: A. RIGHT COLON B. PORTON OF STOMACH C. LEFT ADNEXAL MASS D. GALLBLADDER CLINICAL HISTORY: Right colon cancer FINAL PATHOLOGIC DIAGNOSIS: A. Right colon, partial colectomy, segmental resection: - Specimen and procedure: - Right colon segmental resection: - Tumor site: Right colon. - Tumor size: 6.0 x 5.6 x 3.1 cm. - Macroscopic tumor perforation: Absent. 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 - Histologic grade: 2 (moderately differentiated). - Tumor extension: Tumor invades the muscularis propria and pericolonic adipose tissue and extends to the serosal surface. - Surgical margin: Tumor present at the vascular root margin (positive vascular root margin). - Tumor free of the proximal and distal resection margins by greater than 1 cm. - Treatment effect: No prior therapy. - Lymph vascular invasion: Present. - Perineural invasion: Indeterminate. - Tumor deposit: Present (greater than 5). - Microsatellite instability testing by immunohistochemistry: Please refer to studies performed on the diagnostic biopsy ([id number]) which were reported as: "Normal pattern". - BRAF testing: If testing is desired, please contact [facility], with prior authorization if applicable. - Additional findings: Tubular adenoma. - Lymph nodes: PATIENT NAME: ALFONSO RIOS PATHOLOGY DATE OF : 33 REPORT #: [id number] PHYSICIAN: DIANE VALDIVIA PCP: SHAUN CREWS DO REPORT IS CONFIDENTIAL AND NOT TO BE RELEASED WITHOUT AUTHORIZATION [facility] [address] [place], [place] [address] Signed - Total lymph nodes examined: 16. - Number of lymph nodes which contain tumor: 14. - Extracapsular extension: Present. - Pathologic stage classification: (pTNM, AJCC 8th edition): pT4a, pN2b, pM1c. B. Portion of stomach: - Extensive lymphoid infiltrate of gastric wall with at least one area of histologically large cell change and increased mitotic activity (see comment). C. 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 - Extensive lymphocyte infiltrate (see comment). D. Gallbladder, cholecystectomy, - Chronic mucosal inflammation. - Calculi present. COMMENT: (Part B) The stomach and left adnexal mass are heavily infiltrated by lymphocytes and the patient's history of lymphoma is noted. Evaluation of these sites is pending consultation and workup with hematopathology and their findings will be reported in an addendum. As part of [facility]' Quality Improvement Program, this case was reviewed by another member of our pathology staff. JVR:TOBI:enocr:C1NR MICROSCOPIC EXAMINATION: Immunostains are performed with appropriate controls on block B5 and show the following: - Cytokeratin AE1/AE3: Negative in area of concern. - CD45: Positive in area of concern. - CD20: Positive in many small lymphocytes and focally in area of larger cells. - CD3: Positive in scattered small lymphocytes. GROSS DESCRIPTION: Four specimens are received in four containers, labeled "Alfonso Rios." A. The specimen, labeled "Alfonso Rios," and designated on the requisition "right colon and probable lymphoma," is received in formalin and consists of a portion of right colon with attached terminal ileum, pericolonic adipose tissue, and omentum. The right colon is 16.4 cm in length and has an average internal circumference of 7.0 cm. The PATIENT NAME: ALFONSO RIOS PATHOLOGY DATE OF : 33 REPORT #: [id number] PHYSICIAN: DIANE PATHOLOGY PCP: SHAUN CREWS DO REPORT IS CONFIDENTIAL AND NOT TO BE RELEASED WITHOUT AUTHORIZATION [facility] [address] [place], [place] [address] Signed terminal ileum is 6.5 cm in length and has an average internal circumference of 4.0 cm. An appendix is not grossly identified. The middle one third of the right colon is indurated. The serosal surface in this area displays adherent adipose tissue, puckering, and red granular areas of disruption. The serosal surface in this area is inked blue. The remaining serosal surface is red and congested with multiple cyr-white nodules attached to the mesenteric serosa. The vascular resection margin is inked black. The indurated radial margin is inked green. Upon opening a 6.0 x 5.6 x 3.1 cm circumferential and centrally ulcerated mass with heaped up edges. This mass is located 7.6 cm from the distal resection margin, 10.2 cm from the proximal resection margin, 3.3 cm from the vascular root resection margin, and abuts the closest radial margin (inked green). Involvement of the appendiceal orifice or ileocecal valve is not grossly identified. Sectioning through the mass reveals extension through the muscularis propria and into the adjacent adipose tissue. The mass abuts the serosal surface and extends into the adherent tissue. The remaining mucosa is yellow-rangel and finely granular. The right colon has an average wall thickness of 0.6 cm. The mucosa of the terminal ileum is yellow-rangel and finely granular. The terminal ileum has an average wall thickness of 0.6 cm. Upon dissection of the attached pericolonic adipose tissue multiple possible lymph nodes are grossly identified. Adjacent to the mass are multiple matted lymph nodes. Attached to the distal aspect of the colon is a 41.5 x 19.5 x 2.6 cm indurated portion of omentum. The external surface is red, focally hemorrhagic with adherent membranous tissue and multiple white firm nodules that range in size from 0.4 cm up to 4.5 cm in greatest dimension. These nodules have a white granular cut surface. [employer] sections are submitted in 19 cassettes. Cassette summary: (A1) distal resection margin, shave (A2) proximal resection margin, shave (A3-A4) vascular root resection margin, shave (A5) uninvolved large and small bowel (A6) mass to serosal surface and closest radial resection margin, perpendicular (A7) mass to uninvolved bowel wall and mass to adjacent pericolonic adipose tissue PATIENT NAME: ALFONSO RIOS PATHOLOGY DATE OF : 33 REPORT #: [id number] PHYSICIAN: DIANE PATHOLOGY PCP: SHAUN CREWS DO REPORT IS CONFIDENTIAL AND NOT TO BE RELEASED WITHOUT AUTHORIZATION [facility] [address] [facility] [place], [place] [address] Signed (A8) mass to serosa and adherent adipose tissue (A9) one possible lymph node, bisected (A10) one possible lymph node, trisected (A11) matted lymph nodes within close proximity of mass (A12) two possible lymph nodes, one inked and bisected and the other trisected (A13) six possible lymph nodes, submitted whole (a14) five possible lymph nodes, submitted whole (A15) one possible lymph node, sectioned (A16) one possible lymph node, sectioned (A17) mesenteric serosa with nodules (A18-A19) omentum with nodules. B. The specimen, labeled "Alfonso Rios," and designated on the requisition "portion of stomach with probable lymphoma," is received in formalin and consists of a previously opened segment of bowel wall that is 4.6 x 4.0 x 1.4 cm. The serosal surface is pink and smooth. The mucosal surface is pink and focally congested with thin granular area that is 1.5 x 1.2 cm. The serosal surface is inked blue. The specimen is sectioned revealing a pale pink ill-defined area of the thickening that is 3.4 x 3.0 x 1.5 cm and has a pink-white firm cut surface. The stomach wall ranges in thickness from 0.7 cm up to 1.6 cm. [employer] sections are submitted in five cassettes. Cassette summary: (B1) resection margin, shave (B2-B4) ill-defined area of thickening (B5) area of thickening it to uninvolved stomach. C. The specimen, labeled " Alfonso Rios," and designated on the requisition "left adnexal mass," is received in formalin and consists of 54 g unoriented rubbery tissue fragment that is 6.5 x 6.2 x 3.1 cm. The external surface is pink-red and nodular with focal areas of disruption. The specimen is inked and serially sectioned revealing a pale pink rubbery cut surface with focal areas of white chalky material and mucoid filled cystic structures. [employer]patcher sections are submitted in cassettes (C1-C6). D. The specimen, labeled "Alfonso Rios," and designated on the requisition "gallbladder," is received in formalin and consists of: Specimen: Previously opened gallbladder. Dimensions: 3.8 x 2.8 x 1.7 cm. Serosa: Friona and focally congested. PATIENT NAME: ALFONSO RIOS PATHOLOGY DATE OF : 33 REPORT #: [id number] PHYSICIAN: DIANE VALDIVIA PCP: SHAUN CREWS DO REPORT IS CONFIDENTIAL AND NOT TO BE RELEASED WITHOUT AUTHORIZATION [facility] [address] [place], [place] [address] Signed Cystic Duct: Inked, unobstructed. Calculi: Four brown, smooth, and angular stones, aggregate measurement of 2.9 x 2.5 1.7 cm. Mucosa: Green and velvety. Wall thickness: 0.4 cm. Lymph node: No pericystic lymph nodes are grossly identified. Additional: Present within the fundal wall is an area of thickening containing multiple clear cystic structures that measures up to 1.1 cm in greatest dimension. Also present near the fundus is a black suture adjacent to a possible full-thickness defect that is 0.3 cm in greatest dimension. The serosal surface surrounding the defect is inked green. [employer] sections are submitted in cassette (D1). FB (under the direct supervision of a pathologist) The Gross Description was prepared using a voice recognition system. The report was reviewed for accuracy; however, sound-alike word errors, addition and/or deletions may occur. If there is any question about this report, please contact Client Services. ADDITIONAL NOTES: Immunohistochemical and/or in situ hybridization studies were performed on this case with the appropriate positive controls that react as expected. This test was developed and its performance characteristics determined by [facility]. It has not been cleared or approved by the U.S. Food and Drug Administration. The FDA has determined that such clearance or approval is not necessary. This test is used for clinical purposes. It should not be regarded as investigational or for research. [facility] is certified under the Clinical Laboratory Improvement Amendments of 1988 (CLIA) as qualified to perform high complexity clinical laboratory testing. This assay has not been validated for specimens that have been decalcified. PERFORMING LABORATORY: The technical component was performed by [facility], [address] [place] [id number] (CLIA# [id number]). Professional interpretation was performed by [facility], [address] [place] [id number] (CLIA#: [id number]). Diagnostician: Scotty Goldberg MD Pathologist Electronically Signed 10/07/2021 PATIENT NAME: ALFONSO RIOS PATHOLOGY DATE OF : 33 REPORT #: [id number] PHYSICIAN: INC[facility]TE PATHOLOG[facility] PCP: SHAUN CREWS DO REPORT IS CONFIDENTIAL AND NOT TO BE RELEASED WITHOUT AUTHORIZATION [address] [place], [place] [address] Signed Copies: ~ PATIENT NAME: BLANCAALFONSO AICHA PATHOLOGY DATE OF : 33 REPORT #: [id number] PHYSICIAN: DIANE PATHOLOGY PCP: SHAUN CREWS DO REPORT IS CONFIDENTIAL AND NOT TO BE RELEASED WITHOUT AUTHORIZATION
[2021-10-10] MEDS ORDERED: LIPITOR10 MG PO (13:58)
[2021-10-10] MEDS ORDERED: METOPROLOL SUC100 MG PO (13:59)
[2021-10-10] MEDS ORDERED: ARTHRICREAM85 GM TOP (13:59)
[2021-10-10] MEDS ORDERED: HYDROCODON-ACE1 EA10 PO (14:00)
[2021-10-10] MEDS ORDERED: METRONIDAZOLE250 MG PO (14:01)
[2021-10-10] MEDS ORDERED: AMOXICILLIN500 MG PO (14:01)
[2021-10-10] MEDS ORDERED: PEPTO-BISMOL262 MG PO (14:02)
[2021-10-10] MEDS ORDERED: INSULIN GL100 UNIT/1 SUB-Q (14:03)
[2021-10-10] MEDS ORDERED: PANTOPRAZOLE SO40 MG PO (14:03)
[2021-10-10] MEDS ORDERED: HUMALOG100 UNITS/ SUB-Q (14:04)
[2021-10-10] MEDS ORDERED: LIDOCAINE35.44 GM TOP (14:04)
[2021-10-10] MEDS ORDERED: VITAMIN D31250 MC1 PO (14:05)
--- NOTE | 2021-10-12 13:04 | DS ---
[facility] [address] [place], [place] [address] Signed ADMISSION DATE: 09/21/2021 DISCHARGE DATE: 10/11/2021 REASON FOR ADMISSION: This 86-year-old woman is accompanied by her neighbor with complaints of dizziness. She additionally complained of abdominal and pelvic pain. She has previously been seen and treated by Dr. 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 She continues to have a Port-A-Cath in the right subclavian area placed by Dr. Jose C Majano in the past. Her primary care provider is Dr. Crews. She is admitted for further evaluation and care. PERTINENT PHYSICAL EXAMINATION: At time of admission showed an obese, white woman who is cooperative, in no significant distress. Exam was notable primarily for abdominal distention, subsequently considered to be ascites. LABORATORY STUDIES: Admission showed a creatinine of 1.61. Chem profile was otherwise normal. White count was 17.7, hematocrit 28.2 with platelets of 420,000. HOSPITAL COURSE: The patient was admitted, given intravenous fluids and surgical consultation was undertaken as she was noted to have anemia and recent rectal bleeding as well as nausea and inability to tolerate oral intake. A CT scan that had been performed at the time of admission showed a generally normal-appearing liver but ascites around the spleen and perihepatic ascites. Gallstones were noted within the gallbladder. Otherwise, no other abnormality. Recommendation was made for upper endoscopy and possible colonoscopy on the basis of her anemia. She underwent upper endoscopy on September 23, 2021 which showed an ulcerated neoplasm of the anterior wall of the stomach in the midportion considered highly likely to be to account for her anemia. It had an appearance of adenocarcinoma, though possibility of lymphoma was considered based on prior B cell lymphoma. A concurrent limited flexible sigmoidoscopy was performed showing large hemmorhoids. She was subsequently noted to have lymphoma in the biopsy specimen. A CEA level was obtained, which was 22. Her ascites was of unknown etiology and she underwent paracentesis, which was negative for metastatic or neoplastic cells. This was on August 3103/27/2021. She subsequently underwent colonoscopy by or on September 27, 2021, which showed a malignant-appearing mass of the right colon. On September 30, 2021 she underwent laparotomy where she was noted to have extensive omental carcinomatosis, a left adnexal mass, a right subphrenic abscess with inflammation, right colon carcinoma ( which was ulcerated and nearly obstructing) Electronically Signed By: ASAD WINN MD 10/12/21 1304 PATIENT NAME: ALFONSO RIOS DISCHARGE SUMMARY DATE OF : 33 REPORT #: [id number] PHYSICIAN: ASAD WINN MD PCP: SHAUN CREWS DO REPORT IS CONFIDENTIAL AND NOT TO BE RELEASED WITHOUT AUTHORIZATION [address] [address] Signed and subacute calculus cholecystitis. The ulcerated gastric lymphoma lesion was easily palpable. Operation consisted of drainage of the ascites, right colectomy with end-to-side ileotransverse colostomy, total omentectomy, (though incomplete) with tumor debulking, left adnexal mass excision, open cholecystectomy, wedge excision mid body of the stomach for gastric lymphoma and drainage and irrigation writes subphrenic abscess site. She was maintained on broad-spectrum antibiotics postoperatively. She had progressive recovery. She was ultimately found to have adenocarcinoma with multiple mesenteric lymph nodes. The left ovarian mass considered consistent with metastatic colon carcinoma rather than primary ovarina cancer HOWEVER her Ca125 was elevated to 422. The extensive tumor burden of the omentum was cosidered to be consistent with adenocarcinoma as well. 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 Appropriate antibiotic treatment was initiated with flagyl, amoxacillin, peptobismol tablets, and ppi treatment. The gallbladder itself was subacutely inflammed and had multiple large gallstones. Notably, cholangiogram was normal. By the day of discharge, she is ambulating well with assistance, is able to participate fully in occupational physical therapy regimens and the midline incision is healing well. She is tolerating a diabetic solid food diet and improving steadily. DISCHARGE DIAGNOSIS: 1. Stage IV colon carcinoma; status post right colectomy with extended omentectomy and excision of left ovarian mass (final pathology consistent with metastatic disease to the left ovary) but notably with elevated Ca 125 serum tumor marker suspicious for ovarian CA 2. 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 Cholecystectomy for symptomatic gallstones. 4. Ascites. 5. History of B-cell lymphoma ( 2018) DISCHARGE MEDICATIONS: Will include: 1. MiraLAX 1 packet p.o. daily. 2. Pepto-Bismol tablet 524 mg p.o. q.i.d. x8 more days. 3. Seward 5/325 one to two q.8 hours p.r.n. pain. 4. Pantoprazole 40 mg p.o. daily. Electronically Signed By: ASAD WINN MD 10/12/21 1304 PATIENT NAME: ALFONSO RIOS DISCHARGE SUMMARY DATE OF : 33 REPORT #: [id number] PHYSICIAN: ASAD WNIN MD PCP: SHAUN CREWS DO REPORT IS CONFIDENTIAL AND NOT TO BE RELEASED WITHOUT AUTHORIZATION [facility] [address] [facility] [place] [address] Signed 5. Amoxicillin 500 mg p.o. t.i.d. x8 more days. 6. Humalog subcutaneous insulin. 7. Flagyl 250 mg p.o. t.i.d. 8 days. 8. Tylenol plain 1000 mg p.o. q.6 hours p.r.n. pain. 9. Metoprolol 200 mg p.o. at bedtime. 10. Aspercreme to joints for soreness. FOLLOWUP PLAN: She is return to see me in approximately 4 weeks. She is now arranged to see Dr. Gore in the next 2-4 weeks for consideration of palliative chemotherapy interventions as appropriate. MD GIOVANI Hayward/EDILSONL /[id number] cc: MD Dr. Allen Segura MD Copies: ART GORE MD, CYNTHIA MD ~ Electronically Signed By: ASAD WINN MD 10/12/21 1304 PATIENT NAME: ALFONSO RIOS DISCHARGE SUMMARY DATE OF : 33 REPORT #: [id number] PHYSICIAN: ASAD WINN MD PCP: SHAUN CREWS DO REPORT IS CONFIDENTIAL AND NOT TO BE RELEASED WITHOUT AUTHORIZATION
== END 2021-10-11 09:45 | DRG 820 ==
LOC: ED 08:56 → CCU 13:00 → MS 13:00 → CCU 09-26 15:05 → MS 09-27 14:18 → CCU 09-30 16:23 → MS 10-02 15:52
PROVIDERS: Surgery; ADMIT Internal Medicine; ATTEND Internal Medicine
PROC: 30233N1 Transfusion of Nonautologous Red Blood Cells into Peripheral Vein, Percutaneous Approach (ICD-10-PCS; 2021-09-23)
PROC: 0DB78ZX Excision of Stomach, Pylorus, Via Natural or Artificial Opening Endoscopic, Diagnostic (ICD-10-PCS; 2021-09-26)
PROC: 0W9G3ZZ Drainage of Peritoneal Cavity, Percutaneous Approach (ICD-10-PCS; 2021-09-26)
PROC: 0DBK8ZX Excision of Ascending Colon, Via Natural or Artificial Opening Endoscopic, Diagnostic (ICD-10-PCS; 2021-09-28)
PROC: 0D1L0Z4 Bypass Transverse Colon to Cutaneous, Open Approach (ICD-10-PCS; 2021-09-30)
PROC: 0DTU0ZZ Resection of Omentum, Open Approach (ICD-10-PCS; 2021-09-30)
PROC: 0FT40ZZ Resection of Gallbladder, Open Approach (ICD-10-PCS; 2021-09-30)
PROC: 0UB10ZZ Excision of Left Ovary, Open Approach (ICD-10-PCS; 2021-09-30)
PROC: 0W9H0ZZ Drainage of Retroperitoneum, Open Approach (ICD-10-PCS; 2021-09-30)
PROC: 0DBF0ZZ Excision of Right Large Intestine, Open Approach (ICD-10-PCS; principal; 2021-09-30 11:00)
PROC: 0DB60ZZ Excision of Stomach, Open Approach (ICD-10-PCS; 2021-09-30 11:00)
PROC: 0W9G0ZZ Drainage of Peritoneal Cavity, Open Approach (ICD-10-PCS; 2021-09-30 11:00)
DX: C88.4 Extranodal marginal zone B-cell lymphoma of mucosa-associated lymphoid tissue [MALT-lymphoma] (principal); K65.1 Peritoneal abscess; C18.2 Malignant neoplasm of ascending colon; C78.6 Secondary malignant neoplasm of retroperitoneum and peritoneum; C79.60 Secondary malignant neoplasm of unspecified ovary; R18.8 Other ascites; C77.2 Secondary and unspecified malignant neoplasm of intra-abdominal lymph nodes; C79.31 Secondary malignant neoplasm of brain; N17.9 Acute kidney failure, unspecified; Z20.822 Contact with and (suspected) exposure to COVID-19; K80.12 Calculus of gallbladder with acute and chronic cholecystitis without obstruction; K25.9 Gastric ulcer, unspecified as acute or chronic, without hemorrhage or perforation; D63.0 Anemia in neoplastic disease; K64.8 Other hemorrhoids; K57.30 Diverticulosis of large intestine without perforation or abscess without bleeding; B96.81 Helicobacter pylori [H. pylori] as the cause of diseases classified elsewhere; Z96.651 Presence of right artificial knee joint; E11.22 Type 2 diabetes mellitus with diabetic chronic kidney disease; K29.70 Gastritis, unspecified, without bleeding; E78.00 Pure hypercholesterolemia, unspecified; M25.569 Pain in unspecified knee; I12.9 Hypertensive chronic kidney disease with stage 1 through stage 4 chronic kidney disease, or unspecified chronic kidney disease; N18.30 Chronic kidney disease, stage 3 unspecified; D72.829 Elevated white blood cell count, unspecified; Z95.828 Presence of other vascular implants and grafts; Z98.49 Cataract extraction status, unspecified eye; Z88.7 Allergy status to serum and vaccine; Z79.899 Other long term (current) drug therapy; Z79.4 Long term (current) use of insulin
CPT/HCPCS: 00811; 00840; 36415; 71045; 73560; 74176; 80048; 80053; 81001; 82378; 82570; 82945; 83036; 83690; 83735; 83986; 84157; 84300; 84550; 85025; 85060; 86304; 86850; 86900; 86901; 86922; 87070; 87075; 87205; 87502; 88304; 88305; 88307; 88309; 88341; 88342; 88360; 88364; 88365; 89051; 93005; 93010; 93306; 97110; 97116; 97161; A9270; C9113; C9803; J0131; J0690; J0694; J1100; J1170; J1200; J1644; J1815; J1885; J2001; J2250; J2270; J2405; J2543; J2550; J2704; J3010; J3475; J7121; P9016; P9047; U0003